=== PATIENT | male | born 1965 | race African-American/Black ===

== ENCOUNTER → 2017-11-18 09:14 | Outpatient (CLI) | payer BC, SELFPAY ==
--- NOTE | 2017-11-18 09:17 | MRI_ITS ---
STUDY: MRI LUMBAR SPINE WITHOUT CONTRAST REASON FOR EXAM: Male, 52 years old. spinal stenosis, BACK PAIN RADIATES INTO L HIP X 1.5 YRS. TECHNIQUE: Standardized fat and water weighted pulse sequences were obtained in the sagittal and axial planes. COMPARISON: None FINDINGS: There is a transitional morphology. Confirmation of Lumbar numbering before surgical intervention is recommended. T12-L1: Normal endplates. Normal disc height, hydration and morphology. Normal central canal and bilateral lateral recesses. Normal bilateral intervertebral neural foramina. There is straightening of the normal lumbar lordosis. There is no substantial scoliosis. Normal conus medullaris that terminates at the L1 L1-2: Normal endplates. Normal disc height, hydration and morphology. Normal central canal and bilateral lateral recesses. Normal bilateral intervertebral neural foramina. There is bilateral facet hypertrophy. L2-3: Normal endplates. Normal disc height, hydration and morphology. Normal bilateral intervertebral neural foramina. There is bilateral facet hypertrophy with no central canal stenosis.. L3-4: There is minimal disc space narrowing and relatively gasless. There is a minimal disc bulge and facet hypertrophy with moderate central canal stenosis. There is mild bilateral foraminal stenosis. L4-5: There is minimal disc space narrowing and relatively gasless. There is a minimal disc bulge and facet hypertrophy with mild central canal stenosis. There is mild bilateral foraminal stenosis. L5-S1: Normal endplates. Normal disc height, hydration and morphology. Normal central canal and bilateral lateral recesses. Normal bilateral intervertebral neural foramina. There is bilateral facet arthropathy. Normal visualized sacral ala. Normal visualized paraspinous soft tissue structures. MRI/Spine Lumbar (Routine) IMPRESSION: Transitional morphology. L3/L4: Moderate central canal stenosis. Electronically Signed: Ignacio Chahal MD at 9:08 EDT Tel , Service support ,
== END ==
PROVIDERS: Family Provider Family Medicine; PCP Family Medicine; Visit Provider Family Medicine
DX: M48.062 Spinal stenosis, lumbar region with neurogenic claudication (principal)
CPT/HCPCS: 72148

== ENCOUNTER → 2018-01-24 13:40 | Outpatient (CLI) | payer BC, SELFPAY ==
--- NOTE | 2018-01-24 13:42 | RAD_ITS ---
STUDY: X-RAY - PELVIS AND BILATERAL HIPS REASON FOR EXAM: Male, 52 years old. Bilateral hip pain. TECHNIQUE: Radiological exam, hip, bilateral, with pelvis when performed; minimum of 5 views COMPARISON: None. FINDINGS: There is a non-specific bowel gas pattern. Normal visualized soft tissue structures. Normal bilateral iliac wings, sacroiliac joints and visualized sacrum. Normal bilateral superior and inferior pubic rami. Normal pubic symphysis. Normal bilateral ischial tuberosities. There are osteoarthritic changes of the right femoral head with marginal osteophyte formation. There is osteoarthritic spur formation of the right acetabular rim. There is severe articular joint space narrowing of the right hip. There are osteoarthritic changes of the left femoral head with marginal osteophyte formation. Normal left acetabulum. There is severe articular joint space narrowing of the left hip. RAD/L/S Spine Min 4 Views IMPRESSION: Marked degenerative changes of the bilateral hips. Electronically Signed: Cristian Gann DO at 15:46 EDT Tel [phone], Service support ,
--- NOTE | 2018-01-24 14:57 | RAD_ITS ---
STUDY: X-RAY - PELVIS AND BILATERAL HIPS REASON FOR EXAM: Male, 52 years old. Bilateral hip pain. TECHNIQUE: Radiological exam, hip, bilateral, with pelvis when performed; minimum of 5 views COMPARISON: None. FINDINGS: There is a non-specific bowel gas pattern. Normal visualized soft tissue structures. Normal bilateral iliac wings, sacroiliac joints and visualized sacrum. Normal bilateral superior and inferior pubic rami. Normal pubic symphysis. Normal bilateral ischial tuberosities. There are osteoarthritic changes of the right femoral head with marginal osteophyte formation. There is osteoarthritic spur formation of the right acetabular rim. There is severe articular joint space narrowing of the right hip. There are osteoarthritic changes of the left femoral head with marginal osteophyte formation. Normal left acetabulum. There is severe articular joint space narrowing of the left hip. RAD/Hips B/L min 2 views w/ Pelvis IMPRESSION: Marked degenerative changes of the bilateral hips. Electronically Signed: Cristian Gann DO at 15:46 EDT Tel [phone], Service support ,
== END ==
PROVIDERS: Family Provider Family Medicine; PCP Family Medicine; Visit Provider Orthopaedic Surgery
DX: M54.5 Low back pain (principal); M25.551 Pain in right hip; M25.552 Pain in left hip
CPT/HCPCS: 72110; 73521

== ENCOUNTER → 2018-01-30 10:00 | Outpatient (CLI) | payer BC, SELFPAY ==
--- NOTE | 2018-01-30 10:05 | MRI_ITS ---
STUDY: MRI CERVICAL SPINE WITHOUT CONTRAST REASON FOR EXAM: Male, 52 years old. Cervical radiculopathy. TECHNIQUE: Standardized fat and water weighted pulse sequences were obtained in the sagittal and axial planes. COMPARISON: None FINDINGS: Normal foramen magnum and brainstem-cervical cord junction. Normal craniovertebral junction. Pronounced degenerative narrowing of the predental space. Normal lateral atlantoaxial articulations. Normal odontoid process. Mild cervical kyphosis at the C4-C5 disc level. Normal vertebral bodies and posterior osseous elements. C2-3: Normal endplates. Normal disc height, signal and morphology. Normal central canal and intervertebral neural foramina. C3-4: Normal endplates. Mild disc space height narrowing. Left posterior disc extrusion with displacement of the left C4 nerve root sleeve (series 2 and 3, image 6; series 7, images 124-131). C4-5: Prominent anterior and posterior marginal spurs and prominent posterior midline disc protrusion. Severe central canal stenosis with spinal cord compression. The AP canal diameter is 2 mm. There is intrinsic signal abnormality of the spinal cord due to myelomalacia from chronic cord compression. C5-6: Smaller anterior and posterior marginal spurs. Normal endplates. Normal disc height with moderate loss of disc hydration. Mild central canal stenosis. The AP canal diameter is 5 mm but the transverse canal diameter is 13.5 mm wide. Moderately pronounced stenosis of the bilateral intervertebral neural foramina. C6-7: Small anterior and posterior marginal spurs. Normal endplates. Mild disc space height narrowing. Normal central canal and bilateral intervertebral neural foramina. C7-T1: Normal endplates. Normal disc height. Small posterior bulging disc. Normal central canal and bilateral intervertebral neural foramina. T1-T2: Normal endplates. Minimal degenerative anterolisthesis of T1 on T2. Normal central canal and bilateral intervertebral neural foramina. T2-T3: (Sagittal only). Normal endplates. Moderate anterior disc space height narrowing. Normal central canal and bilateral intervertebral neural foramina. T3-T4: (Sagittal only). Normal endplates. Normal disc height and morphology. Normal central canal and bilateral intervertebral neural foramina. Abnormal cervical spinal cord due to severe central canal stenosis and the spinal cord compression at C4-C5 disc level. There is intramedullary high signal intensity of the compressed spinal cord due to myomalacia from chronic cord compression. Normal visualized soft tissue structures. MRI/Spine Cervical (Routine) IMPRESSION: 1. Severe central canal stenosis at C4-C5 disc level with posterior midline disc protrusion and posterior marginal spurs causing chronic cord compression with myelomalacia of the spinal cord. 2. Left-sided C3-C4 posterior disc extrusion with displacement of the left C4 nerve root sleeve. 3. Mild central canal stenosis at C5-C6 this level and moderately pronounced stenosis of the bilateral C5-C6 intervertebral neural foramina. Electronically Signed: Vishal Miguel MD at 14:27 EDT , Service support ,
== END ==
PROVIDERS: Family Provider Family Medicine; PCP Family Medicine; Visit Provider Orthopaedic Surgery
DX: M54.12 Radiculopathy, cervical region (principal)
CPT/HCPCS: 72141

== ENCOUNTER 2018-03-12 11:05 | Emergency (ER) | payer BC, SELFPAY ==
[2018-03-12 11:06] VITALS: BP 144/88; PULSE 106; RESP 16; TEMP 36.6; O2SAT 98; BMI 30.5
--- NOTE | 2018-03-12 11:28 | ED.VISSUMM ---
- ER Visit Summary Date of Service: 03/12/18 Chief Complaint: Back pain History of Present Illness: The patient is a 52 M with a history of back spasms. He has had upper lumbar spasms over the last 4 days or so. Patient did have neck surgery 6 days ago at [facility]. He is unsure if he is compensating differently because of his neck surgery or if it was positioning when he was on the operating table that triggered his spasms again. Patient was seen at [place] yesterday and was given morphine, ibuprofen, and Flexeril. Patient does have oxycodone at home his last dose was 5-1/2 hours ago. Physical Examination: Vital signs are unremarkable. Patient is sitting in a wheelchair at bedside. Head neck examination reveals soft c-collar in place. Heart is regular rate and rhythm. Lung sounds are clear. Abdomen is soft with no focal tenderness. Back examination reveals tenderness in the lumbar paraspinals, left greater than right. Lower external examination reveals good strength and sensation throughout with strong distal pulses. Test Results: [] Emergency Department Course and Treatment: Patient was given 1 mg of IM Dilaudid and 5 mg of p.o. Valium. Repeat evaluation 1 hour later reveals the patient with improvement in his symptoms. He still has very mild tension in his lower back but states overall he feels significantly improved. He will be given Valium to use at home for muscle spasm if needed. He currently has Flexeril and was told to take one or the other, but not to combine them. Treatment Plan: [] Disposition: Discharge Impression: Muscle spasm, improved This note was generated with [employer] dictation software. It may contain incorrect words, spelling, and punctuation that were not noted in review of the chart prior to signing ED Disposition - Plan for ED Patient: Chief Complaint: Back Referrals: Danyel Calabrese DO [Primary Care Provider] -
[2018-03-12] MEDS: diazePAM 5 MG Tablet PO (11:36)
[2018-03-12] MEDS: HYDROmorphone 1 MG/ML Syringe IM (11:36)
--- NOTE | 2018-03-12 12:45 | ED.DEP ---
ED Disposition - Plan for ED Patient: Disposition: Home or Assisted Living Chief Complaint: Back Instructions: ED Spasm Muscle Prescriptions: Diazepam [Valium] 5 mg PO Q8 PRN #10 tablet PRN Reason: Muscle Spasm Referrals: Danyel Calabrese DO [Primary Care Provider] - 1 Week
[2018-03-12 13:12] VITALS: BP 150/91; PULSE 95; RESP 18; O2SAT 95
== END 2018-03-12 13:13 | disposition home or self-care (01) ==
PROVIDERS: Emergency Provider Emergency Medicine; Family Provider Family Medicine; PCP Family Medicine
DX: M62.830 Muscle spasm of back (principal); M54.5 Low back pain; I10 Essential (primary) hypertension; E78.00 Pure hypercholesterolemia, unspecified; Z79.82 Long term (current) use of aspirin; Z79.899 Other long term (current) drug therapy
CPT/HCPCS: 96372; 99283

== ENCOUNTER 2018-04-19 07:20 | Inpatient (IN) | payer BC, SELFPAY ==
[2018-04-07 11:00] VITALS: BP 157/95; PULSE 98; RESP 16; TEMP 36.8; O2SAT 98; BMI 30.7
--- NOTE | 2018-04-07 11:09 | SDCEKG_ITS ---
Test Reason : Blood Pressure : / mmHG Vent. Rate : 093 BPM Atrial Rate : 093 BPM P-R Int : 172 ms QRS Dur : 100 ms QT Int : 344 ms P-R-T Axes : 039 -43 020 degrees QTc Int : 427 ms Normal sinus rhythm Left axis deviation Abnormal ECG Confirmed by NETTA BADILLO, BUSHRA ([id number]), video news editor RICHARD DRAPER ([id number]) on 04/12/2018 8:33:21 AM Referred By: Thad Jimenez Confirmed By:BUSHRA CHADWICK MD
[2018-04-07 11:40] LABS: Absolute Lymphocyte Count 1.41 X10^3/ul (0.83-4.51); Absolute Neutrophil Count 2.9 X10^3/uL (2.0-7.7); Basophil# 0.05 X10^3/uL; Eosinophil# 0.11 X10^3/uL; Eosinophils% 2.3 % (0-5); Hematocrit 38.6 % (40-54); Hemoglobin 12.5 g/dl (13.0-16.5); Lymphocyte # 1.41 X10^3/ul (4.0); Lymphocyte % 29.3 % (19-41); Mean Corp Hgb Conc 32.4 g/gl (32-36); Mean Corpuscular Hgb 22.8 pg (27.0-32.0); Mean Corpuscular Volume 70.4 fL (80-94); Mean Platelet Vol. 9.4 fl (6.2-12.0); Monocyte# 0.35 X10^3/uL; Monocyte% 7.3 % (0-10); Neutrophil # 2.88 X10^3/uL (2.7-7.7); Neutrophil % 59.9 % (47-70); Platelet Count 242 K/mm3 (150-450); RBC Distribution Width CV 16.5 % (11.6-14.6); RBC Distribution Width SD 41.9 fl (35.1-43.9); Red Blood Count 5.48 M/mm3 (4.6-6.2); White Blood Count 4.8 K/mm3 (4.4-11.0)
[2018-04-07 11:41] LABS: POSITIVE COUNT NO; POSITIVE DIFFERENTIAL NO; POSITIVE MORPHOLOGY NO
[2018-04-07 11:45] LABS: Prothrombin Time (Protime)PT. 13.1 SECONDS (11.7-14.9)
[2018-04-07 11:46] LABS: Partial Thromboplast Time 25.8 Seconds (24.1-36.2)
[2018-04-07 12:03] LABS: AST(SGOT) 19 U/L (15-37); Alanine Aminotransfer ALT/SGPT 26 U/L (16-61); Albumin, Serum 3.7 g/dL (3.2-5.0); Alkaline Phosphatase 106 U/L (45-117); Anion Gap 11 (5-15); BUN 12 mg/dL (7-18); Bilirubin, Direct 0.19 mg/dL (0.00-0.30); Calcium,Total 9.1 mg/dL (8.5-10.1); Chloride 101 mmol/L (98-107); EST Glomerular Filtration Rate 107 mL/min (>60); Est Glom Filt Rate - Afr Amer 130 mL/min (>60); Estimated Creatinine Clearance 92.89 ml/min; Globulin 4.2 g/dL (2.2-4.2); Glucose 113 mg/dL (74-106); Potassium 3.8 mmol/L (3.5-5.1); Protein, Total 7.9 g/dL (6.4-8.2); Sodium Level 139 mmol/L (136-145)
--- NOTE | 2018-04-09 08:38 | HP.PCM_ITS ---
History and Physical DATE OF SURGERY: 04/19/2018 SCHEDULED PROCEDURE: Direct anterior left total hip arthroplasty HISTORY OF PRESENT ILLNESS: This is a 52-year-old male who has been having ongoing bilateral hip pain for over one year. Pain can reach as high as a 7/10. Pain is sharp and stabbing. He has increased pain going up and down stairs. He has difficult time sleeping due to his pain. Pain is increased with walking. He does get bilateral groin pain. He has difficult time with housework due to his bilateral hip pain. He feels his activities of daily living have been significantly affected. Patient does have start up pain. Patient denies previous surgery on bilateral hips. He has required a cane for ambulatory assistance. Patient has tried conservative measures consisting of ice and previous cortisone injection in pain management with minimal relief. Patient has tried rest, heat, and elevation with no relief. He has tried physical therapy with no relief in symptoms. Patient has been to the chiropractor with no relief in symptoms. Patient recently on March 06 underwent a cervical spine surgery at the [facility] and is doing well postoperatively. Patient states bilateral hip pain continues to progress. After failing conservative measures and discussing all treatment options with Dr. Thad Jimenez, the patient would like to proceed with a direct anterior left total hip arthroplasty. Patient has medical history pertinent for hypertension. He currently denies any chest pain, shortness of breath, fevers chills, recent infections. REVIEW OF SYSTEMS: ROS: Const: Reports difficulty sleeping, but denies anorexia, change in appetite, fever and weight change. CV: Denies chest pain, heart murmur, irregular heartbeat and peripheral vascular disease. Resp: Denies asthma, cough, pneumonia, sleep apnea, shortness of breath, tuberculosis and wheezing. GI: Denies constipation, diarrhea, heartburn, nausea, rectal itching, bloody stools and vomiting. : Denies incontinence. Musculo: Reports pain, trouble walking and weakness, but denies leg swelling. Skin: Denies Raynaud's, history of shingles and tattoo. Neuro: Reports numbness/tingling but denies ambulatory dysfunction, dizziness and tremor. Psych: Reports insomnia and stress, but denies anxiety, depression and mental illness. Matt/Lymph: Denies anemia, bleeding/bruising tendency and past transfusion. Reviewed, no changes. PAST MEDICAL HISTORY: Advance Care Plan: No Advance Directives Effective Date: 04/07/2018 PMH: Medical Problems: High Blood Pressure Accidents: None Surgical Hx: Hernia Repair - 7 YEARS AGO C-3 C-4 C-5 C-6 Removal - (03/06/2018) Anesthesia Complications: None Assistive Devices: Glasses Reviewed and updated. SOCIAL HISTORY: SH: Marital: Single.Occupation: Currently Working.Work Status: Currently Working.Hand Dominance: Right-handed. Personal Habits: Cigarette Use: Never Smoked Cigarettes.Alcohol: Occasionally.Drug Use: Denies Use.Enjoy Exercising: Exercises 1-3 x/month. Reviewed, no changes. VITALS: Ht: 65 Wt: 184lb Wt k.462 BMI: 30.6 BP: 156/103 Pulse: 102 Resp: 16 T: 97.8 T: 36.6C ALLERGIES: No Known Drug Allergy MEDICATIONS: Edarbi 80 mg 1 daily, Amlodipine Besylate 5 mg 1 by mouth every day, Atorvastatin Calcium 10 mg PRE-OP EXAM: General appearance:NORMAL Other: Eyes: Conjunctivae and lids: NORMAL Pupils: ERR Ears, Nose, Mouth, and Throat: NORMAL Other: Inspection of lips, teeth and gums: NORMAL Other: Neck: Examination of neck: no masses noted. Respiratory: Assessment of respiratory effort: NORMAL Other: Auscultation of lungs: clear to auscultation no wheezes, rhonchi or rales. Cardiovascular: Auscultation of heart: regular rate and rhythm, no murmurs, gallops or rubs. Exam of carotid arteries: NORMAL Other: Gastrointestinal: Exam of abdomen: soft, nontender, nondistended bowel sounds present. PHYSICAL EXAMINATION: Patient walks with an antalgic gait. Left hip is cool to touch without erythema. Left hip flexion 85, internal rotation to neutral, external rotation to 25. Sensation intact to light touch. Neurovascularly intact. IMAGING STUDIES: X-rays were obtained at [facility] on April 07, 2018 including 2 views AP pelvis and AP left hip reveals severe osteoarthritis bilaterally with subchondral sclerosis, joint space narrowing, and osteophyte formation. There is [id number] contact in bilateral hips. No acute finding for fracture or dislocation. No lytic or blastic lesion. IMPRESSION: 1. Severe left hip osteoarthritis 2. Severe right hip osteoarthritis 3. Hypertension 4. Recent cervical spine surgery PLAN: Dr. Jimenez did discuss and review with the patient all treatment options including surgical versus nonsurgical options. Patient does wish to proceed with the above-stated procedure. Potential risks, benefits, and complications of the procedure were discussed in detail including but not limited to , infection, nerve and blood vessel damage, persistent pain, numbness, tingling, paresthesias, blood clot, pulmonary embolism, and requirement for possible further surgery. The patient expressed full understanding and has no further questions for the doctor. Patient does agree to proceed with the above-stated procedure and has signed the surgery consent form. We have obtain surgical clearance from patient's primary care physician Dr. Calabrese. ___ I have re-examined the patient. There are no clinical changes since date of exam. ___ See progress notes for changes. ___ Dictated on admission Date: Time: Signature:
--- NOTE | 2018-04-13 10:12 | CASEMGMT ---
Call placed to patient to discuss discharge needs following upcoming surgery. Patient had planned to return home, however, he mentioned going to inpatient rehab if insurance will cover and there's bed availability. Patient wants to have fastest route to getting back on feet. Patient does not have outpatient physical therapy set up yet, has limited assistance with transportation - will have to ask friends if they are able/willing to assist. Patient has a niece that may be able to assist at home if patient returns home after discharge. Patient does have a walker. No grab bars, toilet riser, shower seat. Patient had questions re: insurance coverage for shower seat and/or toilet riser - informed patient insurance generally does not cover these items but they can be purchased OTC. Patient lives in a split level home, bedroom and bathroom are on 2nd level, approx. 6 steps. Informed patient that RN-CM will follow up with him after surgery to discuss discharge planning further. Lorie Ames LPN Clinical Support
[2018-04-19] VITALS (9 sets, daily range): BP systolic 111–157; BP diastolic 62–100; PULSE 85–96; RESP 16–18; TEMP 36.4–37.2; O2SAT 93–98; BMI 30.7
[2018-04-19] MEDS: Acetaminophen 500 MG Tablet 1000 MG PO ×3 (07:57→22:39)
[2018-04-19] MEDS: Celecoxib 200 MG Capsule 400 MG PO (07:57)
[2018-04-19] MEDS: oxyCODONE HCl Cr 10 MG Tablet PO (07:57)
[2018-04-19] MEDS: Lactated Ringers 1,000 ML 999 ML IV (08:20)
[2018-04-19] MEDS: Scopolamine 1mg/72hr Patch 1 PATCH TD (08:46)
[2018-04-19] MEDS: Cefazolin 2 GM in 0.9% Normal Saline 100 ML IV (09:03)
--- NOTE | 2018-04-19 09:28 | RAD_ITS ---
STUDY: X-RAY - PELVIS AND LEFT HIP REASON FOR EXAM: Male, 52 years old. Postoperative study TECHNIQUE: Radiological exam, hip, unilateral, with pelvis when performed; 2 or 3 views. COMPARISON: None. FINDINGS: There is a non-specific bowel gas pattern. Normal visualized soft tissue structures. There is narrowing with cortical sclerosis and osteophyte formation of the sacroiliac joint consistent with degenerative osteoarthritic changes. Normal bilateral superior and inferior pubic rami. There are degenerative changes of the pubic symphysis with articular narrowing and sclerosis. Normal bilateral ischial tuberosities. Left hip arthroplasty in good alignment. RAD/Hip Min 2 Views (Portable) IMPRESSION: Left hip arthroplasty in good alignment. Electronically Signed: Leandra Polk MD at 13:49 EDT Tel , Service support ,
--- NOTE | 2018-04-19 09:48 | RAD_ITS ---
STUDY: X-RAY - PELVIS AND LEFT HIP REASON FOR EXAM: Male, 52 years old. LEFT ANTERIOR TOTAL HIP TECHNIQUE: Radiological exam, hip, unilateral, with pelvis when performed; 5 view intraoperative study. Fluoroscopy time is 14.6 seconds. COMPARISON: None. FINDINGS: A left hip arthroplasty is seen in good alignment. RAD/Hip 1 view with Pelvis IMPRESSION: A left hip arthroplasty is seen in good alignment. Electronically Signed: Leandra Polk MD at 15:02 EDT Tel , Service support ,
--- NOTE | 2018-04-19 11:00 | OP.PCM_ITS ---
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 Accolade 2 Alexa femoral stem size 4 127? 2. Alexa trident 2 acetabular shell size 54 mm 3. Alexa X3 polyethylene E 4. Alexa Biolox delta 36mm, 2.5mm femoral head Brief history operative indications: 52 yo m who failed conservative measures for their hip osteoarthritis. X-rays were consistent with osteoarthritis including joint space narrowing, osteophyte formation and subchondral cysts. Total hip replacement was discussed with the patient with risks and benefits including but not limited to blood loss, DVTs, PEs, neurovascular damage, dislocation, general risks of anesthesia including loss of life. Patient demonstrated an understanding medical clearance is obtained the patient was consented for surgery. Procedure: On the date of procedure the patient's L hip was marked in the preoperative area. Patient was then taken back to the operating room where anesthesia assumed control of the C-spine and airway and administered anesthetic. Patient was transferred to the operating table and placed in the supine position. The hips were placed at the break of the bed and a sacral bump was placed. The L lower extremity was then prepped out in a sterile fashion using chlorhexidine while the surgeon scrubbed. The PA was vital in the positioning of the patient. Upon reentering the room the L lower extremity was draped in the standard orthopedic fashion and the incision was marked. A timeout was called and everyone agreed upon the side, the site, the procedure be performed, antibody given, and patient's identity. At this time incision was made through skin, subcutaneous tissue, and fat down to fascia. The fascia was then incised and the TFL was retracted laterally. A retractor was placed on the lateral border of the femoral neck. Attention was directed to the inferior portion of the approach and all crossing vessels were identified and appropriately coagulated. A retractor was then placed on the medial portion of the femoral neck. The anterior capsule was then cleared of all soft tissue and then H shaped capsulotomy was made. The retractors were then placed inside the capsule. The femoral neck was identified and a cleanup cut was made. At this time a power corkscrew was used to remove the femoral head. Attention was then turned toward the acetabulum where the soft tissues were appropriately retracted and the acetabulum was sequentially reamed to 54 mm. A 54 mm cup was then selected and impacted into place. Acetabular liner was impacted into place and locking mechanism was verified. The position of the acetabular cup was then verified under live fluoroscopy. Attention was then turned to the femur. Soft tissue releases on the medial and lateral femoral neck were appropriately done, the leg was externally rotated and lateralized. A Meraz retractor was placed medially and proximally to the greater trochanter this allowed appropriate visualization and exposure of the femoral canal. Rongeour was then used to remove excess lateral bone. A canal finder and entry broach were used to open the proximal canal. Once we verified we were down the femoral canal we subsequently broached up to a size 4 femur. The appropriate neck was placed in the previously selected head was trialed with a 2.5 mm neck. Traction was pulled and the hip was reduced with internal rotation. Once it was appropriately reduced and stability was checked. There was minimal shuck, equal leg lengths and appropriate stability with hyperextension and external rotation as well as with 90? flexion and internal rotation. Fluoroscopy was then also used to verify the position of the components and leg lengths using the contralateral side for comparison. The trial components were then dislocated the proximal femur was again exposed and the components were removed from the wound. The final components were verified and opened. The wound was copiously irrigated out with normal saline. The acetabulum was checked for any residual debris. The final components were placed and impacted. Traction and internal rotation were again used to reduce the hip. After adequate reduction the hip remained stable with appropriate leg lengths. The final components were once again checked with live fluoroscopy and were found to be satisfactory. The wound was then copiously irrigated with normal saline once more, and hemostasis was obtained. Closure was then done using #1 Vicryl runner to close the fascia. A 2-0 vicryl interuppted sutures were used to close the subcutaneous skin. A 3-0 Monocryl and Steri-Strips were used for final skin closure. A Silverlon dressing was placed. Patient was awakened by anesthesia and transferred to the [facility]. Patient was then transferred to the PACU for recovery. Postoperative plan: Patient will get 24 hours postop antibiotics. Patient will get in-house physical therapy and will be weight-bear as tolerated. Patient will follow up in office in 2 weeks for a wound check and x-rays. Grafts/Implants Used: Alexa Accolade 2 - Complications None - Admit VTE Documentation VTE Present on Admission: No VTE Mechan Device Prophylaxis: SCD's, Thigh High FRANSISCO Hose VTE Pharm Prophylaxis ordered?: Yes
[2018-04-19] MEDS: Lactated Ringers 1,000 ML 125 ML IV (12:48)
[2018-04-19] MEDS: Famotidine 20 MG Tablet PO (12:48)
[2018-04-19] MEDS: Senna/Docusate Sodium 1 Tablet 2 TABLET PO ×2 (12:48→22:39)
--- NOTE | 2018-04-19 13:43 | CASEMGMT ---
Social Work Met with pt in room to discuss d/c plan. Prior to admission pt requesting to go to Inpt Rehab unit at d/c. SW spoke with pt about d/c plans. Pt states he would like to go home is possible but does live alone in a split level home. Pt groggy from surgery at this time and stating having a hard time thinking. SW informed pt that SW will return tomorrow to assess for d/c needs. Pt is agreeable to this. WILLIE Muniz
[2018-04-19] MEDS: Cefazolin 1 GM/50 ML BAG IV (16:47)
[2018-04-19] MEDS: Ferrous Sulfate 325 MG Tablet PO (16:48)
[2018-04-19] MEDS: Folic Acid 1 MG Tablet PO (16:48)
[2018-04-19] MEDS: Aspirin 81 MG TAB.CHEW PO (16:48)
[2018-04-19] MEDS: DiphenhydrAMINE 25 MG Capsule 50 MG PO (22:38)
[2018-04-20] MEDS: Cefazolin 1 GM/50 ML BAG IV (00:51)
[2018-04-20] MEDS: Acetaminophen 500 MG Tablet 1000 MG PO ×3 (05:40→21:11)
[2018-04-20] MEDS: oxyCODONE 5 MG Tablet PO ×2 (05:40→21:11)
[2018-04-20 05:45] VITALS: BP 127/76; PULSE 71; RESP 16; TEMP 36.4; O2SAT 96
[2018-04-20 05:50] LABS: Hematocrit 29.6 % (40-54); Mean Corp Hgb Conc 33.8 g/gl (32-36); Mean Corpuscular Hgb 23.8 pg (27.0-32.0); Mean Corpuscular Volume 70.3 fL (80-94); Mean Platelet Vol. 10.3 fl (6.2-12.0); Platelet Count 263 K/mm3 (150-450); RBC Distribution Width CV 16.2 % (11.6-14.6); RBC Distribution Width SD 40.9 fl (35.1-43.9); Red Blood Count 4.21 M/mm3 (4.6-6.2); White Blood Count 9.4 K/mm3 (4.4-11.0)
[2018-04-20 05:58] LABS: Scan Indicated on CBC? Y/N NO
[2018-04-20 06:10] LABS: Anion Gap 8 (5-15); BUN 12 mg/dL (7-18); BUN/Creat Ratio 15.9 RATIO (10-20); Calcium,Total 8.9 mg/dL (8.5-10.1); Chloride 103 mmol/L (98-107); Creatinine, Serum 0.76 mg/dL (0.70-1.30); EST Glomerular Filtration Rate 114 mL/min (>60); Est Glom Filt Rate - Afr Amer 138 mL/min (>60); Estimated Creatinine Clearance 97.78 ml/min; Glucose 123 mg/dL (74-106); Potassium 4.5 mmol/L (3.5-5.1); Sodium Level 138 mmol/L (136-145)
--- NOTE | 2018-04-20 08:28 | PCM.PN.ORT ---
Subjective: The patient was sitting in bedside chair upon examination. Patient denies any chest pain, shortness of breath, dizziness, lightheadedness, nausea or vomiting, or calf pain. Patient does report pain in the left hip but at this point medications are helping. No adverse overnight events. Patient in March 06, 2018 underwent a cervical spine surgery in which fusion was done. Patient at this time does wish to try to go home but does live at home alone and does require stairs. He is also considering possibly inpatient rehab due to the recent surgery on his neck and hip while living home alone. He has not been through physical therapy today yet. Case management is involved in helping with discharge planning. Objective: Vital signs stable and afebrile. Patient is able to plantarflex and dorsiflex actively. Sensation is intact to light touch to saphenous, sural, superficial and deep peroneal, and tibial distribution. Patient does report tingling into the left toes but states this is been going on prior to the surgery. Dressing is with minimal drainage over the middle one third. There is swelling to the left thigh, thigh is soft and supple. Negative Homans bilaterally, negative signs and symptoms of DVT. - Physical Exam General: Alert, Oriented x3, Cooperative, No apparent distress Vital Signs Temp Pulse Resp BP Pulse Ox 97.5 F L 71 16 127/76 H 96 04/20/18 05:45 04/20/18 05:45 04/20/18 05:45 04/20/18 05:45 04/20/18 05:45 Oxygen Flow Rate (L/min) 2 Oxygen Delivery Method Room Air Weight: 83.9 kg Body Mass Index (BMI) 30.7 Intake and Output for Last 24 Hours 04/18/18 04/19/18 04/20/18 23:59 23:59 23:59 Intake Total 3002 / 3002 1145 / 1145 Balance 3002 / 3002 1145 / 1145 Laboratory Tests Past 24 Hrs 04/20/18 04/20/18 05:18 05:18 WBC 9.4 RBC 4.21 L Hgb 10.0 L Hct 29.6 L MCV 70.3 L MCH 23.8 L MCHC 33.8 RDW 16.2 H RDW Differential 40.9 Plt Count 263 MPV 10.3 Sodium 138 Potassium 4.5 Chloride 103 Carbon Dioxide 27.0 Anion Gap 8 BUN 12 Creatinine 0.76 Estim Creat Clear Calc 97.78 Est GFR (MDRD) Af Amer 138 Est GFR (MDRD) Non-Af 114 BUN/Creatinine Ratio 15.9 Glucose 123 H Calcium 8.9 Medical Necessity - Tobacco Use Smoking Status: Former smoker Assessment/Plan 1. S/P left total hip arthroplasty POD #1 2. Continue Pain Medications: Tylenol and OxyIR 3. DVT Prophylaxis: Aspirin 81 mg twice daily for 4 weeks 4. PT/OT: Weightbearing as tolerated 5. H & H: 10.0/29.6, asymptomatic 6. Encouraged Incentive Spirometry 7. Disposition: Plan will be for possible discharge tomorrow. Case management is involved with discharge planning. Depending on how patient does with physical therapy the plan will be for home with home health therapy versus inpatient rehab. Patient also underwent a previous cervical fusion on March 06, 2018. Patient does live home alone and does require steps for his bedroom/bathroom.
[2018-04-20] MEDS: Ferrous Sulfate 325 MG Tablet PO ×2 (09:09→17:46)
[2018-04-20] MEDS: Aspirin 81 MG TAB.CHEW PO ×2 (09:09→17:46)
[2018-04-20] MEDS: Folic Acid 1 MG Tablet PO ×2 (09:10→17:46)
[2018-04-20] MEDS: amLODIPine 5 MG Tablet PO (09:11)
[2018-04-20] MEDS: Famotidine 20 MG Tablet PO (09:11)
[2018-04-20] MEDS: Meloxicam 7.5 MG Tablet PO ×2 (09:11→21:11)
[2018-04-20] MEDS: Senna/Docusate Sodium 1 Tablet 2 TABLET PO ×2 (09:11→21:10)
--- NOTE | 2018-04-20 09:31 | CASEMGMT ---
Addendum entered by Shanna Alatorre 04/20/18 13:24: ANASTASIA placed a call to Jo with [facility] and updated her that pt will be going home at discharge. Original Note: Social Work Note SW met with pt to confirm discharge plans. Per PT evaluation, pt walked 90ft contact guard assist of 1 with wheeled walker. Per OT evaluation, pt walked 85 ft contact guard assist of 1 with wheeled walker. Pt states that his plan is to return home at discharge. Pt denied needing HHC. Pt states that he will need grab bars. ANASTASIA updated RN DANIELA Orellana that pt wishes to discharge home. RN CM to follow up on HHC and DME needs at discharge. Plan: Pt wishes to discharge home Shanna Alatorre [employer]PER[employer]
[2018-04-20 11:45] VITALS: BP 121/69; PULSE 70; RESP 18; TEMP 36.7; O2SAT 97
--- NOTE | 2018-04-20 14:04 | CASEMGMT ---
Addendum entered by Juventino Eagle 04/20/18 15:00: Per Brooke @ [facility], they are able to accept pt for physical/occupational therapy. There may be a copay depending on his deductible per their review. Jennifer HUMPHREY Original Note: RN CM Assessment. PCP Dr. Calabrese Pharmacy: [facility] Home situation: pt lives alone in split level home. Basement has laundry, main floor has kitchen, living, upstairs- bedroom bath Intro role of CM to patient in room. He states he plans to return home, will need Home therapy on discharge. Pt is agreeable to [facility] on dc for therapy. Pt states he was independent prior to surgery. Lives alone, but has friends who will be able to assist at home as well as with transportation. Discussed going to Outpt therapy when able. Pt lives in [place], but has been to therapy in [place] for neck issues. Pt states he will be able to care for self @ home and will be compliant with exercises and instructions because he plans to return to work, and then will need his other hip replaced also. DME: pt has walker. -PT/OT notified of plan to return home. They will review teaching with pt tomorrow, and will do stair training prior to dc. -Call to [facility], referral made. Awaiting acceptance. -Order for home health placed. Jennifer HUMPHREY
[2018-04-20 17:45] VITALS: BP 129/80; PULSE 97; RESP 18; TEMP 36.8; O2SAT 98
[2018-04-20 20:46] VITALS: BP 148/81; PULSE 80; RESP 18; TEMP 36.7; O2SAT 99
[2018-04-20] MEDS: DiphenhydrAMINE 25 MG Capsule 50 MG PO (23:14)
[2018-04-21 03:13] VITALS: BP 141/85; PULSE 85; RESP 18; TEMP 37; O2SAT 93
[2018-04-21] MEDS: Acetaminophen 500 MG Tablet 1000 MG PO ×2 (05:38→13:37)
[2018-04-21] MEDS: oxyCODONE 5 MG Tablet PO ×2 (05:38→13:37)
[2018-04-21 06:20] LABS: Hematocrit 31.9 % (40-54); Hemoglobin 10.7 g/dl (13.0-16.5); Mean Corp Hgb Conc 33.5 g/gl (32-36); Mean Corpuscular Hgb 23.4 pg (27.0-32.0); Mean Corpuscular Volume 69.8 fL (80-94); Mean Platelet Vol. 10.4 fl (6.2-12.0); Platelet Count 259 K/mm3 (150-450); RBC Distribution Width CV 16.4 % (11.6-14.6); RBC Distribution Width SD 40.9 fl (35.1-43.9); Red Blood Count 4.57 M/mm3 (4.6-6.2); Scan Indicated on CBC? Y/N NO
--- NOTE | 2018-04-21 07:05 | PN.ORTHO_ITS ---
Subjective: The patient was sitting in bed upon examination. Patient denies any chest pain, shortness of breath, dizziness, lightheadedness, nausea or vomiting, or calf pain. Pain is controlled on medications. No adverse overnight events. Plan is for patient to be discharged home with home health therapy. Patient feels he is comfortable and can do things at home on his own. He also has friends who will be helping out. Patient states he has his own stool softener from his previous surgery at home. Objective: Vital signs stable and afebrile. Patient is able to plantarflex and dorsiflex actively. Sensation is intact to light touch to saphenous, sural, superficial and deep peroneal, and tibial distribution. Dressing is is with minimal drainage over the middle one third which is been stable from postoperative day #1 Negative Homans bilaterally, negative signs and symptoms of DVT. - Physical Exam General: Alert, Oriented x3, Cooperative, No apparent distress Vital Signs Temp Pulse Resp BP Pulse Ox 98.6 F 85 18 141/85 H 93 04/21/18 03:13 04/21/18 03:13 04/21/18 03:13 04/21/18 03:13 04/21/18 03:13 Oxygen Flow Rate (L/min) 2 Oxygen Delivery Method Room Air Weight: 83.9 kg Body Mass Index (BMI) 30.7 Intake and Output for Last 24 Hours 04/19/18 04/20/18 04/21/18 23:59 23:59 23:59 Intake Total 3002 / 3002 1385 / 1385 240 / 240 Balance 3002 / 3002 1385 / 1385 240 / 240 Laboratory Tests Past 24 Hrs 04/21/18 05:30 WBC 7.0 RBC 4.57 L Hgb 10.7 L Hct 31.9 L MCV 69.8 L MCH 23.4 L MCHC 33.5 RDW 16.4 H RDW Differential 40.9 Plt Count 259 MPV 10.4 Medical Necessity - Tobacco Use Smoking Status: Former smoker Assessment/Plan 1. S/P left total hip arthroplasty POD #2 2. Continue Pain Medications: Tylenol and OxyIR 3. DVT Prophylaxis: Aspirin 81 mg twice daily for 4 weeks 4. PT/OT: Weightbearing as tolerated 5. H & H: 10.7/31.9, asymptomatic 6. Encouraged Incentive Spirometry 7. Disposition: Patient is orthopedically stable and plan is for discharge home today. Patient will have home health therapy set up. Prescriptions will be E scribed to [facility]. Patient will follow-up per postop instructions. Patient has his own stool softener at home and will use this until his first bowel movement.
[2018-04-21 07:11] VITALS: BP 131/71; PULSE 88; RESP 18; TEMP 36.7; O2SAT 96
--- NOTE | 2018-04-21 07:11 | DCINST_ITS ---
Discharge Diet: No Restrictions Discharge Activity: May Not Drive - while taking narcotic pain medications. May shower in (days): 1 - Turned dressing away from water Ice area for (Minutes): 20 - Every 1-2 hours while awake Weight Bearing Status: Weight bearing as tolerated Elevate: Operative Extremity Additional Activity Instructions:: Wear elastic stockings for 2 weeks. DO NOT use alcohol with narcotic pain medication. DO NOT make important decisions while taking narcotic medication. If you have problems with taking your medication (rash, itching, nausea, etc.) call the office at once. Call your doctor if your incision/area has: Increased Pain/ Swelling, Increased Redness, Foul Smelling Discharge Call your doctor if you observe: Fever of 101 or Higher Remove Dressing in (days):: 3 - Okay to remove on April 24, 2018 Additional Instructions: Follow [facility] postop instructions While taking meloxicam you should not take any other nonsteroidal anti- inflammatory. Allergies/Adverse Reactions: Allergies No Known Allergies Allergy (Verified 04/07/18 10:36) Medications to take at Discharge Amlodipine Besylate [Norvasc] 5 mg PO QDAY 04/07/18 Atorvastatin Calcium 10 mg PO DAILY 04/07/18 Azilsartan Medoxomil [Edarbi] 80 mg PO QDAY 04/07/18 Fluticasone Propionate 2 spray INTRANASAL QDAY PRN 04/07/18 Acetaminophen [Tylenol] 1,000 mg PO Q8 #90 tablet 04/21/18 Aspirin [Aspirin, Baby] 81 mg PO BIDCM #60 tab.chew 04/21/18 Famotidine [Pepcid] 20 mg PO DAILY #30 tablet 04/21/18 Meloxicam [Mobic] 7.5 mg PO BID #30 tablet 04/21/18 Oxycodone [Oxyir] 5 - 10 mg PO Q4H PRN PRN 6 Days #80 tablet 04/21/18 The following prescriptions were given: Oxycodone [Oxyir] 5 - 10 mg PO Q4H PRN PRN 6 Days #80 tablet PRN Reason: Mod-Severe Pain (-04/26) Acetaminophen [Tylenol] 1,000 mg PO Q8 #90 tablet Famotidine [Pepcid] 20 mg PO DAILY #30 tablet Aspirin [Aspirin, Baby] 81 mg PO BIDCM #60 tab.chew Meloxicam [Mobic] 7.5 mg PO BID #30 tablet Primary Care Physician: Danyel Calabrese DO [Primary Care Provider] - Test Results: Test results from this visit will be discussed in further detail at your follow- up appointment, if applicable. Please Follow Up With: Home health physical therapy When: will be set up by Case Management Please Follow Up With: Bernardo Beth PA-C When: 05/03/18 @ 11:00 am
[2018-04-21] MEDS: Meloxicam 7.5 MG Tablet PO (08:14)
[2018-04-21] MEDS: amLODIPine 5 MG Tablet PO (08:14)
[2018-04-21] MEDS: Famotidine 20 MG Tablet PO (08:14)
[2018-04-21] MEDS: Senna/Docusate Sodium 1 Tablet 2 TABLET PO (08:14)
[2018-04-21] MEDS: Aspirin 81 MG TAB.CHEW PO (08:15)
[2018-04-21] MEDS: Ferrous Sulfate 325 MG Tablet PO (08:15)
[2018-04-21] MEDS: Folic Acid 1 MG Tablet PO (08:15)
--- NOTE | 2018-04-21 08:56 | CASEMGMT ---
Addendum entered by Eulalio Orellana 04/21/18 12:27: Start of care to be 04/22/18 Original Note: RN REGINALDO NOTE: IVAN Cox, @ [facility] notified pt being discharged today 04/21. Benito CHOI RN CM
--- NOTE | 2018-04-21 12:28 | CASEMGMT ---
Addendum entered by Eulalio Orellana 04/21/18 12:29: Pt voiced no preference on DME company. Original Note: BRUCE SUAREZ NOTE: Pt reports shower is in the lower floor and has bathtub on main floor. Requesting shower chair. Dr Jimenez notified and script obtained. Script faxed to [facility] along with demographic sheet and insurance information. Benito CHOI RN CM
--- NOTE | 2018-04-21 12:45 | CASEMGMT ---
BRUCE SUAREZ NOTE: Call received from Yuniel who stated could not get pt's deductible to come through on her end. Pt had informed this RNCM that his yearly deductible has been met. Per Yuniel, pt's financial responsibility for the shower chair will be $5.95 as long as his deductible has been met. She stated if for some reason it comes back showing his deductible has not been met, that pt may receive an additional bill for approx $25. Pt made aware of all of this and states he still wishes to get the shower chair. Pt instructed to call Yuniel once he is home so they can make arrangements for shower chair to be delivered to his home. Pt provided with Yuniel's phone number. Pt denies having any further questions or needs at this time. Benito CHOI RN, CM
[2018-04-21 13:00] VITALS: BP 129/79; PULSE 98; RESP 18; TEMP 36.6; O2SAT 99
--- NOTE | 2018-04-21 15:32 | CASEMGMT ---
BRUCE SUAREZ NOTE: RN informed RNCM that pt told her he just realized he is going to need another walker. BRUCE CM to room. Pt reports that he does have his friends walker that he can use, but since he lives in a split-level home, that he is going to need a 2nd walker so he can have one on 2 different floors, so that he won't need to try and take the walker from one floor to the next on the stairs. Pt reports that his niece is going to be staying with him for the next 2 days and that she can take the one walker he has from floor to floor until the 2nd walker can be delivered to his home. Script for FWW obtained from Dr Jimenez and faxed to [facility]. [facility] confirmed they received the fax. Pt was reminded before he was discharged to call [facility] once he returns home so delivery of FWW and shower chair can be arranged. Benito CHOI RN, CM
== END 2018-04-21 14:22 | disposition home health service (06) | DRG 470 ==
LOC: MS3 07:21
PROVIDERS: Anesthesiology; Admitting Provider Specialist; Family Provider Family Medicine; PCP Family Medicine; Visit Provider Specialist
PROC: 0SRB04A Replacement of Left Hip Joint with Ceramic on Polyethylene Synthetic Substitute, Uncemented, Open Approach (ICD-10-PCS; CPT 27284; principal; 2018-04-19 09:05)
DX: M16.0 Bilateral primary osteoarthritis of hip (principal); I10 Essential (primary) hypertension
CPT/HCPCS: 36415; 73501; 73502; 76000; 80048; 80076; 85025; 85027; 85610; 85730; 87077; 87081; 93005; 97110; 97162; 97165; 97530; 97802; C1776; J7120; J2405

== ENCOUNTER 2018-07-03 12:00 | Outpatient (RCR) | payer BC, SELFPAY ==
--- NOTE | 2018-05-08 09:04 | HP.PTEVAL ---
Patient's Visit Information DENNIS ANAYA is a 52 year old M referred to Physical Therapy by MARZENA Alegria with a diagnosis of L Hip OA s/p GRZEGORZ 04/19, anterior. Date of Evaluation: 05/08/18 Physical Therapist: Nader Roy DPT, OC - Visit Plan Frequency: 3x /Week Duration: 4-6 Weeks Plan: 3x/week for 4 weeks for. 1. scar massage. 2. strength and ROM L hip. 3. strength L hip. 4. gait progression away from AD and to tolerate work. 5. ice - Subjective Subjective: Apr 19 had anterior approach L GRZEGORZ. Hip was worn out. History includes cervical surgery from pinched nerves fusion. That took care of most of numbness in UE. That was 03/06/18. Then wanted L GRZEGORZ MAE and done on 04/19. Wants to have R one done in June. Not much pain in the last week. Had home PT for the last 3 weeks. Used cane for last three weeks. Had x rays last week and time for outpatient PT. Has never slept well, has worked nights for 24 years. Hip feels tight but otherwise not keeping him up. Wearing compression garmnets. Lives alone, doing everything on his own. Has 6 steps with rail whcih he can go up and down with R LE. Not driving, baron brought him. Has to be off pain meds and walk 150 feet without cane. 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 Hobbies: R hip surgery needs done and wants to be back. Ex AP , QS, gluts sets, HS. - Objective Ambulates with cane in R UE I with short R step and decreased stance time on L. Wide ADE but mod I. Without AD is slow and magnifies above deficitis but I 250 feet today. Steps are using R only and needs rail and cane, ascends either, L with diminished confidence on way down. Sits with weight through R hip. Transfers I with UE. Scarring is dry anteriorly with steristrips in place, Max scar tissue proximally around incision. Minimal tenderness. 0 degrees hip extension, 20 degrees L hip abd, 70 AROM flexion and 85 passive limited by patient hesitant. knee ext hesitant but full, flexion 115 L and 120 R. ankle AROM and strength full and 4+/5 B. Knee strength 4/5 L and 4+ R. Hip NT L and 4+ R. Sensation WNL to gross light touch in B LE. reflexes 2/3 B patell and achilles. Good balance in standing, lacks confidence. - Goals Goal 1:: Walk without AD community without gait deviations Goal Time Frame: 4-6 Weeks Goal 2:: Patient ready to return to work with L hip Goal Time Frame: 4-6 Weeks Goal 3:: Steps reciprocally without rail Goal Time Frame: 4-6 Weeks Goal 4:: Pt feel 90% back to normal Goal Time Frame: 4-6 Weeks - Rehabilitation Potential Physical Therapy Diagnosis: s/p L GRZEGORZ anterior approach Rehabilitation Potential: Good - Anticipated Interventions Patient/Client Instruction: Educate patient on: Condition, Plan of Care For the Purpose of:: To improve muscle performance and motor function, To increase tolerance to activity/condition/position Therapeutic Exercise to Include: Strength training, Balance training, Gait and locomotor training, Passive ROM, Active ROM For the Purpose of:: To decrease pain, To increase ROM, To increase oxygenation perfusion, To improve muscle performance and motor function, To increase tolerance to activity/condition/position Manual Therapy Techniques to Include: Scar massage For the Purpose of:: To increase ROM Cryotherapy (ice pack, ice massage): Yes For the Purpose of:: To decrease swelling/inflammation Thank you for the opportunity to evaluate your patient. For Medicare and Medicare HMO plans, please review the plan of care and approve it. It will need to be FAXED BACK to us at [phone] for Medicare purposes. Please let me know if there are questions or concerns regarding this plan of care. Physician Signature: Date:
[2018-06-06 13:26] VITALS: BMI 30.7
--- NOTE | 2018-06-09 09:57 | HP.PTREVAL ---
MARZENA Alegria, It has been my pleasure to treat DENNIS ANAYA over the last 12 visits for L Hip OA s/p GRZEGORZ 04/19, anterior. Please see the progress note below for an update on the physical therapy plan of care! Subjective: Released Tuesday by Dr. Hannah. Luli doctor worried about blood pressure. Lifestyle makes his blood pressure high(drinking adn watching football). On new blood pressure meds and will contact doctor tomorrow. Hip is not a problem. R hip pain lately is problem and surgery scheduled for 07/08. L hip is not painful, just stiff in morning, loosens up after a while. Rolling at home helps. Not using cane at home anymore.Bridging helps at home. Objective/Function: weakness with flexion leg raise and tight anteriorly with prone knee flexion. Steps are reciprocal and no rail, R antalgia with walking. Exits chair without UE. Stiff exitting chair and has to take a minute to stand up straight. should be OK to return to work from the hip point of view but not perfectly comfortable. Plan Plan: 2x/week x4 weeks... Please strengthen L hip, R hip without increasing pain. Work on flexibility of R hip extension gently. Goals Goal 1:: Walk without AD community without gait deviations Goal Time Frame: 4-6 Weeks Goal Progress: R antalgia Goal 2:: Patient ready to return to work with L hip Goal Time Frame: 4-6 Weeks Goal Progress: Goal Met Goal 3:: Steps reciprocally without rail Goal Time Frame: 4-6 Weeks Goal Progress: Goal Met Goal 4:: Pt feel 90% back to normal Goal Time Frame: 4-6 Weeks Goal Progress: Progressing Anticipated Interventions Patient/Client Instruction: Educate patient on: Condition, Plan of Care For the Purpose of:: To improve muscle performance and motor function, To increase tolerance to activity/condition/position Therapeutic Exercise to Include: Strength training, Balance training, Gait and locomotor training, Passive ROM, Active ROM For the Purpose of:: To decrease pain, To increase ROM, To increase oxygenation perfusion, To improve muscle performance and motor function, To increase tolerance to activity/condition/position Manual Therapy Techniques to Include: Scar massage For the Purpose of:: To increase ROM Cryotherapy (ice pack, ice massage): Yes For the Purpose of:: To decrease swelling/inflammation Please do not hesitate to contact me at [phone] by phone or if you have questions or concerns regarding this new plan of care! Sincerely, Nader Roy DPT, OC
--- NOTE | 2018-07-03 12:31 | HP.PTDCSUM ---
HP - PT D/C Summary It has been my pleasure to treat DENNIS ANAYA under orders from MARZENA Alegria, for the diagnosis of L Hip OA s/p GRZEGORZ for a total of 14 visit(s). Discharge Date: 07/03/18 Please see the following information for a summary of their discharge status. - Subjective Subjective: Will have R hip replaced in two days. L one gets stiff but no pain. Been back to work for 15 days. Picking up 50# bag without difficulty but walking with them hurts R side. Sleep is normal. On pain meds for R hip. - Pain LEFT- SURGICAL Pain Intensity (Out of 10): 0 RIGHT HIP- NON SURGICAL Pain Intensity (Out of 10): 8 - Overall Improvement % Improvement: 80 - Objective Objective/Function: ROM L hip 100 flexion and 25 abd. Extension to 8 degrees. Walks well with some R antalgia minimally steps are reciprocal without pain. strength L hip 4+ hip ext, 4 abd and 5 flexion. Doing well overall. Tightness in gluts B is most noticeable limiting B hip flexion. - Goals Goal 1:: Walk without AD community without gait deviations Goal Progress: Goal Met Goal 2:: Patient ready to return to work with L hip Goal Progress: Goal Met Goal 3:: Steps reciprocally without rail Goal Progress: Goal Met Goal 4:: Pt feel 90% back to normal Goal Progress: Progressing - Plan Plan: D/C L GRZEGORZ chart. Will open new right chart when ordered. - D/C Information Discharge Comments: Pt to have R GRZEGORZ on Tuesday in two days and will return when ordered for rehab. If there are questions or concerns regarding this patient's physical therapy, please feel free to call me at [phone]. Thank you for the referral of this patient. Sincerely, Nader Roy, DPT, OCS, CSCS
== END 2018-07-03 19:00 | disposition home or self-care (01) ==
LOC: PT 12:00
PROVIDERS: Family Provider Family Medicine; PCP Family Medicine; Referring Provider Physician Assistant Surgical; Visit Provider Physician Assistant Surgical
DX: Z96.642 Presence of left artificial hip joint (principal); Z74.1 Need for assistance with personal care
CPT/HCPCS: 97110; 97116; 97162; 97164; 97530

== ENCOUNTER 2018-07-05 05:21 | Inpatient (IN) | payer BC, SELFPAY ==
[2018-06-23 14:56] VITALS: BP 146/89; PULSE 94; RESP 16; TEMP 37.4; O2SAT 97; BMI 32.0
[2018-06-23 15:25] LABS: Absolute Lymphocyte Count 1.37 X10^3/ul (0.83-4.51); Absolute Neutrophil Count 4.2 X10^3/uL (2.0-7.7); Basophil# 0.05 X10^3/uL; Basophil% 0.8 % (0-1); Eosinophil# 0.07 X10^3/uL; Eosinophils% 1.2 % (0-5); Hematocrit 37.6 % (40-54); Hemoglobin 12.3 g/dl (13.0-16.5); Lymphocyte # 1.37 X10^3/ul (4.0); Lymphocyte % 22.6 % (19-41); Mean Corp Hgb Conc 32.7 g/gl (32-36); Mean Corpuscular Volume 70.4 fL (80-94); Mean Platelet Vol. 9.4 fl (6.2-12.0); Monocyte% 6.6 % (0-10); Neutrophil # 4.18 X10^3/uL (2.7-7.7); Neutrophil % 68.8 % (47-70); Platelet Count 315 K/mm3 (150-450); RBC Distribution Width CV 15.8 % (11.6-14.6); RBC Distribution Width SD 40.7 fl (35.1-43.9); Red Blood Count 5.34 M/mm3 (4.6-6.2); White Blood Count 6.1 K/mm3 (4.4-11.0)
[2018-06-23 15:35] LABS: Anion Gap 12 (5-15); BUN 21 mg/dL (7-18); BUN/Creat Ratio 28.8 RATIO (10-20); Calcium,Total 9.2 mg/dL (8.5-10.1); Chloride 101 mmol/L (98-107); Creatinine, Serum 0.73 mg/dL (0.70-1.30); EST Glomerular Filtration Rate 119 mL/min (>60); Est Glom Filt Rate - Afr Amer 144 mL/min (>60); Estimated Creatinine Clearance 96.86 ml/min; Glucose 91 mg/dL (74-106); Potassium 3.8 mmol/L (3.5-5.1); Sodium Level 136 mmol/L (136-145)
[2018-06-23 15:39] LABS: POSITIVE COUNT NO; POSITIVE DIFFERENTIAL NO; POSITIVE MORPHOLOGY NO
[2018-06-29 13:48] VITALS: BMI 32.0
[2018-07-05] VITALS (10 sets, daily range): BP systolic 116–155; BP diastolic 62–116; PULSE 74–95; RESP 15–18; TEMP 36.4–37.3; O2SAT 95–100; BMI 32.0
[2018-07-05] MEDS: Celecoxib 200 MG Capsule 400 MG PO (05:51)
[2018-07-05] MEDS: oxyCODONE HCl Cr 10 MG Tablet PO (05:51)
[2018-07-05] MEDS: Acetaminophen 500 MG Tablet 1000 MG PO ×3 (05:51→21:00)
[2018-07-05] MEDS: Lactated Ringers 1,000 ML 999 ML IV ×2 (06:35→09:00)
--- NOTE | 2018-07-05 07:03 | RAD_ITS ---
STUDY: X-RAY - RIGHT HIP REASON FOR EXAM: Male, 53 years old. Status post right total hip replacement. TECHNIQUE: 2 views of the hip. COMPARISON: Comparison is made with prior examination done earlier today. FINDINGS: The patient is status post right total hip replacement. There is normal alignment. Postoperative soft tissue changes. RAD/Hip Min 2 Views (Portable) IMPRESSION: Status post right total hip replacement. There is good alignment. Electronically Signed: Guevara Ramírez MD at 10:19 EST Tel [phone], Service support ,
[2018-07-05] MEDS: Cefazolin 2 GM in 0.9% Normal Saline 100 ML IV (07:12)
--- NOTE | 2018-07-05 07:15 | RAD_ITS ---
STUDY: X-RAY - RIGHT HIP REASON FOR EXAM: Male, 53 years old. Right anterior total hip replacement. TECHNIQUE: 2 views of the hip. COMPARISON: None. FINDINGS: Intraoperative imaging provided for right anterior total hip replacement. There is good alignment. RAD/Hip 1 view with Pelvis IMPRESSION: Intraoperative imaging provided for right anterior total hip replacement. Electronically Signed: Guevara Ramírez MD at 10:17 EST Tel [phone], Service support ,
--- NOTE | 2018-07-05 08:27 | PCM.OPRPT ---
Report of Operation Date of Procedure: 07/05/18 Pre-Operative Diagnosis: Right hip primary osteoarthritis Post-Operative Diagnosis: Right hip primary osteoarthritis Surgery/Procedure Performed:: Left Direct Anterior GRZEGORZ Description of Surgical Findings:: Stable hip with equal leg lengths anthropology faculty member: Ute Arguello Type of Anesthesia:: General Anesthesiologist: Braden Foster Special Medications: 2 g Ancef, 1 g TXA at incision, 1 g TXA closure, 10 mg Decadron, joint cocktail (5 mg Duramorph, 30 mL of 0.5% Ropivicaine, 1000 units of epinephrine, 30 mg of Toradol) Specimen's removed: Bony cuts Estimated Blood Loss (mL): 150 Fluids Replaced: 1200 ml Description of Procedure: Components used: 1. Accolade 2 Alexa femoral stem size 4 127? 2. [place] trident acetabular shell size 54 mm 3. Alexa X3 polyethylene neutral 4. Alexa Biolox delta 36mm, 0mm femoral head Brief history operative indications: 53 yo M who failed conservative measures for their hip osteoarthritis. X-rays were consistent with osteoarthritis including joint space narrowing, osteophyte formation and subchondral cysts. Total hip replacement was discussed with the patient with risks and benefits including but not limited to blood loss, DVTs, PEs, neurovascular damage, dislocation, general risks of anesthesia including loss of life. Patient demonstrated an understanding medical clearance is obtained the patient was consented for surgery. Procedure: On the date of procedure the patient's R hip was marked in the preoperative area. Patient was then taken back to the operating room where anesthesia assumed control of the C-spine and airway and administered anesthetic. Patient was transferred to the operating table and placed in the supine position. The hips were placed at the break of the bed and a sacral bump was placed. The R lower extremity was then prepped out in a sterile fashion using chlorhexidine while the surgeon scrubbed. The PA was vital in the positioning of the patient. Upon reentering the room the R lower extremity was draped in the standard orthopedic fashion and the incision was marked. A timeout was called and everyone agreed upon the side, the site, the procedure be performed, antibody given, and patient's identity. At this time incision was made through skin, subcutaneous tissue, and fat down to fascia. The fascia was then incised and the TFL was retracted laterally. A retractor was placed on the lateral border of the femoral neck. Attention was directed to the inferior portion of the approach and all crossing vessels were identified and appropriately coagulated. A retractor was then placed on the medial portion of the femoral neck. The anterior capsule was then cleared of all soft tissue and then H shaped capsulotomy was made. The retractors were then placed inside the capsule. The femoral neck was identified and a cleanup cut was made. At this time a power corkscrew was used to remove the femoral head. Attention was then turned toward the acetabulum where the soft tissues were appropriately retracted and the acetabulum was sequentially reamed to 54 mm. A 54 mm cup was then selected and impacted into place. Acetabular liner was impacted into place and locking mechanism was verified. The position of the acetabular cup was then verified under live fluoroscopy. Attention was then turned to the femur. Soft tissue releases on the medial and lateral femoral neck were appropriately done, the leg was externally rotated and lateralized. A Meraz retractor was placed medially and proximally to the greater trochanter this allowed appropriate visualization and exposure of the femoral canal. Rongeour was then used to remove excess lateral bone. A canal finder and entry broach were used to open the proximal canal. Once we verified we were down the femoral canal we subsequently broached up to a size 4 femur. The appropriate neck was placed in the previously selected head was trialed with a 0 mm neck. Traction was pulled and the hip was reduced with internal rotation. Once it was appropriately reduced and stability was checked. There was minimal shuck, equal leg lengths and appropriate stability with hyperextension and external rotation as well as with 90? flexion and internal rotation. Fluoroscopy was then also used to verify the position of the components and leg lengths using the contralateral side for comparison. The trial components were then dislocated the proximal femur was again exposed and the components were removed from the wound. The final components were verified and opened. The wound was copiously irrigated out with normal saline. The acetabulum was checked for any residual debris. The final components were placed and impacted. Traction and internal rotation were again used to reduce the hip. After adequate reduction the hip remained stable with appropriate leg lengths. The final components were once again checked with live fluoroscopy and were found to be satisfactory. The wound was then copiously irrigated with normal saline once more, and hemostasis was obtained. Closure was then done using #1 Vicryl runner to close the fascia. A 2-0 vicryl interuppted sutures were used to close the subcutaneous skin. A 3-0 Monocryl and Steri-Strips were used for final skin closure. A Silverlon dressing was placed. Patient was awakened by anesthesia and transferred to the [facility]. Patient was then transferred to the PACU for recovery. Postoperative plan: Patient will get 24 hours postop antibiotics. Patient will get in-house physical therapy and will be weight-bear as tolerated. Patient will follow up in office in 2 weeks for a wound check and x-rays. Grafts/Implants Used: Accolade 2, Trident 2 alexa - Complications none - Admit VTE Documentation VTE Present on Admission: No VTE Mechan Device Prophylaxis: SCD's, Thigh High FRANSISCO Hose VTE Pharm Prophylaxis ordered?: Yes
[2018-07-05] MEDS: Ketorolac 15 MG/ML Vial IV (09:35)
--- NOTE | 2018-07-05 10:30 | CASEMGMT ---
RN DANIELA Face to Face with patient for initial transition planning/care coordination assessment. RN CM introduced self and role at [facility]. Patient lying in bed, alert and oriented, friends at bedside. Patient willing to participate in assessment and is able to answer all questions appropriately. Care providers, pharmacy, and demographics verified. Patient wishes to discharge home with outpatient therapy vs HHC. Patient states he has no further needs or concerns at this time. CM to follow for discharge planning needs that may arise. PCP: Danyel Calabrese Specialists: None Preferred Pharmacy: [facility] Insurance: [employer] Prescription Benefit: [employer] Living Will/HPOA: None LNOK: Niece Living Arrangements: Patient lives alone in split level home. Transportation: Friends willing to transport to therapy DME/HHC: Patient was walker and shower chair that was setup previously. Disposition Plan: Patient to discharge with HHC vs Outpatient therapy, support of friends, and follow-up plans in place. Shanna CHOI, RN, CM
[2018-07-05] MEDS: Famotidine 20 MG Tablet PO (10:44)
[2018-07-05] MEDS: Senna/Docusate Sodium 1 Tablet 2 TABLET PO ×2 (10:44→21:00)
[2018-07-05] MEDS: Scopolamine 1mg/72hr Patch 1 PATCH TD (10:45)
[2018-07-05] MEDS: Pantoprazole Sodium 40 MG Tablet PO (10:45)
[2018-07-05] MEDS: Lactated Ringers 1,000 ML 125 ML IV (10:50)
[2018-07-05] MEDS: Cefazolin 1 GM/50 ML BAG IV ×2 (14:56→22:52)
[2018-07-05] MEDS: Aspirin 81 MG TAB.CHEW PO (16:13)
[2018-07-05] MEDS: Atorvastatin Calcium 10 MG Tablet PO (21:00)
[2018-07-06 05:02] VITALS: BP 137/77; PULSE 87; RESP 14; TEMP 37.1; O2SAT 97
[2018-07-06] MEDS: Acetaminophen 500 MG Tablet 1000 MG PO ×3 (05:04→22:13)
[2018-07-06] MEDS: oxyCODONE 5 MG Tablet PO ×3 (05:05→22:14)
[2018-07-06 06:04] LABS: Hematocrit 31.1 % (40-54); Hemoglobin 10.3 g/dl (13.0-16.5); Mean Corp Hgb Conc 33.1 g/gl (32-36); Mean Corpuscular Hgb 23.3 pg (27.0-32.0); Mean Corpuscular Volume 70.2 fL (80-94); Mean Platelet Vol. 10.2 fl (6.2-12.0); Platelet Count 275 K/mm3 (150-450); RBC Distribution Width CV 15.3 % (11.6-14.6); RBC Distribution Width SD 38.9 fl (35.1-43.9); Red Blood Count 4.43 M/mm3 (4.6-6.2); White Blood Count 10.5 K/mm3 (4.4-11.0)
[2018-07-06 06:22] LABS: Scan Indicated on CBC? Y/N NO
[2018-07-06 06:30] LABS: Anion Gap 8 (5-15); BUN 11 mg/dL (7-18); BUN/Creat Ratio 11.8 RATIO (10-20); Calcium,Total 8.6 mg/dL (8.5-10.1); Chloride 103 mmol/L (98-107); Creatinine, Serum 0.93 mg/dL (0.70-1.30); EST Glomerular Filtration Rate 90 mL/min (>60); Est Glom Filt Rate - Afr Amer 109 mL/min (>60); Estimated Creatinine Clearance 76.03 ml/min; Glucose 125 mg/dL (74-106); Potassium 3.7 mmol/L (3.5-5.1); Sodium Level 140 mmol/L (136-145)
[2018-07-06] MEDS: Aspirin 81 MG TAB.CHEW PO ×2 (07:31→16:46)
[2018-07-06] MEDS: Meloxicam 7.5 MG Tablet PO ×2 (07:33→22:14)
[2018-07-06] MEDS: Famotidine 20 MG Tablet PO (07:33)
[2018-07-06] MEDS: amLODIPine 10 MG Tablet PO (07:33)
--- NOTE | 2018-07-06 08:15 | PCM.PN.ORT ---
Subjective: The patient was sitting in bedside chair upon examination. Patient denies any chest pain, shortness of breath, dizziness, lightheadedness, nausea or vomiting, or calf pain. Pain is controlled on medications. No adverse overnight events. Patient is complaining of continued pain in his right hip. Patient lives home alone and states he will not be able to get a ride to outpatient physical therapy. Patient still does wish to go home when medically ready but would like home health care set up due to no transportation. Objective: Vital signs stable and afebrile. Patient is able to plantarflex and dorsiflex actively. Sensation is intact to light touch to saphenous, sural, superficial and deep peroneal, and tibial distribution. Dressing is clean dry and intact. Negative Homans bilaterally, negative signs and symptoms of DVT. - Physical Exam General: Alert, Oriented x3, Cooperative, No apparent distress Vital Signs Temp Pulse Resp BP Pulse Ox 98.8 F 87 14 137/77 H 97 07/06/18 05:02 07/06/18 05:02 07/06/18 05:02 07/06/18 05:02 07/06/18 05:02 Oxygen Flow Rate (L/min) 2 Oxygen Delivery Method Room Air Weight: 84.6 kg Body Mass Index (BMI) 32.0 Intake and Output for Last 24 Hours 07/04/18 07/05/18 07/06/18 23:59 23:59 23:59 Intake Total 5831 / 5831 500 / 500 Output Total 875 / 875 Balance 4956 / 4956 500 / 500 Laboratory Tests Past 24 Hrs 07/06/18 07/06/18 05:36 05:36 WBC 10.5 RBC 4.43 L Hgb 10.3 L Hct 31.1 L MCV 70.2 L MCH 23.3 L MCHC 33.1 RDW 15.3 H RDW Differential 38.9 Plt Count 275 MPV 10.2 Sodium 140 Potassium 3.7 Chloride 103 Carbon Dioxide 29.0 Anion Gap 8 BUN 11 Creatinine 0.93 Estim Creat Clear Calc 76.03 Est GFR (MDRD) Af Amer 109 Est GFR (MDRD) Non-Af 90 BUN/Creatinine Ratio 11.8 Glucose 125 H Calcium 8.6 Medical Necessity - Tobacco Use Smoking Status: Former smoker Assessment/Plan 1. S/P right direct anterior total hip arthroplasty POD #1 2. Continue Pain Medications: Tylenol and OxyIR 3. DVT Prophylaxis: 81 mg aspirin twice daily with food for 4 weeks 4. PT/OT: Weightbearing as tolerated 5. H & H: 10.3/31.3, asymptomatic 6. Encouraged Incentive Spirometry 7. Disposition: Plan is for discharge home tomorrow. Will need to get patient set up for home health physical therapy and cancel his outpatient physical therapy appointment.
[2018-07-06 14:10] VITALS: BP 115/78; PULSE 86; RESP 18; TEMP 37.2; O2SAT 96
[2018-07-06 21:53] VITALS: BP 156/85; PULSE 92; RESP 16; TEMP 37.6; O2SAT 98
[2018-07-06] MEDS: traZODone 50 MG Tablet PO (22:14)
[2018-07-06] MEDS: Atorvastatin Calcium 10 MG Tablet PO (22:14)
[2018-07-07 04:36] VITALS: BP 162/75; PULSE 82; RESP 16; TEMP 37.3; O2SAT 96
[2018-07-07 06:02] LABS: Hematocrit 30.1 % (40-54); Hemoglobin 9.9 g/dl (13.0-16.5); Mean Corp Hgb Conc 32.9 g/gl (32-36); Mean Corpuscular Hgb 23.1 pg (27.0-32.0); Mean Corpuscular Volume 70.2 fL (80-94); Mean Platelet Vol. 10.7 fl (6.2-12.0); Platelet Count 259 K/mm3 (150-450); RBC Distribution Width CV 15.2 % (11.6-14.6); RBC Distribution Width SD 37.9 fl (35.1-43.9); Red Blood Count 4.29 M/mm3 (4.6-6.2); White Blood Count 7.1 K/mm3 (4.4-11.0)
[2018-07-07 06:09] LABS: Scan Indicated on CBC? Y/N NO
--- NOTE | 2018-07-07 06:18 | PCM.PN.ORT ---
Subjective: The patient was sitting in bedside chair upon examination. Patient denies any chest pain, shortness of breath, dizziness, lightheadedness, nausea or vomiting, or calf pain. Pain is controlled on medications. No adverse overnight events. Plan is for discharge home today. Patient states he does not have transportation to physical therapy and would like home health set up. This was discussed with case management yesterday. Objective: Vital signs stable and afebrile. Patient is able to plantarflex and dorsiflex actively. Sensation is intact to light touch to saphenous, sural, superficial and deep peroneal, and tibial distribution. Dressing is clean dry and intact. Negative Homans bilaterally, negative signs and symptoms of DVT. - Physical Exam General: Alert, Oriented x3, Cooperative, No apparent distress Vital Signs Temp Pulse Resp BP Pulse Ox 99.1 F 82 16 162/75 H 96 07/07/18 04:36 07/07/18 04:36 07/07/18 04:36 07/07/18 04:36 07/07/18 04:36 Oxygen Flow Rate (L/min) 2 Oxygen Delivery Method Room Air Weight: 84.6 kg Body Mass Index (BMI) 32.0 Intake and Output for Last 24 Hours 07/05/18 07/06/18 07/07/18 23:59 23:59 23:59 Intake Total 5831 / 5831 1860 / 1860 300 / 300 Output Total 875 / 875 Balance 4956 / 4956 1860 / 1860 300 / 300 Laboratory Tests Past 24 Hrs 07/06/18 07/06/18 07/07/18 05:36 05:36 05:22 WBC 10.5 7.1 RBC 4.43 L 4.29 L Hgb 10.3 L 9.9 L Hct 31.1 L 30.1 L MCV 70.2 L 70.2 L MCH 23.3 L 23.1 L MCHC 33.1 32.9 RDW 15.3 H 15.2 H RDW Differential 38.9 37.9 Plt Count 275 259 MPV 10.2 10.7 Sodium 140 Potassium 3.7 Chloride 103 Carbon Dioxide 29.0 Anion Gap 8 BUN 11 Creatinine 0.93 Estim Creat Clear Calc 76.03 Est GFR (MDRD) Af Amer 109 Est GFR (MDRD) Non-Af 90 BUN/Creatinine Ratio 11.8 Glucose 125 H Calcium 8.6 Medical Necessity - Tobacco Use Smoking Status: Former smoker Assessment/Plan 1. S/P right direct anterior total hip arthroplasty POD #2 2. Continue Pain Medications: Tylenol and OxyIR 3. DVT Prophylaxis: 81 mg aspirin twice daily with food for 4 weeks 4. PT/OT: Weightbearing as tolerated 5. H & H: 9.9/30.1, asymptomatic 6. Encouraged Incentive Spirometry 7. Disposition: Orthopedically stable, plan will be for discharge home today. Prescriptions will be E scribed to [facility]. Patient will follow-up per postop instructions. I would like case management to discuss home health physical therapy versus outpatient physical therapy. Patient is stating that he has no ride to physical therapy around the holidays and lives by himself.
--- NOTE | 2018-07-07 06:24 | PCM.DC.THR ---
Discharge Diet: No Restrictions Discharge Activity: May Not Drive - while taking narcotic pain medications. May shower in (days): 1 - Turned dressing away from water Ice area for (Minutes): 20 - Every 1-2 hours while awake Weight Bearing Status: Weight bearing as tolerated Elevate: Operative Extremity Additional Activity Instructions:: Wear elastic stockings for 2 weeks. DO NOT use alcohol with narcotic pain medication. DO NOT make important decisions while taking narcotic medication. If you have problems with taking your medication (rash, itching, nausea, etc.) call the office at once. Call your doctor if your incision/area has: Increased Pain/ Swelling, Increased Redness, Foul Smelling Discharge Call your doctor if you observe: Fever of 101 or Higher Remove Dressing in (days):: 3 - Okay to remove on July 10, 2018 Additional Instructions: Follow [place] [facility] postop instructions Allergies/Adverse Reactions: Allergies No Known Allergies Allergy (Verified 06/23/18 14:35) Medications to take at Discharge Atorvastatin Calcium 10 mg PO DAILY 04/07/18 Azilsartan Medoxomil [Edarbi] 80 mg PO QDAY 04/07/18 Fluticasone Propionate 2 spray INTRANASAL QDAY PRN 04/07/18 amlodipine 10 mg tablet 10 mg PO QDAY #30 tab 06/06/18 trazodone 50 mg tablet 50 mg PO DAILY PRN #30 tab 06/06/18 Acetaminophen [Tylenol] 1,000 mg PO Q8 #90 tablet 07/07/18 Aspirin [Aspirin, Baby] 81 mg PO BIDCM #60 tab.chew 07/07/18 Famotidine [Pepcid] 20 mg PO DAILY #30 tablet 07/07/18 Meloxicam [Mobic] 7.5 mg PO BID #60 tablet 07/07/18 Oxycodone [Oxyir] 5 - 10 mg PO Q4H PRN PRN 5 Days #60 tablet 07/07/18 Senna/Docusate Sodium [Senokot-S] 2 tablet PO BID tablet 07/07/18 The following prescriptions were given: Oxycodone [Oxyir] 5 - 10 mg PO Q4H PRN PRN 5 Days #60 tablet PRN Reason: Mod-Severe Pain (4-04/26) Acetaminophen [Tylenol] 1,000 mg PO Q8 #90 tablet Famotidine [Pepcid] 20 mg PO DAILY #30 tablet Aspirin [Aspirin, Baby] 81 mg PO BIDCM #60 tab.chew Meloxicam [Mobic] 7.5 mg PO BID #60 tablet Primary Care Physician: Danyel Calabrese DO [Primary Care Provider] - Test Results: Test results from this visit will be discussed in further detail at your follow-up appointment, if applicable. Please Follow Up With: Will need home health physical therapy set up Please Follow Up With: Bernardo Beth PA-C When: 07/19/18 @ 8:45 am
[2018-07-07] MEDS: Acetaminophen 500 MG Tablet 1000 MG PO (06:48)
[2018-07-07] MEDS: amLODIPine 10 MG Tablet PO (09:07)
[2018-07-07] MEDS: Meloxicam 7.5 MG Tablet PO (09:07)
[2018-07-07] MEDS: Aspirin 81 MG TAB.CHEW PO (09:07)
[2018-07-07] MEDS: Famotidine 20 MG Tablet PO (09:08)
[2018-07-07 09:10] VITALS: BP 137/72; PULSE 102; RESP 18; TEMP 36.6; O2SAT 99
[2018-07-07] MEDS: oxyCODONE 5 MG Tablet PO (09:13)
--- OUTSIDE RECORDS SUMMARY | 2018-10-06 07:21 | XMS RPT_ITS ---
:1965 Author Organization OHIP Support Name Relationship Address Phone JMSM Unavailable [address] + [place] [address] ELIESER, MISTY Unavailable Unavailable + JMSM Unavailable [address] + [place] [address] ELIESER, MISTY Unavailable . + ., . . JMSM Unavailable [address] + [place] [address] ELIESER, MISTY Unavailable . + ., . . JMSM Unavailable [address] + [place] [address] ELIESER, MISTY Unavailable . + ., [place] . JMSM Unavailable [address] + [place] [address] MON, MISTY Unavailable Unavailable + JMSM Unavailable [address] + [place] [address] ELIESER, MISTY Unavailable Unavailable + JMSM Unavailable [address] + [place] [address] JOHN ROLON Unavailable [address] + [place] [address] JMSM Unavailable [address] + [place] [address] JOHN ROLON Unavailable [address] + [place] [address] NONE PER PT Unavailable Unavailable + NONE PER PT Unavailable Unavailable + JMSM Unavailable [address] + [place] [address] JOHN ROLON Unavailable [address] + [place] [address] JMSM Unavailable [address] + [place] [address] STEVEN ROLONA Unavailable [address] + [place] [address] JMSM Unavailable [address] + [place] [address] STEVEN ROLONA Unavailable [address] + [place] [address] JMSM Unavailable [address] + [place] [address] STEVEN ORLONA Unavailable [address] + [place] [address] JMSM Unavailable [address] + [place] [address] JOHN ROLON Unavailable Unavailable + [place] [address] JMSM Unavailable [address] + [place] [address] Care Team Providers Name Role Phone KJ DRAPER DO Attending Unavailable BROWN, CHINO Primary Care Unavailable Brown, Chino Attending Unavailable Brown, Chino Referring Unavailable Brown, Chino Attending Unavailable Brown, Chino Attending Unavailable Brown, Chino Referring Unavailable Brown, Chino Primary Care Unavailable WilsonCaritoIzzy Attending Unavailable Brown, Chino Referring Unavailable Brown, Chino Primary Care Unavailable Wilson, Izzy Attending Unavailable Wilson, Izzy Referring Unavailable Brown, Chino Primary Care Unavailable Wilson, Izzy Attending Unavailable Wilson, Izzy Referring Unavailable Brown, Chino Primary Care Unavailable Tiffany Joseph Attending Unavailable Brown, Chino Primary Care Unavailable Marielos Sandoval Attending Unavailable Brown, Chino Attending Unavailable Brown, Chino Referring Unavailable Brown, Chino Primary Care Unavailable Thad Jimenez Admitting Unavailable Thad Jimenez Attending Unavailable Thad Jimenez Referring Unavailable Brown, Chino Primary Care Unavailable Bernardo Beth PA-C Attending Unavailable Bernardo Beth PA-C Referring Unavailable Brown, Chino Primary Care Unavailable Gino Iqbal Attending Unavailable Thad Jimenez Referring Unavailable Javed Goddard MUSIC HISTORIAN-C Attending Unavailable Chino Calabrese Referring Unavailable Thad Jimenez Admitting Unavailable Ruben Jimenezen Attending Unavailable Ruben Jimenezen Referring Unavailable Chino Calabrese Primary Care Unavailable PROBLEMS PROBLEMS DATE TYPE CONDITION / CODE ATTENDING STATUS SOURCE 07/07/2018 Unknown Z96.641 - Presence of Thad Jimenez Active [place] right artificial hip [facility] joint / Hospital Z96.641(ICD-10) Repository 07/12/2018 Unknown Z96.642 - Presence of Eshenaur, Active [place] left artificial hip Bernardo KING [facility] joint / Hospital Z96.642(ICD-10) Repository 07/12/2018 Unknown Z74.1 - Need for Eshenaur, Active [place] assistance with Bernardo KING [facility] personal care / Hospital Z74.1(ICD-10) Repository 05/08/2018 Unknown R94.31 - Abnormal Rasheed, Gino Active [facility] electrocardiogram Community [ECG] [EKG] / Hospital R94.31(ICD-10) Repository 05/08/2018 Unknown I10 - Essential Rasheed, [place] Active [facility] (primary) hypertension Community / I10(ICD-10) Hospital Repository 01/30/2018 Unknown M54.12 - Izzy Wilson Active [place] Radiculopathy, [facility] cervical region / Hospital M54.12(ICD-10) Repository 01/24/2018 Unknown M54.5 - Low back pain Izzy Wilson Active [place] / M54.5(ICD-10) [facility] Hospital Repository 11/18/2017 Unknown M48.062 - Spinal Chino Calabrese Active [place] stenosis, lumbar [facility] region with neurogenic Hospital claudication / Repository M48.062(ICD-10) PROCEDURES PROCEDURES No Procedure Records FoundRESULTS RESULTS DISCHARGE INSTRUCTION Observed: 07/07/2018 Status: F Source: [place] 6:26 AM [facility] REPOSITORY [facility] Medical Records Department [address] [place] [address] Instructions for Home/Discharge Instructions 07/07/18623 MR#: [id number] Acct: [id number] Name: DENNIS LUIS Rep #: [id number] : 1965 53 From: Bernardo Beth PA-C PCP: Chino Calabrese DO Status: ADM IN Discharge Diet: No Restrictions Discharge Activity: May Not Drive - while taking narcotic pain medications. May shower in (days): 1 - Turned dressing away from water Ice area for (Minutes): 20 - Every 1-2 hours while awake Weight Bearing Status: Weight bearing as tolerated Elevate: Operative Extremity Additional Activity Instructions:: Wear elastic stockings for 2 weeks. DO NOT use alcohol with narcotic pain medication. DO NOT make important decisions while taking narcotic medication. If you have problems with taking your medication (rash, itching, nausea, etc.) call the office at once. Call your doctor if your incision/area has: Increased Pain/ Swelling, Increased Redness, Foul Smelling Discharge Call your doctor if you observe: Fever of 101 or Higher Remove Dressing in (days):: 3 - Okay to remove on July 10, 2018 Additional Instructions: Follow [facility] orthopedics postop instructions Allergies/Adverse Reactions: Allergies No Known Allergies Allergy (Verified 06/23/18 14:35) Medications to take at Discharge Atorvastatin Calcium 10 mg PO DAILY 04/07/18 Azilsartan Medoxomil [Edarbi] 80 mg PO QDAY 04/07/18 Fluticasone Propionate 2 spray INTRANASAL QDAY PRN 04/07/18 amlodipine 10 mg tablet 10 mg PO QDAY #30 tab 06/06/18 trazodone 50 mg tablet 50 mg PO DAILY PRN #30 tab 06/06/18 Acetaminophen [Tylenol] 1,000 mg PO Q8 #90 tablet 07/07/18 Aspirin [Aspirin, Baby] 81 mg PO BIDCM #60 tab.chew 07/07/18 Famotidine [Pepcid] 20 mg PO DAILY #30 tablet 07/07/18 Meloxicam [Mobic] 7.5 mg PO BID #60 tablet 07/07/18 Oxycodone [Oxyir] 5 - 10 mg PO Q4H PRN PRN 5 Days #60 tablet 07/07/18 Senna/Docusate Sodium [Senokot-S] 2 tablet PO BID tablet 07/07/18 The following prescriptions were given: Oxycodone [Oxyir] 5 - 10 mg PO Q4H PRN PRN 5 Days #60 tablet PRN Reason: Mod-Severe Pain (-04/26) Acetaminophen [Tylenol] 1,000 mg PO Q8 #90 tablet Famotidine [Pepcid] 20 mg PO DAILY #30 tablet Aspirin [Aspirin, Baby] 81 mg PO BIDCM #60 tab.chew Meloxicam [Mobic] 7.5 mg PO BID #60 tablet Primary Care Physician: Chino Calabrese DO [Primary Care Provider] - Test Results: Test results from this visit will be discussed in further detail at your follow-up appointment, if applicable. Please Follow Up With: Will need home health physical therapy set up Please Follow Up With: Bernardo Beth PA-C When: 07/19/18 @ 8:45 am 07/07/18 0626 <Electronically signed by Bernardo Beth PA-C> Date Bernardo Beth PA-C CC: Chino Calabrese DO CBC-COMPLETE BLOOD CNT Collected: 07/07/2018 Status: F Source: [place] NO DIFF 5:22 AM [facility] REPOSITORY TYPE CODE TESTS RESULT OUT OF RANGE REFERENCE UNITS LAB L100.1000 4.4-11.0 K/mm3 Normal WBC 7.1 LAB L100.1200 4.6-6.2 M/mm3 Low RBC 4.29 LAB L100.1300 13.0-16.5 g/dl Low HGB 9.9 LAB L100.1400 40-54 % Low HCT 30.1 LAB L100.1500 80-94 fL Low MCV 70.2 LAB L100.1600 27.0-32.0 pg Low MCH 23.1 LAB L100.1700 32-36 g/gl Normal MCHC 32.9 LAB L100.1810 11.6-14.6 % High RDW CV 15.2 LAB L100.1820 35.1-43.9 fl Normal RDW SD 37.9 LAB L100.1900 150-450 K/mm3 Normal PLT 259 LAB L100.2000 6.2-12.0 fl Normal MPV 10.7 Performed By: #### L100.0500 #### [facility] [address] [place], [place], [id number] CBC-COMPLETE BLOOD CNT Collected: 07/06/2018 Status: F Source: [place] NO DIFF 5:36 AM [facility] REPOSITORY TYPE CODE TESTS RESULT OUT OF RANGE REFERENCE UNITS LAB L100.1000 4.4-11.0 K/mm3 Normal WBC 10.5 LAB L100.1200 4.6-6.2 M/mm3 Low RBC 4.43 LAB L100.1300 13.0-16.5 g/dl Low HGB 10.3 LAB L100.1400 40-54 % Low HCT 31.1 LAB L100.1500 80-94 fL Low MCV 70.2 LAB L100.1600 27.0-32.0 pg Low MCH 23.3 LAB L100.1700 32-36 g/gl Normal MCHC 33.1 LAB L100.1810 11.6-14.6 % High RDW CV 15.3 LAB L100.1820 35.1-43.9 fl Normal RDW SD 38.9 LAB L100.1900 150-450 K/mm3 Normal PLT 275 LAB L100.2000 6.2-12.0 fl Normal MPV 10.2 Performed By: #### L100.0500 #### [facility] [address] [place], [address] BASIC METABOLIC Collected: 07/06/2018 Status: F Source: [place] PROFILE (BMP) 5:36 AM [facility] REPOSITORY TYPE CODE TESTS RESULT OUT OF RANGE REFERENCE UNITS LAB L501.0100 74-106 mg/dL High GLU 125 Result Comment: Fasting Glucose result from 100 to 125 mg/dL suggests IMPAIRED HOMEOSTASIS per A.D.A. criteria. Please note revised GLUCOSE reference range effective 2017. LAB L501.1000 7-18 mg/dL Normal BUN 11 LAB L501.1100 0.70-1.30 mg/dL Normal CREAT,SERUM 0.93 Result Comment: The validity of the calculated GFR AND GFRAA in patients over 70 years has not been determined. Clinical correlation is essential. LAB L501.1110 >60 mL/min Normal EST GFR 90 Result Comment: Non- GFR Calc LAB L501.1115 >60 mL/min Normal EST GFR - AA 109 Result Comment: GFR Calc LAB L501.1255 ml/min Normal Estimated CRCL 76.03 LAB L501.1300 10-20 RATIO Normal BUN/CRE 11.8 LAB L501.2200 8.5-10 mg/dL Normal .1 CA 8.6 LAB L501.5300 136-14 mmol/L Normal 5 NA 140 LAB L501.5600 3.5-5. mmol/L Normal 1 K 3.7 LAB L501.5900 98-107 mmol/L Normal CL 103 LAB L501.6100 21.0-3 mmol/L Normal 2.0 CO2 29.0 LAB L501.6200 5-15 Normal GAP 8 Performed By: #### L500.2500 #### [facility] [address] [facility] [facility] [place], [address] OPERATIVE REPORT Observed: 07/05/2018 Status: F Source: [place] 10:20 AM [facility] REPOSITORY [facility] Medical Records Department [address] [place] [address] Operative Report 07/05/18 0827 MR#: [id number] Acct: [id number] Name: DENNIS LUIS Rep #: [id number] : 1965 53 From: Thad Jimenez MD PCP: Chino Calabrese DO Status: ADM IN Y Location: [facility] [place] KS170-0 Report of Operation Date of Procedure: 07/05/18 Pre-Operative Diagnosis: Right hip primary osteoarthritis Post-Operative Diagnosis: Right hip primary osteoarthritis Surgery/Procedure Performed:: Left Direct Anterior GRZEGORZ Description of Surgical Findings:: Stable hip with equal leg lengths semiconductor equipment technician: Ute Arguello Type of Anesthesia:: General Anesthesiologist: Braden Foster Special Medications: 2 g Ancef, 1 g TXA at incision, 1 g TXA closure, 10 mg Decadron, joint cocktail (5 mg Duramorph, 30 mL of 0.5% Ropivicaine, 1000 units of epinephrine, 30 mg of Toradol) Specimen's removed: Bony cuts Estimated Blood Loss (mL): 150 Fluids Replaced: 1200 ml Description of Procedure: Components used: 1. Accolade 2 Cinebar femoral stem size 4 127 2. Alexa trident acetabular shell size 54 mm 3. Alexa X3 polyethylene neutral 4. Alexa Biolox delta 36mm, 0mm femoral head Brief history operative indications: 53 yo M who failed conservative measures for their hip osteoarthritis. X-rays were consistent with osteoarthritis including joint space narrowing, osteophyte formation and subchondral cysts. Total hip replacement was discussed with the patient with risks and benefits including but not limited to blood loss, DVTs, PEs, neurovascular damage, dislocation, general risks of anesthesia including loss of life. Patient demonstrated an understanding medical clearance is obtained the patient was consented for surgery. Procedure: On the date of procedure the patient's R hip was marked in the preoperative area. Patient was then taken back to the operating room where anesthesia assumed control of the C-spine and airway and administered anesthetic. Patient was transferred to the operating table and placed in the supine position. The hips were placed at the break of the bed and a sacral bump was placed. The R lower extremity was then prepped out in a sterile fashion using chlorhexidine while the surgeon scrubbed. The PA was vital in the positioning of the patient. Upon reentering the room the R lower extremity was draped in the standard orthopedic fashion and the incision was marked. A timeout was called and everyone agreed upon the side, the site, the procedure be performed, antibody given, and patient's identity. At this time incision was made through skin, subcutaneous tissue, and fat down to fascia. The fascia was then incised and the TFL was retracted laterally. A retractor was placed on the lateral border of the femoral neck. Attention was directed to the inferior portion of the approach and all crossing vessels were identified and appropriately coagulated. A retractor was then placed on the medial portion of the femoral neck. The anterior capsule was then cleared of all soft tissue and then H shaped capsulotomy was made. The retractors were then placed inside the capsule. The femoral neck was identified and a cleanup cut was made. At this time a power corkscrew was used to remove the femoral head. Attention was then turned toward the acetabulum where the soft tissues were appropriately retracted and the acetabulum was sequentially reamed to 54 mm. A 54 mm cup was then selected and impacted into place. Acetabular liner was impacted into place and locking mechanism was verified. The position of the acetabular cup was then verified under live fluoroscopy. Attention was then turned to the femur. Soft tissue releases on the medial and lateral femoral neck were appropriately done, the leg was externally rotated and lateralized. A Meraz retractor was placed medially and proximally to the greater trochanter this allowed appropriate visualization and exposure of the femoral canal. Rongeour was then used to remove excess lateral bone. A canal finder and entry broach were used to open the proximal canal. Once we verified we were down the femoral canal we subsequently broached up to a size 4 femur. The appropriate neck was placed in the previously selected head was trialed with a 0 mm neck. Traction was pulled and the hip was reduced with internal rotation. Once it was appropriately reduced and stability was checked. There was minimal shuck, equal leg lengths and appropriate stability with hyperextension and external rotation as well as with 90 flexion and internal rotation. Fluoroscopy was then also used to verify the position of the components and leg lengths using the contralateral side for comparison. The trial components were then dislocated the proximal femur was again exposed and the components were removed from the wound. The final components were verified and opened. The wound was copiously irrigated out with normal saline. The acetabulum was checked for any residual debris. The final components were placed and impacted. Traction and internal rotation were again used to reduce the hip. After adequate reduction the hip remained stable with appropriate leg lengths. The final components were once again checked with live fluoroscopy and were found to be satisfactory. The wound was then copiously irrigated with normal saline once more, and hemostasis was obtained. Closure was then done using #1 Vicryl runner to close the fascia. A 2-0 vicryl interuppted sutures were used to close the subcutaneous skin. A 3-0 Monocryl and Steri-Strips were used for final skin closure. A Silverlon dressing was placed. Patient was awakened by anesthesia and transferred to the [facility]. Patient was then transferred to the PACU for recovery. Postoperative plan: Patient will get 24 hours postop antibiotics. Patient will get in-house physical therapy and will be weight-bear as tolerated. Patient will follow up in office in 2 weeks for a wound check and x-rays. Grafts/Implants Used: Accolade 2, Trident 2 alexa - Complications none - Admit VTE Documentation VTE Present on Admission: No VTE Mechan Device Prophylaxis: SCD's, Thigh High FRANSISCO Hose VTE Pharm Prophylaxis ordered?: Yes 07/05/18 1020 <Electronically signed by Thad Jimenez MD> Date Thad Jimenez MD CC: Chino Calabrese DO; Thad Jimenez MD Signed HIP MIN 2 VIEWS Observed: 07/05/2018 Status: F Source: [place] (PORTABLE) 7:07 AM [facility] REPOSITORY [facility] Imaging Services [address] [place] [address] Hip Min 2 Views (Portable) MR#: [id number] Acct: [id number] Name: DENNIS LUIS Rep #: [id number] : 1965 M 53 From: Guevara Ramírez MD PCP: Chino Calabrese DO Status: ADM IN Study: Hip Min 2 Views (Portable) Date of Exam: 07/05/18 Exam# [id number] Ordering Dr: Thad Jimenez MD STUDY: X-RAY - RIGHT HIP REASON FOR EXAM: Male, 53 years old. Status post right total hip replacement. TECHNIQUE: 2 views of the hip. COMPARISON: Comparison is made with prior examination done earlier today. FINDINGS: The patient is status post right total hip replacement. There is normal alignment. Postoperative soft tissue changes. RAD/Hip Min 2 Views (Portable) IMPRESSION: Status post right total hip replacement. There is good alignment. Electronically Signed: Guevara Ramírez MD at 10:19 EST Tel [phone], Service support , CC: Chino Calabrese DO; Thad Jimenez MD Workplace Trainer And Assessor: Signed PT D/C SUMMARY (1) Observed: 07/05/2018 Status: F Source: [place] 7:00 AM [facility] REPOSITORY [facility] [place] [address] Fax REHABILITATION SERVICES DISCHARGE SUMMARY MR#: [id number] Acct: [id number] Name: DENNIS LUIS Rep #: [id number] : 1965 53 From: Nader HALLT, OCS, CSCS Referring Dr.: Bernardo IVAN Status: REG RCR Insurance: [employer] INSURANCE HP - PT D/C Summary It has been my pleasure to treat DENNIS LUIS under orders from MARZENA Alegria, for the diagnosis of L Hip OA s/p GRZEGORZ for a total of 14 visit(s). Discharge Date: 07/03/18 Please see the following information for a summary of their discharge status. - Subjective Subjective: Will have R hip replaced in two days. L one gets stiff but no pain. Been back to work for 15 days. Picking up 50# bag without difficulty but walking with them hurts R side. Sleep is normal. On pain meds for R hip. - Pain LEFT- SURGICAL Pain Intensity (Out of 10): 0 RIGHT HIP- NON SURGICAL Pain Intensity (Out of 10): 8 - Overall Improvement % Improvement: 80 - Objective Objective/Function: ROM L hip 100 flexion and 25 abd. Extension to 8 degrees. Walks well with some R antalgia minimally steps are reciprocal without pain. strength L hip 4+ hip ext, 4 abd and 5 flexion. Doing well overall. Tightness in gluts B is most noticeable limiting B hip flexion. - Goals Goal 1:: Walk without AD community without gait deviations Goal Progress: Goal Met Goal 2:: Patient ready to return to work with L hip Goal Progress: Goal Met Goal 3:: Steps reciprocally without rail Goal Progress: Goal Met Goal 4:: Pt feel 90% back to normal Goal Progress: Progressing - Plan Plan: D/C L GRZEGORZ chart. Will open new right chart when ordered. - D/C Information Discharge Comments: Pt to have R GRZEGORZ on Tuesday in two days and will return when ordered for rehab. If there are questions or concerns regarding this patient's physical therapy, please feel free to call me at [phone]. Thank you for the referral of this patient. Sincerely, Nader Roy DPT, OCS, CSCS <Electronically signed by Nader Roy DPT, OCS, CSCS> 07/05/18 0700 CC: Chino Calabrese DO; Bernardo IVAN EBG Signed HIP 1 VIEW WITH Observed: 07/05/2018 Status: F Source: [place] PELVIS 2:59 AM [facility] REPOSITORY [facility] Imaging Services [address] [place] [address] Hip 1 view with Pelvis MR#: [id number] Acct: [id number] Name: DENNIS LUIS [place] Rep #: [id number] : 1965 M 53 From: Guevara Ramírez MD PCP: Chino Calabrese DO Status: ADM IN Study: Hip 1 view with Pelvis Date of Exam: 07/05/18 Exam# [id number] Ordering Dr: Thad Jimenez MD STUDY: X-RAY - RIGHT HIP REASON FOR EXAM: Male, 53 years old. Right anterior total hip replacement. TECHNIQUE: 2 views of the hip. COMPARISON: None. FINDINGS: Intraoperative imaging provided for right anterior total hip replacement. There is good alignment. RAD/Hip 1 view with Pelvis IMPRESSION: Intraoperative imaging provided for right anterior total hip replacement. Electronically Signed: Guevara Ramírez MD at 10:17 EST Tel [phone], Service support , CC: Chino Calabrese DO; Thad Jimenez MD Workplace Trainer And Assessor: Signed INTERNAL MEDICINE Observed: 06/29/2018 Status: F Source: [place] OFFICE VISIT 2:24 PM [facility] REPOSITORY [facility] [address] [place] [address] [place] [address] OFFICE VISIT Date of Service: 06/29/18 MR#: [id number] Acct: [id number] Name: DENNIS LUIS Rep #: [id number] : 1965 Provider: Chino Calabrese DO Age/Sex: 53/M Location: [facility] Status: Signed Intake Vital Signs06/29/18 Body Mass Index (BMI) 32.0 Intake Visit Reasons: FU BP Chief Complaint: f/u BP Is patient in pain?: Yes (right hip) Allergies No Known Allergies Allergy (Verified 06/23/18 14:35) Medications Atorvastatin Calcium 10 mg PO DAILY 04/07/18 [History Confirmed 06/23/18] Azilsartan Medoxomil [Edarbi] 80 mg PO QDAY 04/07/18 [History Confirmed 06/23/18] Fluticasone Propionate 2 spray INTRANASAL QDAY PRN 04/07/18 [History Confirmed 06/23/18] amlodipine 10 mg tablet 10 mg PO QDAY #30 tab 06/06/18 [Rx Confirmed 06/23/18] trazodone 50 mg tablet 50 mg PO DAILY PRN #30 tab 06/06/18 [Rx Confirmed 06/23/18] Aspirin [Aspirin, Baby] 81 mg PO DAILY 06/23/18 [History Confirmed 06/23/18] [facility] Medical History High cholesterol (Chronic) High blood pressure (Chronic) Surgical History History of cervical spinal surgery (Acute) History of hernia repair (Acute) History of total left hip replacement (Acute) Family History Mother Cancer Sister Diabetes Brother Diabetes Social History Smoking Status: Former smoker alcohol intake: current alcohol intake frequency: holidays/special occasions only Alcohol type: beer substance use type: does not use what type of physical activity do you participate in: none HPI HPI Chief Complaint: f/u BP Details: DENNIS LUIS, is a 53 M who presents to the office today for follow-up on his blood pressure. He is having a right hip arthroplasty in about 10 days and wanted to be certain his blood pressure was well controlled. ROS Const Constitutional: No weight change, body ache, chills, fatigue, sleep problems, fever(s), change in appetite, snoring, weakness, frequent falls, headache(s) or excessive sweating Eyes Eyes: No change in vision, eye pain, light sensitivity or blurry vision ENT ENT: No headache(s), abnormal hearing, ear pain, tinnitus, nasal congestion, sore throat or neck pain Resp Respiratory: Positive for shortness of breath sob: SOB with activity; no snoring, cough or wheezing Cardio Cardiology: No excessive sweating, chest pain at rest, chest pain with exertion, shortness of breath, dyspnea on exertion, palpitations, orthopnea or lightheadedness Gastro GI: No abdominal pain, change in bowel habits, constipation, diarrhea, vomiting, nausea/dyspepsia or cramping Genitourinary Male: No painful urination, urinary incontinence, urinary frequency, urinary urgency, blood in urine, testicle pain or other Musc Musculoskeletal: No neck pain, abnormal walking, joint pain, back pain, limited range of motion, numbness or tingling Skin Skin: No redness, dry skin, itching, lesions, wounds or rash Neuro Neurology: No weakness, frequent falls, headache(s), abnormal hearing, abnormal walking, numbness, tingling, abnormal speech, dizziness or memory loss Psych Psychiatric: No change in appetite, No memory loss, No anxiety, No depression, No Thoughts of harming yourself/Others Endo Endocrine: No fatigue, excessive sweating, cold intolerance, increased thirst/drinking, heat intolerance, flushing or increased hunger Aller/Imm Allergy/Immunologic: No wheezing, itchy eyes, hives or seasonal allergy symptoms Matt/Lymp Hematologic/Lymphatic: No easy bleeding, easy bruising or enlarged lymph nodes Exam Const General: cooperative, comfortable, no acute distress Nutritional Appearance: average body habitus, well nourished Orientation: alert, oriented x3 Limitations: mental status not altered [facility] Head: normal to inspection Ears: hearing grossly normal bilaterally Nose: external nose normal Eyes General: appearance normal, both eyes and all related structures Resp Effort AND Inspection: normal respiratory effort, able to speak in complete sentences, normal respiratory pattern, symmetric chest movement, no audible wheezes, no cough Auscultation: Bilateral: Clear to Auscultation Cardio Palpation: normal PMI Rate: regular rate Heart Sounds: S1 normal, S2 normal, normal S1 and S2, no click, no gallops, no murmurs, no rubs GI Inspection: normal to inspection Auscultation: normal bowel sounds, no hyperactive bowel sounds, no hypoactive bowel sounds Palpation: soft, no hepatosplenomegaly Musc Musculoskeletal: Yes decreased ROM (right hip) Skin General: no rashes or lesions noted, elasticity normal, turgor normal Lesions: no lesions Rashes: no rashes Neuro General: alert, awake, oriented x3, CN's II-XI intact bilaterally Speech: speech normal Gait: wide-based Motor: muscle tone normal throughout Extrem General: normal to inspection, normal gait, no edema, no pedal edema Psych Appearance: grossly normal Mental Status: mental status grossly normal Affect: normal affect Attitude: cooperative Thought Process: normal Assessment AND Plan Problems 1. High cholesterol E78.00 2. Essential hypertension I10 3. Primary osteoarthritis of right hip M16.11 Plan This patient was here for blood pressure follow-up. He had been placed on amlodipine for his hypertension and when checked at this visit his readings were 134/78 and 136/80 both times they were checked one in the right arm and one on the left arm they were well under control. He is undergoing another arthroplasty this time on the right hip in a couple of weeks and I told him that his blood pressure was well controlled for surgery he should follow-up with us on an as-needed basis. Coding Level of Care Code Off vis,est,level 3 Diagnoses High cholesterol E78.00 Essential hypertension I10 Hypertension type: essential hypertension Primary osteoarthritis of right hip M16.11 Osteoarthritis type: primary 06/29/18 1424 <Electronically signed by Chino Calabrese DO> Date Chino Calabrese DO Cosigner Signature: Date (if applicable) CC: BASIC METABOLIC Collected: 06/23/2018 Status: F Source: [place] PROFILE (BMP) 3:00 PM [facility] REPOSITORY TYPE CODE TESTS RESULT OUT OF RANGE REFERENCE UNITS LAB L501.0100 74-106 mg/dL Normal GLU 91 Result Comment: Please note revised GLUCOSE reference range effective 2017. LAB L501.1000 7-18 mg/dL High BUN 21 LAB L501.1100 0.70-1.30 mg/dL Normal CREAT,SERUM 0.73 Result Comment: The validity of the calculated GFR AND GFRAA in patients over 70 years has not been determined. Clinical correlation is essential. LAB L501.1110 >60 mL/min Normal EST GFR 119 Result Comment: Non- GFR Calc LAB L501.1115 >60 mL/min Normal EST GFR - AA 144 Result Comment: GFR Calc LAB L501.1255 ml/min Normal Estimated CRCL 96.86 LAB L501.1300 10-20 RATIO High BUN/CRE 28.8 LAB L501.2200 8.5-10 mg/dL Normal .1 CA 9.2 LAB L501.5300 136-14 mmol/L Normal 5 NA 136 LAB L501.5600 3.5-5. mmol/L Normal 1 K 3.8 LAB L501.5900 98-107 mmol/L Normal CL 101 LAB L501.6100 21.0-3 mmol/L Normal 2.0 CO2 23.0 LAB L501.6200 5-15 Normal GAP 12 Performed By: #### L500.2500 #### [facility] [address] [place], [place], [id number] CBC W/DIFF, AUTOMATED Collected: 06/23/2018 Status: F Source: [place] 3:00 PM [facility] REPOSITORY TYPE CODE TESTS RESULT OUT OF RANGE REFERENCE UNITS LAB L100.1000 4.4-11.0 K/mm3 Normal WBC 6.1 LAB L100.1200 4.6-6.2 M/mm3 Normal RBC 5.34 LAB L100.1300 13.0-16.5 g/dl Low HGB 12.3 LAB L100.1400 40-54 % Low HCT 37.6 LAB L100.1500 80-94 fL Low MCV 70.4 LAB L100.1600 27.0-32.0 pg Low MCH 23.0 LAB L100.1700 32-36 g/gl Normal MCHC 32.7 LAB L100.1810 11.6-14.6 % High RDW CV 15.8 LAB L100.1820 35.1-43.9 fl Normal RDW SD 40.7 LAB L100.1900 150-450 K/mm3 Normal PLT 315 LAB L100.2000 6.2-12.0 fl Normal MPV 9.4 LAB L100.2100 47-70 % Normal NEUT% 68.8 LAB L100.2200 19-41 % Normal LY% 22.6 LAB L100.2300 0-10 % Normal MONO% 6.6 LAB L100.2400 0-5 % Normal EO% 1.2 LAB L100.2500 0-1 % Normal BASO% 0.8 LAB L100.2550 0.0-0.9 % Normal IM GRAN % 0.000 Result Comment: IG% - Immature Granulocytes (promyelocytes, myelocytes and metamyelocytes) > 1% indicates that a LEFT SHIFT is Present. LAB L100.2620 2.0-7.7 X10 3/uL Normal Absolute Neut 4.2 LAB L100.2720 0.83-4.51 X10 3/ul Normal Absolute Lymph 1.37 Performed By: #### L100.0100 #### [facility] [address] [facility] [address] Observed: 06/23/2018 Status: F Source: [place] MRSA/SAID SCREEN 3:00 PM [facility] REPOSITORY MRSA/SAID SCRN S. AUREUS S. aureus Negative MRSA MRSA Negative Performed By: #### M100.651 #### [facility] [address] INTERNAL MEDICINE Observed: 06/13/2018 Status: F Source: [place] OFFICE VISIT 10:21 AM [facility] REPOSITORY [facility] [address] [place] [address] [place] [address] OFFICE VISIT Date of Service: 06/06/18 MR#: [id number] Acct: [id number] Name: DENNIS LUIS Ina Rep #: [id number] : 1965 Provider: Javed Goddard NP Age/Sex: 53/M Location: [facility] Status: Signed Intake Vital Signs06/06/18 Height 5 ft 5 in 06/06/18 Weight: 185 lb 06/06/18 Body Mass Index (BMI) 30.7 06/06/18 Blood Pressure 170/94 H 06/06/18 Blood Pressure Location Lt brachial Intake Visit Reasons: Needs released back to work Chief Complaint: release back to work Is patient in pain?: No Allergies No Known Allergies Allergy (Verified 04/07/18 10:36) Medications Atorvastatin Calcium 10 mg PO DAILY 04/07/18 [History Confirmed 04/19/18] Azilsartan Medoxomil [Edarbi] 80 mg PO QDAY 04/07/18 [History Confirmed 04/19/18] Fluticasone Propionate 2 spray INTRANASAL QDAY PRN 04/07/18 [History Confirmed 04/19/18] Acetaminophen [Tylenol] 1,000 mg PO Q8 #90 tab 04/21/18 [Rx] Aspirin [Aspirin, Baby] 81 mg PO BIDCM #60 tab.chew 04/21/18 [Rx] Famotidine [Pepcid] 20 mg PO DAILY #30 tab 04/21/18 [Rx] Meloxicam [Mobic] 7.5 mg PO BID #30 tab 04/21/18 [Rx] amlodipine 10 mg tablet 10 mg PO QDAY #30 tab 06/06/18 [Rx Confirmed 06/06/18] blood pressure monitor kit See Dose Instructions .ROUTE .MEDSUPPLY #1 ea 06/06/18 [Rx Confirmed 06/06/18] trazodone 50 mg tablet 50 mg PO DAILY PRN #30 tab 06/06/18 [Rx Confirmed 06/06/18] PFS Medical History High cholesterol (Chronic) High blood pressure (Chronic) Surgical History History of cervical spinal surgery (Acute) History of hernia repair (Acute) History of total left hip replacement (Acute) Family History Mother Cancer Sister Diabetes Brother Diabetes Social History Smoking Status: Former smoker alcohol intake: current alcohol intake frequency: holidays/special occasions only Alcohol type: beer substance use type: does not use what type of physical activity do you participate in: none HPI HPI Chief Complaint: release back to work Details: DENNIS LUIS, is a 53 M who presents to the office today for release back to work. Patient has past medical history as listed above. On April 19 of this year patient had total left hip he was cleared to return to work by his surgeon Dr. Jimenez (per pt) and while visiting the employee health nurse he was noted to be hypertensive. His workplace told him he could not return to work until his blood pressure is better controlled. Patient is unable to check his blood pressure at home because he does not have a blood pressure cuff. But he denies any signs or symptoms of hypertension. He does mention that he has trouble falling asleep and staying asleep and is wondering if there is a medication he can try for insomnia. He denies any excessive caffeine intake. He also states he drinks 3-4 beers a day. His blood pressure is elevated today in the office at 170/94, he does state that he has been consistent and adhering to his medication regimen for his antihypertensives. The patient otherwise denies any fever, chills, nausea, vomiting, shortness of breath, chest pain or pressure, palpitations, orthopnea, lower extremity edema, syncope or presyncopal episodes. ROS Const Constitutional: No weight change, body ache, chills, fatigue, sleep problems, fever(s), change in appetite, snoring, weakness, frequent falls, headache(s) or excessive sweating Eyes Eyes: No change in vision, eye pain, light sensitivity or blurry vision ENT ENT: No headache(s), abnormal hearing, ear pain, tinnitus, nasal congestion, sore throat or neck pain Resp Respiratory: No snoring, cough, shortness of breath or wheezing Cardio Cardiology: No excessive sweating, chest pain at rest, chest pain with exertion, shortness of breath, dyspnea on exertion, palpitations, orthopnea or lightheadedness Gastro GI: No abdominal pain, change in bowel habits, constipation, diarrhea, vomiting, nausea/dyspepsia or cramping Genitourinary Male: No painful urination, urinary incontinence, urinary frequency, urinary urgency, blood in urine, testicle pain or other Musc Musculoskeletal: No neck pain, abnormal walking, joint pain, back pain, limited range of motion, numbness, tingling or muscle weakness Skin Skin: No redness, dry skin, itching, lesions, wounds or rash Neuro Neurology: No weakness, frequent falls, headache(s), abnormal hearing, abnormal walking, numbness, tingling, abnormal speech, dizziness or memory loss Psych Psychiatric: No change in appetite, No memory loss, No anxiety, No depression, No Thoughts of harming yourself/Others Endo Endocrine: No fatigue, excessive sweating, cold intolerance, increased thirst/drinking, heat intolerance, flushing or increased hunger Aller/Imm Allergy/Immunologic: No wheezing, itchy eyes, hives or seasonal allergy symptoms Matt/Lymp Hematologic/Lymphatic: No easy bleeding, easy bruising or enlarged lymph nodes Exam Const General: cooperative, comfortable, no acute distress Nutritional Appearance: average body habitus, well nourished Orientation: alert, oriented x3 Limitations: mental status not altered [facility] Head: normal to inspection Ears: hearing grossly normal bilaterally Nose: external nose normal Eyes General: appearance normal, both eyes and all related structures Resp Effort AND Inspection: normal respiratory effort, able to speak in complete sentences, normal respiratory pattern, symmetric chest movement, no audible wheezes, no cough Auscultation: Bilateral: Clear to Auscultation Cardio Palpation: normal PMI Rate: regular rate Heart Sounds: S1 normal, S2 normal, normal S1 and S2, no click, no gallops, no murmurs, no rubs GI Inspection: normal to inspection Auscultation: normal bowel sounds, no hyperactive bowel sounds, no hypoactive bowel sounds Palpation: soft, no hepatosplenomegaly Musc Musculoskeletal: No joint tenderness, decreased ROM or muscle weakness Skin General: no rashes or lesions noted, elasticity normal, turgor normal Lesions: no lesions Rashes: no rashes Neuro General: alert, awake, oriented x3, CN's II-XI intact bilaterally Speech: speech normal Gait: normal gait Motor: muscle tone normal throughout Extrem General: normal to inspection, normal gait, no edema, no pedal edema Psych Appearance: grossly normal Mental Status: mental status grossly normal Affect: normal affect Attitude: cooperative Thought Process: normal Assessment AND Plan 1. HTN (hypertension) I10 Plan Hypertension: Blood pressure is suboptimal at this time. Will make changes to current medication regimen which include increasing amlodipine to 10 mg daily. Prescription given patient to obtain at home blood pressure cuff. Patient encouraged to monitor blood pressure at home and call Tuesday with readings. If still suboptimal, will consider the addition of hydrochlorothiazide. Discussed risk factor reduction and lifestyle modifications. Discussed dietary changes that should be considered which include reducing the amount of sodium intake. WIll clear for work when BP is under better control 2. Insomnia G47.00 Plan Patient given trazodone to take as needed for insomnia. Patient encouraged not to drink while taking medication. Patient educated on medication side effects. Patient to follow-up in 4-6 weeks or sooner if needed. 3. Alcohol abuse F10.10 Plan Patient encouraged to limit alcohol intake. He does not note that he has a drinking problem at this time however. Plan Detail Other Medications New: blood pressure monitor kit (Blood Pressure KiCheck blood pressure daily for hypertension I t) 10 1 ea 0RF Changed: Coding Level of Care Code Off vis,est,level 3 Diagnoses HTN (hypertension) I10 Insomnia G47.00 Alcohol abuse F10.10 06/13/18 1021 <Electronically signed by Javed RATLIFF> Date Javed RATLIFF Cosigner Signature: Date (if applicable) CC: RE-EVALUATION - PT (1) Observed: 06/12/2018 Status: F Source: [place] 6:51 AM [facility] REPOSITORY [facility] [address] [place] [address]. [address] [place], [place] [address] Fax REEVALUATION / MEDICARE RECERTIFICATION PHYSICAL THERAPY MR#: [id number] Acct: [id number] Name: DENNIS LUIS Rep #: [id number] : 1965 53 From: Nader Roy DPT, OCS, CSCS Referring Dr.: Bernardo IVAN Status: REG RCR Insurance: [employer] INSURANCE MARZENA Alegria, It has been my pleasure to treat DENNIS LUIS over the last 12 visits for L Hip OA s/p GRZEGORZ 04/19, anterior. Please see the progress note below for an update on the physical therapy plan of care! Subjective: Released Tuesday by Dr. DraperAlesha Rockwell doctor worried about blood pressure. Lifestyle makes his blood pressure high(drinking adn watching football). On new blood pressure meds and will contact doctor tomorrow. Hip is not a problem. R hip pain lately is problem and surgery scheduled for 07/08. L hip is not painful, just stiff in morning, loosens up after a while. Rolling at home helps. Not using cane at home anymore.Bridging helps at home. Objective/Function: weakness with flexion leg raise and tight anteriorly with prone knee flexion. Steps are reciprocal and no rail, R antalgia with walking. Exits chair without UE. Stiff exitting chair and has to take a minute to stand up straight. should be OK to return to work from the hip point of view but not perfectly comfortable. Plan Plan: 2x/week x4 weeks... Please strengthen L hip, R hip without increasing pain. Work on flexibility of R hip extension gently. Goals Goal 1:: Walk without AD community without gait deviations Goal Time Frame: 4-6 Weeks Goal Progress: R antalgia Goal 2:: Patient ready to return to work with L hip Goal Time Frame: 4-6 Weeks Goal Progress: Goal Met Goal 3:: Steps reciprocally without rail Goal Time Frame: 4-6 Weeks Goal Progress: Goal Met Goal 4:: Pt feel 90% back to normal Goal Time Frame: 4-6 Weeks Goal Progress: Progressing Anticipated Interventions Patient/Client Instruction: Educate patient on: Condition, Plan of Care For the Purpose of:: To improve muscle performance and motor function, To increase tolerance to activity/condition/position Therapeutic Exercise to Include: Strength training, Balance training, Gait and locomotor training, Passive ROM, Active ROM For the Purpose of:: To decrease pain, To increase ROM, To increase oxygenation perfusion, To improve muscle performance and motor function, To increase tolerance to activity/condition/position Manual Therapy Techniques to Include: Scar massage For the Purpose of:: To increase ROM Cryotherapy (ice pack, ice massage): Yes For the Purpose of:: To decrease swelling/inflammation Please do not hesitate to contact me at [phone] by phone or if you have questions or concerns regarding this new plan of care! Sincerely, Nader Roy, RAFAELT, OC <Electronically signed by Nader HALLT, OCS, CSCS> 06/12/18 0651 CC: Chino Calabrese DO; Bernardo IVAN EBG Signed For Medicare only, by signing this I certify the plan of care. Physicians Signature Date INITAL EVALUATION (1) Observed: 05/09/2018 Status: F Source: [facility] - PT 9:03 AM [facility] REPOSITORY [facility] [address] [place] [address] Fax REHABILITATION SERVICES INITIAL EVALUATION MR#: [id number] Acct: [id number] Name: DENNIS LUIS Rep #: [id number] : 1965 52 From: Nader Roy DPT, OCS, CSCS Referring Dr.: Bernardo IVAN Status: REG RCR Insurance: [employer] PAY INSURANCE Patient's Visit Information DENNIS LUIS is a 52 year old M referred to Physical Therapy by MARZENA Alegria with a diagnosis of L Hip OA s/p GRZEGORZ 04/19, anterior. Date of Evaluation: 05/08/18 Physical Therapist: Nader Roy DPT, OC - Visit Plan Frequency: 3x /Week Duration: 4-6 Weeks Plan: 3x/week for 4 weeks for. 1. scar massage. 2. strength and ROM L hip. 3. strength L hip. 4. gait progression away from AD and to tolerate work. 5. ice - Subjective Subjective: Apr 19 had anterior approach L GRZEGORZ. Hip was worn out. History includes cervical surgery from pinched nerves fusion. That took care of most of numbness in UE. That was 03/06/18. Then wanted L GRZEGORZ MAE and done on 04/19. Wants to have R one done in June. Not much pain in the last week. Had home PT for the last 3 weeks. Used cane for last three weeks. Had x rays last week and time for outpatient PT. Has never slept well, has worked nights for 24 years. Hip feels tight but otherwise not keeping him up. Wearing compression garmnets. Lives alone, doing everything on his own. Has 6 steps with rail whcih he can go up and down with R LE. Not driving, baron brought him. Has to be off pain meds and walk 150 feet without cane. 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 Hobbies: R hip surgery needs done and wants to be back. Ex AP , QS, gluts sets, HS. - Objective Ambulates with cane in R UE I with short R step and decreased stance time on L. Wide ADE but mod I. Without AD is slow and magnifies above deficitis but I 250 feet today. Steps are using R only and needs rail and cane, ascends either, L with diminished confidence on way down. Sits with weight through R hip. Transfers I with UE. Scarring is dry anteriorly with steristrips in place, Max scar tissue proximally around incision. Minimal tenderness. 0 degrees hip extension, 20 degrees L hip abd, 70 AROM flexion and 85 passive limited by patient hesitant. knee ext hesitant but full, flexion 115 L and 120 R. ankle AROM and strength full and 4+/5 B. Knee strength 4/5 L and 4+ R. Hip NT L and 4+ R. Sensation WNL to gross light touch in B LE. reflexes 2/3 B patell and achilles. Good balance in standing, lacks confidence. - Goals Goal 1:: Walk without AD community without gait deviations Goal Time Frame: 4-6 Weeks Goal 2:: Patient ready to return to work with L hip Goal Time Frame: 4-6 Weeks Goal 3:: Steps reciprocally without rail Goal Time Frame: 4-6 Weeks Goal 4:: Pt feel 90% back to normal Goal Time Frame: 4-6 Weeks - Rehabilitation Potential Physical Therapy Diagnosis: s/p L GRZEGORZ anterior approach Rehabilitation Potential: Good - Anticipated Interventions Patient/Client Instruction: Educate patient on: Condition, Plan of Care For the Purpose of:: To improve muscle performance and motor function, To increase tolerance to activity/condition/position Therapeutic Exercise to Include: Strength training, Balance training, Gait and locomotor training, Passive ROM, Active ROM For the Purpose of:: To decrease pain, To increase ROM, To increase oxygenation perfusion, To improve muscle performance and motor function, To increase tolerance to activity/condition/position Manual Therapy Techniques to Include: Scar massage For the Purpose of:: To increase ROM Cryotherapy (ice pack, ice massage): Yes For the Purpose of:: To decrease swelling/inflammation Thank you for the opportunity to evaluate your patient. For Medicare and Medicare HMO plans, please review the plan of care and approve it. It will need to be FAXED BACK to us at [phone] for Medicare purposes. Please let me know if there are questions or concerns regarding this plan of care. Physician Signature: Date: <Electronically signed by Nader Roy DPT, OCS, CSCS> 05/09/18 0903 CC: Chino Calabrese DO; Bernardo IVAN EBG Signed For Medicare only, by signing this I certify the plan of care. Physicians Signature Date DISCHARGE INSTRUCTION Observed: 04/21/2018 Status: F Source: [place] 7:11 AM [facility] REPOSITORY [facility] Medical Records Department [address] [place] [address] Instructions for Home/Discharge Instructions 04/21/18 0709 MR#: [id number] Acct: [id number] Name: DENNIS LUIS Rep #: [id number] : 1965 52 From: Bernardo Beth PA-C PCP: Chino Calabrese DO Status: ADM IN Discharge Diet: No Restrictions Discharge Activity: May Not Drive - while taking narcotic pain medications. May shower in (days): 1 - Turned dressing away from water Ice area for (Minutes): 20 - Every 1-2 hours while awake Weight Bearing Status: Weight bearing as tolerated Elevate: Operative Extremity Additional Activity Instructions:: Wear elastic stockings for 2 weeks. DO NOT use alcohol with narcotic pain medication. DO NOT make important decisions while taking narcotic medication. If you have problems with taking your medication (rash, itching, nausea, etc.) call the office at once. Call your doctor if your incision/area has: Increased Pain/ Swelling, Increased Redness, Foul Smelling Discharge Call your doctor if you observe: Fever of 101 or Higher Remove Dressing in (days):: 3 - Okay to remove on April 24, 2018 Additional Instructions: Follow [facility] postop instructions While taking meloxicam you should not take any other nonsteroidal anti-inflammatory. Allergies/Adverse Reactions: Allergies No Known Allergies Allergy (Verified 04/07/18 10:36) Medications to take at Discharge Amlodipine Besylate [Norvasc] 5 mg PO QDAY 04/07/18 Atorvastatin Calcium 10 mg PO DAILY 04/07/18 Azilsartan Medoxomil [Edarbi] 80 mg PO QDAY 04/07/18 Fluticasone Propionate 2 spray INTRANASAL QDAY PRN 04/07/18 Acetaminophen [Tylenol] 1,000 mg PO Q8 #90 tablet 04/21/18 Aspirin [Aspirin, Baby] 81 mg PO BIDCM #60 tab.chew 04/21/18 Famotidine [Pepcid] 20 mg PO DAILY #30 tablet 04/21/18 Meloxicam [Mobic] 7.5 mg PO BID #30 tablet 04/21/18 Oxycodone [Oxyir] 5 - 10 mg PO Q4H PRN PRN 6 Days #80 tablet 04/21/18 The following prescriptions were given: Oxycodone [Oxyir] 5 - 10 mg PO Q4H PRN PRN 6 Days #80 tablet PRN Reason: Mod-Severe Pain (4-04/26) Acetaminophen [Tylenol] 1,000 mg PO Q8 #90 tablet Famotidine [Pepcid] 20 mg PO DAILY #30 tablet Aspirin [Aspirin, Baby] 81 mg PO BIDCM #60 tab.chew Meloxicam [Mobic] 7.5 mg PO BID #30 tablet Primary Care Physician: Chino Calabrese DO [Primary Care Provider] - Test Results: Test results from this visit will be discussed in further detail at your follow-up appointment, if applicable. Please Follow Up With: Home health physical therapy When: will be set up by Case Management Please Follow Up With: Bernardo Beth PA-C When: 05/03/18 @ 11:00 am 04/21/18 0711 <Electronically signed by Bernardo Beth PA-C> Date Bernardo Beth PA-C CC: Chino Calabrese DO CBC-COMPLETE BLOOD CNT Collected: 04/21/2018 Status: F Source: [place] NO DIFF 5:30 AM [facility] REPOSITORY TYPE CODE TESTS RESULT OUT OF RANGE REFERENCE UNITS LAB L100.1000 4.4-11.0 K/mm3 Normal WBC 7.0 LAB L100.1200 4.6-6.2 M/mm3 Low RBC 4.57 LAB L100.1300 13.0-16.5 g/dl Low HGB 10.7 LAB L100.1400 40-54 % Low HCT 31.9 LAB L100.1500 80-94 fL Low MCV 69.8 LAB L100.1600 27.0-32.0 pg Low MCH 23.4 LAB L100.1700 32-36 g/gl Normal MCHC 33.5 LAB L100.1810 11.6-14.6 % High RDW CV 16.4 LAB L100.1820 35.1-43.9 fl Normal RDW SD 40.9 LAB L100.1900 150-450 K/mm3 Normal PLT 259 LAB L100.2000 6.2-12.0 fl Normal MPV 10.4 Performed By: #### L100.0500 #### [facility] [place], [address] CBC-COMPLETE BLOOD CNT Collected: 04/20/2018 Status: F Source: [place] NO DIFF 5:18 AM [facility] REPOSITORY TYPE CODE TESTS RESULT OUT OF RANGE REFERENCE UNITS LAB L100.1000 4.4-11.0 K/mm3 Normal WBC 9.4 LAB L100.1200 4.6-6.2 M/mm3 Low RBC 4.21 LAB L100.1300 13.0-16.5 g/dl Low HGB 10.0 LAB L100.1400 40-54 % Low HCT 29.6 LAB L100.1500 80-94 fL Low MCV 70.3 LAB L100.1600 27.0-32.0 pg Low MCH 23.8 LAB L100.1700 32-36 g/gl Normal MCHC 33.8 LAB L100.1810 11.6-14.6 % High RDW CV 16.2 LAB L100.1820 35.1-43.9 fl Normal RDW SD 40.9 LAB L100.1900 150-450 K/mm3 Normal PLT 263 LAB L100.2000 6.2-12.0 fl Normal MPV 10.3 Performed By: #### L100.0500 #### [facility] [address] [place], [place], [address] BASIC METABOLIC Collected: 04/20/2018 Status: F Source: [place] PROFILE (BMP) 5:18 AM [facility] REPOSITORY TYPE CODE TESTS RESULT OUT OF RANGE REFERENCE UNITS LAB L501.0100 74-106 mg/dL High GLU 123 Result Comment: Fasting Glucose result from 100 to 125 mg/dL suggests IMPAIRED HOMEOSTASIS per A.D.A. criteria. Please note revised GLUCOSE reference range effective 2017. LAB L501.1000 7-18 mg/dL Normal BUN 12 LAB L501.1100 0.70-1.30 mg/dL Normal CREAT,SERUM 0.76 Result Comment: The validity of the calculated GFR AND GFRAA in patients over 70 years has not been determined. Clinical correlation is essential. LAB L501.1110 >60 mL/min Normal EST GFR 114 Result Comment: Non- GFR Calc LAB L501.1115 >60 mL/min Normal EST GFR - AA 138 Result Comment: GFR Calc LAB L501.1255 ml/min Normal Estimated CRCL 97.78 LAB L501.1300 10-20 RATIO Normal BUN/CRE 15.9 LAB L501.2200 8.5-10 mg/dL Normal .1 CA 8.9 LAB L501.5300 136-14 mmol/L Normal 5 NA 138 LAB L501.5600 3.5-5. mmol/L Normal 1 K 4.5 LAB L501.5900 98-107 mmol/L Normal CL 103 LAB L501.6100 21.0-3 mmol/L Normal 2.0 CO2 27.0 LAB L501.6200 5-15 Normal GAP 8 Performed By: #### L500.2500 #### [facility] [address] [place], [address] OPERATIVE REPORT Observed: 04/19/2018 Status: F Source: [place] 11:00 AM [facility] REPOSITORY [facility] Medical Records Department [address] [place] [address] Operative Report 04/19/18 1057 MR#: [id number] Acct: [id number] Name: DENNIS LUIS Rep #: [id number] : 1965 52 From: Thad Jimenez MD PCP: Chino Calabrese, Status: ADM IN Y Location: [address] Report of Operation Date of Procedure: 04/19/18 Pre-Operative Diagnosis: Left hip primary osteoarthritis Post-Operative Diagnosis: Left hip primary osteoarthritis Surgery/Procedure Performed:: Left direct anterior total hip replacement Description of Surgical Findings:: Stable hip leg lengths are equal and radiograph semiconductor equipment technician: Ute Arguello Type of Anesthesia:: General Anesthesiologist: Nader Garcia Special Medications: 2 g Ancef, 1 g TXA at incision, 1 g TXA closure, 10 mg Decadron, joint cocktail (5 mg Duramorph, 30 mL of 0.5% Ropivicaine, 1000 units of epinephrine, 30 mg of Toradol) Specimen's removed: Bony cuts Estimated Blood Loss (mL): 250 Fluids Replaced: 1500 mL crystalloid Description of Procedure: Components used: 1. Accolade 2 Alexa femoral stem size 4 127 2. Alexa trident 2 acetabular shell size 54 mm 3. Cinebar X3 polyethylene E 4. Alexa Biolox delta 36mm, 2.5mm femoral head Brief history operative indications: 52 yo m who failed conservative measures for their hip osteoarthritis. X-rays were consistent with osteoarthritis including joint space narrowing, osteophyte formation and subchondral cysts. Total hip replacement was discussed with the patient with risks and benefits including but not limited to blood loss, DVTs, PEs, neurovascular damage, dislocation, general risks of anesthesia including loss of life. Patient demonstrated an understanding medical clearance is obtained the patient was consented for surgery. Procedure: On the date of procedure the patient's L hip was marked in the preoperative area. Patient was then taken back to the operating room where anesthesia assumed control of the C-spine and airway and administered anesthetic. Patient was transferred to the operating table and placed in the supine position. The hips were placed at the break of the bed and a sacral bump was placed. The L lower extremity was then prepped out in a sterile fashion using chlorhexidine while the surgeon scrubbed. The PA was vital in the positioning of the patient. Upon reentering the room the L lower extremity was draped in the standard orthopedic fashion and the incision was marked. A timeout was called and everyone agreed upon the side, the site, the procedure be performed, antibody given, and patient's identity. At this time incision was made through skin, subcutaneous tissue, and fat down to fascia. The fascia was then incised and the TFL was retracted laterally. A retractor was placed on the lateral border of the femoral neck. Attention was directed to the inferior portion of the approach and all crossing vessels were identified and appropriately coagulated. A retractor was then placed on the medial portion of the femoral neck. The anterior capsule was then cleared of all soft tissue and then H shaped capsulotomy was made. The retractors were then placed inside the capsule. The femoral neck was identified and a cleanup cut was made. At this time a power corkscrew was used to remove the femoral head. Attention was then turned toward the acetabulum where the soft tissues were appropriately retracted and the acetabulum was sequentially reamed to 54 mm. A 54 mm cup was then selected and impacted into place. Acetabular liner was impacted into place and locking mechanism was verified. The position of the acetabular cup was then verified under live fluoroscopy. Attention was then turned to the femur. Soft tissue releases on the medial and lateral femoral neck were appropriately done, the leg was externally rotated and lateralized. A Meraz retractor was placed medially and proximally to the greater trochanter this allowed appropriate visualization and exposure of the femoral canal. Rongeour was then used to remove excess lateral bone. A canal finder and entry broach were used to open the proximal canal. Once we verified we were down the femoral canal we subsequently broached up to a size 4 femur. The appropriate neck was placed in the previously selected head was trialed with a 2.5 mm neck. Traction was pulled and the hip was reduced with internal rotation. Once it was appropriately reduced and stability was checked. There was minimal shuck, equal leg lengths and appropriate stability with hyperextension and external rotation as well as with 90 flexion and internal rotation. Fluoroscopy was then also used to verify the position of the components and leg lengths using the contralateral side for comparison. The trial components were then dislocated the proximal femur was again exposed and the components were removed from the wound. The final components were verified and opened. The wound was copiously irrigated out with normal saline. The acetabulum was checked for any residual debris. The final components were placed and impacted. Traction and internal rotation were again used to reduce the hip. After adequate reduction the hip remained stable with appropriate leg lengths. The final components were once again checked with live fluoroscopy and were found to be satisfactory. The wound was then copiously irrigated with normal saline once more, and hemostasis was obtained. Closure was then done using #1 Vicryl runner to close the fascia. A 2-0 vicryl interuppted sutures were used to close the subcutaneous skin. A 3-0 Monocryl and Steri-Strips were used for final skin closure. A Silverlon dressing was placed. Patient was awakened by anesthesia and transferred to the [facility]. Patient was then transferred to the PACU for recovery. Postoperative plan: Patient will get 24 hours postop antibiotics. Patient will get in-house physical therapy and will be weight-bear as tolerated. Patient will follow up in office in 2 weeks for a wound check and x-rays. Grafts/Implants Used: Alexa Accolade 2 - Complications None - Admit VTE Documentation VTE Present on Admission: No VTE Mechan Device Prophylaxis: SCD's, Thigh High FRANSISCO Hose VTE Pharm Prophylaxis ordered?: Yes 04/19/18 1100 <Electronically signed by Thad Jimenez MD> Date Thad Jimenez MD CC: Chino Calabrese DO; Thad Jimenez MD Signed HIP MIN 2 VIEWS Observed: 04/19/2018 Status: F Source: [place] (PORTABLE) 9:32 AM [facility] REPOSITORY [facility] Imaging Services [address] [place] [address] [place] [address] Hip Min 2 Views (Portable) MR#: [id number] Acct: [id number] Name: DENNIS LUIS Rep #: [id number] : 1965 M 52 From: Leandra Polk MD PCP: Chino Calabrese DO Status: ADM IN Study: Hip Min 2 Views (Portable) Date of Exam: 04/19/18 Exam# [id number] Ordering Dr: Thad Jimenez MD STUDY: X-RAY - PELVIS AND LEFT HIP REASON FOR EXAM: Male, 52 years old. Postoperative study TECHNIQUE: Radiological exam, hip, unilateral, with pelvis when performed; 2 or 3 views. COMPARISON: None. FINDINGS: There is a non-specific bowel gas pattern. Normal visualized soft tissue structures. There is narrowing with cortical sclerosis and osteophyte formation of the sacroiliac joint consistent with degenerative osteoarthritic changes. Normal bilateral superior and inferior pubic rami. There are degenerative changes of the pubic symphysis with articular narrowing and sclerosis. Normal bilateral ischial tuberosities. Left hip arthroplasty in good alignment. RAD/Hip Min 2 Views (Portable) IMPRESSION: Left hip arthroplasty in good alignment. Electronically Signed: Leandra Polk MD at 13:49 EDT Tel , Service support , CC: Chino Calabrese DO; Thad Jimenez MD Workplace Trainer And Assessor: Signed HIP 1 VIEW WITH Observed: 04/19/2018 Status: F Source: [place] PELVIS 5:17 AM [facility] REPOSITORY [facility] Imaging Services [address] [place] [address] Hip 1 view with Pelvis MR#: [id number] Acct: [id number] Name: DENNIS LUIS Rep #: [id number] : 1965 M 52 From: Leandra Polk MD PCP: Chino Calabrese DO Status: ADM IN Study: Hip 1 view with Pelvis Date of Exam: 04/19/18 Exam# [id number] Ordering Dr: Thad Jimenez MD STUDY: X-RAY - PELVIS AND LEFT HIP REASON FOR EXAM: Male, 52 years old. LEFT ANTERIOR TOTAL HIP TECHNIQUE: Radiological exam, hip, unilateral, with pelvis when performed; 5 view intraoperative study. Fluoroscopy time is 14.6 seconds. COMPARISON: None. FINDINGS: A left hip arthroplasty is seen in good alignment. RAD/Hip 1 view with Pelvis IMPRESSION: A left hip arthroplasty is seen in good alignment. Electronically Signed: Leandra Polk MD at 15:02 EDT Tel , Service support , CC: Chino Calabrese DO; Thad Jimenez MD Workplace Trainer And Assessor: Signed 12 LEAD ELECTROCARDIOGRAM Observed: 04/12/2018 Status: F Source: [place] 8:33 AM [facility] REPOSITORY [facility] Cardiovascular Services [address] [place] [address] EKG - [facility] 04/07/18 1008 MR#: [id number] Acct: [id number] Name: DENNIS LUIS Rep #: [id number] : 1965 52 From: Gino Iqbal MD Attending Dr: Thad Jimenez MD Status: PRE IN Ordering Dr: Thad Jimenez MD Date: 04/07/18 Location: [facility] Sex: M AA Admitted: Test Reason : Blood Pressure : / mmHG Vent. Rate : 093 BPM Atrial Rate : 093 BPM P-R Int : 172 ms QRS Dur : 100 ms QT Int : 344 ms P-R-T Axes : 039 -43 020 degrees QTc Int : 427 ms Normal sinus rhythm Left axis deviation Abnormal ECG Confirmed by GINO IQBAL MD ([id number]), publishing editor RICHARD DRAPER ([id number]) on 04/12/2018 8:33:21 AM Referred By: Thad Jimenez Confirmed By:GINO IQBAL MD 04/12/18 0833 Date Gino Iqbal MD CC: Chino Calabrese DO; Thad Jimenez MD Date Dictated: 04/07/18 1008 Date Transcribed: 04/07/181007 Workplace Trainer And Assessor: Signed HISTORY AND PHYSICAL Observed: 04/09/2018 Status: F Source: [place] EXAM 8:38 AM [facility] REPOSITORY [facility] Medical Records Department [address] [place] [address] History and Physical 04/09/1837 MR#: [id number] Acct: [id number] Name: DENNIS LUIS Rep #: [id number] : 1965 52 From: Bernardo Beth PA-C PCP: Chino Calabrese DO Status: PRE IN Y Location: [facility] History and Physical DATE OF SURGERY: 04/19/2018 SCHEDULED PROCEDURE: Direct anterior left total hip arthroplasty HISTORY OF PRESENT ILLNESS: This is a 52-year-old male who has been having ongoing bilateral hip pain for over one year. Pain can reach as high as a 7/10. Pain is sharp and stabbing. He has increased pain going up and down stairs. He has difficult time sleeping due to his pain. Pain is increased with walking. He does get bilateral groin pain. He has difficult time with housework due to his bilateral hip pain. He feels his activities of daily living have been significantly affected. Patient does have start up pain. Patient denies previous surgery on bilateral hips. He has required a cane for ambulatory assistance. Patient has tried conservative measures consisting of ice and previous cortisone injection in pain management with minimal relief. Patient has tried rest, heat, and elevation with no relief. He has tried physical therapy with no relief in symptoms. Patient has been to the chiropractor with no relief in symptoms. Patient recently on March 06 underwent a cervical spine surgery at [facility] and is doing well postoperatively. Patient states bilateral hip pain continues to progress. After failing conservative measures and discussing all treatment options with Dr. Thad Barbara, the patient would like to proceed with a direct anterior left total hip arthroplasty. Patient has medical history pertinent for hypertension. He currently denies any chest pain, shortness of breath, fevers chills, recent infections. REVIEW OF SYSTEMS: ROS: Const: Reports difficulty sleeping, but denies anorexia, change in appetite, fever and weight change. CV: Denies chest pain, heart murmur, irregular heartbeat and peripheral vascular disease. Resp: Denies asthma, cough, pneumonia, sleep apnea, shortness of breath, tuberculosis and wheezing. GI: Denies constipation, diarrhea, heartburn, nausea, rectal itching, bloody stools and vomiting. : Denies incontinence. Musculo: Reports pain, trouble walking and weakness, but denies leg swelling. Skin: Denies Raynaud's, history of shingles and tattoo. Neuro: Reports numbness/tingling but denies ambulatory dysfunction, dizziness and tremor. Psych: Reports insomnia and stress, but denies anxiety, depression and mental illness. Matt/Lymph: Denies anemia, bleeding/bruising tendency and past transfusion. Reviewed, no changes. PAST MEDICAL HISTORY: Advance Care Plan: No Advance Directives Effective Date: 04/07/2018 PMH: Medical Problems: High Blood Pressure Accidents: None Surgical Hx: Hernia Repair - 7 YEARS AGO C-3 C-4 C-5 C-6 Removal - (03/06/2018) Anesthesia Complications: None Assistive Devices: Glasses Reviewed and updated. SOCIAL HISTORY: SH: Marital: Single.Occupation: Currently Working.Work Status: Currently Working.Hand Dominance: Right-handed. Personal Habits: Cigarette Use: Never Smoked Cigarettes.Alcohol: Occasionally.Drug Use: Denies Use.Enjoy Exercising: Exercises 1-3 x/month. Reviewed, no changes. VITALS: Ht: 65 Wt: 184lb Wt k.462 BMI: 30.6 BP: 156/103 Pulse: 102 Resp: 16 T: 97.8 T: 36.6C ALLERGIES: No Known Drug Allergy MEDICATIONS: Edarbi 80 mg 1 daily, Amlodipine Besylate 5 mg 1 by mouth every day, Atorvastatin Calcium 10 mg PRE-OP EXAM: General appearance:NORMAL Other: Eyes: Conjunctivae and lids: NORMAL Pupils: ERR Ears, Nose, Mouth, and Throat: NORMAL Other: Inspection of lips, teeth and gums: NORMAL Other: Neck: Examination of neck: no masses noted. Respiratory: Assessment of respiratory effort: NORMAL Other: Auscultation of lungs: clear to auscultation no wheezes, rhonchi or rales. Cardiovascular: Auscultation of heart: regular rate and rhythm, no murmurs, gallops or rubs. Exam of carotid arteries: NORMAL Other: Gastrointestinal: Exam of abdomen: soft, nontender, nondistended bowel sounds present. PHYSICAL EXAMINATION: Patient walks with an antalgic gait. Left hip is cool to touch without erythema. Left hip flexion 85, internal rotation to neutral, external rotation to 25. Sensation intact to light touch. Neurovascularly intact. IMAGING STUDIES: X-rays were obtained at [facility] on April 07, 2018 including 2 views AP pelvis and AP left hip reveals severe osteoarthritis bilaterally with subchondral sclerosis, joint space narrowing, and osteophyte formation. There is raei-co-ypor contact in bilateral hips. No acute finding for fracture or dislocation. No lytic or blastic lesion. IMPRESSION: 1. Severe left hip osteoarthritis 2. Severe right hip osteoarthritis 3. Hypertension 4. Recent cervical spine surgery PLAN: Dr. Jimenez did discuss and review with the patient all treatment options including surgical versus nonsurgical options. Patient does wish to proceed with the above-stated procedure. Potential risks, benefits, and complications of the procedure were discussed in detail including but not limited to , infection, nerve and blood vessel damage, persistent pain, numbness, tingling, paresthesias, blood clot, pulmonary embolism, and requirement for possible further surgery. The patient expressed full understanding and has no further questions for the doctor. Patient does agree to proceed with the above-stated procedure and has signed the surgery consent form. We have obtain surgical clearance from patient's primary care physician Dr. Calabrese. ___ I have re-examined the patient. There are no clinical changes since date of exam. ___ See progress notes for changes. ___ Dictated on admission Date: Time: Signature: 04/09/18 0838 <Electronically signed by Bernardo Beth PA-C> Date Bernardo Beth PA-C Cosigner Signature: Date (if applicable) CC: Chino Calabrese DO; Bernardo IVAN Signed CBC W/DIFF, AUTOMATED Collected: 04/07/2018 Status: F Source: [place] 11:15 AM [facility] REPOSITORY TYPE CODE TESTS RESULT OUT OF RANGE REFERENCE UNITS LAB L100.1000 4.4-11.0 K/mm3 Normal WBC 4.8 LAB L100.1200 4.6-6.2 M/mm3 Normal RBC 5.48 LAB L100.1300 13.0-16.5 g/dl Low HGB 12.5 LAB L100.1400 40-54 % Low HCT 38.6 LAB L100.1500 80-94 fL Low MCV 70.4 LAB L100.1600 27.0-32.0 pg Low MCH 22.8 LAB L100.1700 32-36 g/gl Normal MCHC 32.4 LAB L100.1810 11.6-14.6 % High RDW CV 16.5 LAB L100.1820 35.1-43.9 fl Normal RDW SD 41.9 LAB L100.1900 150-450 K/mm3 Normal PLT 242 LAB L100.2000 6.2-12.0 fl Normal MPV 9.4 LAB L100.2100 47-70 % Normal NEUT% 59.9 LAB L100.2200 19-41 % Normal LY% 29.3 LAB L100.2300 0-10 % Normal MONO% 7.3 LAB L100.2400 0-5 % Normal EO% 2.3 LAB L100.2500 0-1 % Normal BASO% 1.0 LAB L100.2550 0.0-0.9 % Normal IM GRAN % 0.200 Result Comment: IG% - Immature Granulocytes (promyelocytes, myelocytes and metamyelocytes) > 1% indicates that a LEFT SHIFT is Present. LAB L100.2620 2.0-7.7 X10 3/uL Normal Absolute Neut 2.9 LAB L100.2720 0.83-4.51 X10 3/ul Normal Absolute Lymph 1.41 Performed By: #### L100.0100 #### [facility] [address] [place], [address] PROTHROMBIN TIME W/INR Collected: 04/07/2018 Status: F Source: [place] 11:15 AM [facility] REPOSITORY TYPE CODE TESTS RESULT OUT OF RANGE REFERENCE UNITS LAB L300.4150 11.7-14.9 SECONDS Normal PROTIME 13.1 LAB L300.4200 Normal INR 1.0 Performed By: #### L300.3900, L300.4310 #### [facility] [address] [facility] [facility] [address] PARTIAL THROMBOPLAST Collected: 04/07/2018 Status: F Source: [place] TIME 11:15 AM [facility] REPOSITORY TYPE CODE TESTS RESULT OUT OF RANGE REFERENCE UNITS LAB L300.4310 24.1-36.2 Seconds Normal PTT 25.8 Performed By: #### L300.3900, L300.4310 #### [facility] [address] [facility] [facility] [address] BASIC METABOLIC Collected: 04/07/2018 Status: F Source: [place] PROFILE (BMP) 11:15 AM [facility] REPOSITORY TYPE CODE TESTS RESULT OUT OF RANGE REFERENCE UNITS LAB L501.0100 74-106 mg/dL High GLU 113 Result Comment: Fasting Glucose result from 100 to 125 mg/dL suggests IMPAIRED HOMEOSTASIS per A.D.A. criteria. Please note revised GLUCOSE reference range effective 2017. LAB L501.1000 7-18 mg/dL Normal BUN 12 LAB L501.1100 0.70-1.30 mg/dL Normal CREAT,SERUM 0.80 Result Comment: The validity of the calculated GFR AND GFRAA in patients over 70 years has not been determined. Clinical correlation is essential. LAB L501.1110 >60 mL/min Normal EST GFR 107 Result Comment: Non- GFR Calc LAB L501.1115 >60 mL/min Normal EST GFR - AA 130 Result Comment: GFR Calc LAB L501.1255 ml/min Normal Estimated CRCL 92.89 LAB L501.1300 10-20 RATIO Normal BUN/CRE 15.0 LAB L501.2200 8.5-10 mg/dL Normal .1 CA 9.1 LAB L501.5300 136-14 mmol/L Normal 5 NA 139 LAB L501.5600 3.5-5. mmol/L Normal 1 K 3.8 LAB L501.5900 98-107 mmol/L Normal CL 101 LAB L501.6100 21.0-3 mmol/L Normal 2.0 CO2 27.0 LAB L501.6200 5-15 Normal GAP 11 Performed By: #### L500.2500, L500.3400 #### [facility] [address] [place], [place], [id number] LIVER PROFILE Collected: 04/07/2018 Status: F Source: [place] 11:15 AM [facility] REPOSITORY TYPE CODE TESTS RESULT OUT OF RANGE REFERENCE UNITS LAB L501.1500 6.4-8.2 g/dL Normal T PROT 7.9 LAB L501.1800 3.2-5.0 g/dL Normal ALB 3.7 LAB L501.1950 2.2-4.2 g/dL Normal GLOB 4.2 LAB L501.4100 15-37 U/L Normal AST 19 LAB L501.4305 45-117 U/L Normal ALK P 106 LAB L501.4405 16-61 U/L Normal ALT 26 LAB L501.4600 0.20-1.00 mg/dL Normal T BILI 0.70 LAB L501.4700 0.00-0.30 mg/dL Normal D BILI 0.19 Performed By: #### L500.2500, L500.3400 #### [facility] [address] [place], [place], [id number] Observed: 04/07/2018 Status: F Source: [place] MRSA/SAID SCREEN 11:15 AM [facility] REPOSITORY MRSA/SAID SCRN S. AUREUS S. aureus Positive MRSA MRSA Negative Performed By: #### M100.651 #### [facility] [address] [place], [address] INTERNAL MEDICINE Observed: 03/29/2018 Status: F Source: [place] OFFICE VISIT 2:31 PM [facility] REPOSITORY [facility] [address] [place] [address] OFFICE VISIT Date of Service: 03/29/18 MR#: [id number] Acct: [id number] Name: DENNIS LUIS Rep #: [id number] : 1965 Provider: Chino Calabrese DO Age/Sex: 52/M Location: [facility] Status: Signed Intake Vital Signs03/29/18 Height 5 ft 4 in 03/29/18 Weight: 182 lb 03/29/18 Body Mass Index (BMI) 31.2 03/29/18 Blood Pressure 162/83 Intake Visit Reasons: SURGERY CLEARANCE REQUEST Chief Complaint: Surgery Clearance Is patient in pain?: Yes (Bilat hips - when walking) Pain scale (1-10): 7 Allergies No Known Allergies Allergy (Verified 03/29/18 13:52) Medications aspirin 81 mg tablet,delayed release 81 mg PO QDAY 11/10/17 [History Confirmed 03/29/18] ibuprofen 600 mg tablet 600 mg PO TID PRN #90 tab 11/24/17 [Rx Confirmed 03/29/18] fluticasone 50 mcg/actuation nasal spray,suspension 2 spray INTRANASAL QDAY #47.4 g 02/22/18 [Rx Confirmed 03/29/18] amlodipine 5 mg tablet 5 mg PO QDAY #90 tab 03/03/18 [Rx Confirmed 03/29/18] atorvastatin 10 mg tablet 10 mg PO QDAY #90 tab 03/03/18 [Rx Confirmed 03/29/18] azilsartan medoxomil 80 mg tablet 80 mg PO QDAY #90 tab 03/03/18 [Rx Confirmed 03/29/18] famciclovir 250 mg tablet 250 mg PO BID #180 tab 03/03/18 [Rx Confirmed 03/29/18] PFSH Medical History High cholesterol (Chronic) High blood pressure (Chronic) Surgical History History of cervical spinal surgery (Acute) History of hernia repair (Acute) Family History Mother Cancer Sister Diabetes Brother Diabetes Social History Smoking Status: Never smoker alcohol intake: current alcohol intake frequency: holidays/special occasions only Alcohol type: beer substance use type: does not use what type of physical activity do you participate in: none HPI HPI Chief Complaint: Surgery Clearance Details: DENNIS LUIS, is a 52 M who presents to the office today for a surgical clearance exam ROS Const Constitutional: No chills, fatigue, fever(s), frequent falls, malaise, weakness, sleep problems or change in appetite Eyes Eyes: No blurry vision, change in vision, double vision, discharge or visual disturbances ENT ENT: No abnormal hearing, ear pain, ear pressure, tinnitus or dizziness/vertigo Resp Respiratory: No cough, shortness of breath or wheezing Cardio Cardiology: No chest pain at rest, chest pain with exertion, shortness of breath, dyspnea on exertion, generalized swelling, irregular heart rhythm, lightheadedness, orthopnea, fast heart rate or palpitations Gastro GI: No abdominal pain, change in bowel habits, constipation, diarrhea, nausea/dyspepsia or vomiting Genitourinary Male: No difficulty urinating, burning urination, painful urination, urinary incontinence, urinary frequency, urinary urgency, urinary hesitancy, urinary retention, blood in urine, Frequent nighttime urination/ nocturia, sexual problems, testicle lump or testicle pain Musc Musculoskeletal: Positive for joint pain (Bilat Hips); no back pain, joint swelling, limited range of motion, muscle weakness, numbness or tingling Skin Skin: No change in skin color, itching, rash or wounds Breast Breast: No breast lump or breast pain Neuro Neurology: No frequent falls, weakness, abnormal hearing, numbness, tingling, unsteady gait/balance, dizziness, loss of vision, memory loss or visual disturbances Psych Psychiatric: No memory loss, No anxiety, No change in appetite, No depression, No Thoughts of harming yourself/Others Endo Endocrine: No fatigue, heat intolerance, increased thirst/drinking, increased hunger or increased urination Aller/Imm Allergy/Immunologic: No wheezing, itchy eyes or seasonal allergy symptoms Matt/Lymp Hematologic/Lymphatic: No easy bleeding, easy bruising or enlarged lymph nodes Exam Const General: cooperative Nutritional Appearance: average body habitus Orientation: oriented x3 Resp Effort AND Inspection: normal respiratory effort Auscultation: Bilateral: Clear to Auscultation Cardio Rate: regular rate Rhythm: regular rhythm Musc Musculoskeletal: Yes joint tenderness; no muscle weakness Other: Decreased range of motion of both hips. Upper extremities normal. Skin General: no rashes or lesions noted Extrem General: no clubbing, cyanosis or edema Psych Thought Process: normal Judgment: judgment good Assessment AND Plan Problems 1. Hypertension I10 2. High cholesterol E78.00 3. Primary osteoarthritis of both hips M16.0 Plan Cleared for surgery. Coding Level of Care Code Off vis,est,level 3 Diagnoses Hypertension I10 High cholesterol E78.00 Primary osteoarthritis of both hips M16.0 Osteoarthritis type: primary 03/29/18 1431 <Electronically signed by Chino Calabrese DO> Date Chino Calabrese DO Cosigner Signature: Date (if applicable) CC: EMERGENCY DEPARTMENT Observed: 03/12/2018 Status: F Source: [place] SUMMARY 5:41 PM [facility] Medical Records Department [address] [place] [address] Emergency Department Summary 03/12/18 1128 MR#: [id number] Acct: [id number] Name: DENNIS LUIS Rep #: [id number] : 1965 52 From: Marielos Sandoval MD PCP: Chino Calabrese DO Status: DEP ER - ER Visit Summary Date of Service: 03/12/18 Chief Complaint: Back pain History of Present Illness: The patient is a 52 M with a history of back spasms. He has had upper lumbar spasms over the last 4 days or so. Patient did have neck surgery 6 days ago at [facility]. He is unsure if he is compensating differently because of his neck surgery or if it was positioning when he was on the operating table that triggered his spasms again. Patient was seen at [facility] yesterday and was given morphine, ibuprofen, and Flexeril. Patient does have oxycodone at home his last dose was 5-1/2 hours ago. Physical Examination: Vital signs are unremarkable. Patient is sitting in a wheelchair at bedside. Head neck examination reveals soft c-collar in place. Heart is regular rate and rhythm. Lung sounds are clear. Abdomen is soft with no focal tenderness. Back examination reveals tenderness in the lumbar paraspinals, left greater than right. Lower external examination reveals good strength and sensation throughout with strong distal pulses. Test Results: [] Emergency Department Course and Treatment: Patient was given 1 mg of IM Dilaudid and 5 mg of p.o. Valium. Repeat evaluation 1 hour later reveals the patient with improvement in his symptoms. He still has very mild tension in his lower back but states overall he feels significantly improved. He will be given Valium to use at home for muscle spasm if needed. He currently has Flexeril and was told to take one or the other, but not to combine them. Treatment Plan: [] Disposition: Discharge Impression: Muscle spasm, improved This note was generated with [employer] dictation software. It may contain incorrect words, spelling, and punctuation that were not noted in review of the chart prior to signing ED Disposition - Plan for ED Patient: Chief Complaint: Back Referrals: Chino Calabrese, DO [Primary Care Provider] - What to do if you have Problems For any increased pain, shortness of breath, bleeding, nausea or vomiting, chest pain, or any unexpected problems, contact your Primary Care Provider. Call [facility] ([phone]) or report to the closest Emergency Room. Call 911 if necessary. 03/12/18 1788 <Electronically signed by Marielos Sandoval MD> Date Marielos Sandoval MD Cosigner Signature (If Indicated): Date CC: Chino Calabrese DO DISCHARGE INSTRUCTION Observed: 03/12/2018 Status: F Source: [place] 12:46 PM [facility] Medical Records Department [address] [place] [address] Discharge Instruction 03/12/18 1245 MR#: [id number] Acct: [id number] Name: DENNIS LUIS Rep #: [id number] : 1965 52 From: Marielos Sandoval MD PCP: Chino Calabrese DO Status: REG ER ED Disposition - Plan for ED Patient: Disposition: Home or Assisted Living Chief Complaint: Back Instructions: ED Spasm Muscle Prescriptions: Diazepam [Valium] 5 mg PO Q8 PRN #10 tablet PRN Reason: Muscle Spasm Referrals: Chino Calabrese DO [Primary Care Provider] - 1 Week What to do if you have Problems For any increased pain, shortness of breath, bleeding, nausea or vomiting, chest pain, or any unexpected problems, contact your Primary Care Provider. Call [facility] ([phone]) or report to the closest Emergency Room. Call 911 if necessary. 03/12/18 1246 <Electronically signed by Marielos Sandoval MD> Date Marielos Sandoval MD Cosigner Signature (If Indicated): Date CC: Chino Calabrese DO SPINE CERVICAL Observed: 01/30/2018 Status: F Source: [place] (ROUTINE) 10:05 AM [facility] Imaging Services [address] [place] [address] Spine Cervical (Routine) MR#: [id number] Acct: [id number] Name: DENNIS LUIS Rep #: [id number] : 1965 M 52 From: Vishal Miguel MD PCP: Chino Calabrese, Status: REG CLI Study: Spine Cervical (Routine) Date of Exam: 01/30/18 Exam# [id number] Ordering Dr: Izzy Wilson MD STUDY: MRI CERVICAL SPINE WITHOUT CONTRAST REASON FOR EXAM: Male, 52 years old. Cervical radiculopathy. TECHNIQUE: Standardized fat and water weighted pulse sequences were obtained in the sagittal and axial planes. COMPARISON: None FINDINGS: Normal foramen magnum and brainstem-cervical cord junction. Normal craniovertebral junction. Pronounced degenerative narrowing of the predental space. Normal lateral atlantoaxial articulations. Normal odontoid process. Mild cervical kyphosis at the C4-C5 disc level. Normal vertebral bodies and posterior osseous elements. C2-3: Normal endplates. Normal disc height, signal and morphology. Normal central canal and intervertebral neural foramina. C3-4: Normal endplates. Mild disc space height narrowing. Left posterior disc extrusion with displacement of the left C4 nerve root sleeve (series 2 and 3, image 6; series 7, images 124-131). C4-5: Prominent anterior and posterior marginal spurs and prominent posterior midline disc protrusion. Severe central canal stenosis with spinal cord compression. The AP canal diameter is 2 mm. There is intrinsic signal abnormality of the spinal cord due to myelomalacia from chronic cord compression. C5-6: Smaller anterior and posterior marginal spurs. Normal endplates. Normal disc height with moderate loss of disc hydration. Mild central canal stenosis. The AP canal diameter is 5 mm but the transverse canal diameter is 13.5 mm wide. Moderately pronounced stenosis of the bilateral intervertebral neural foramina. C6-7: Small anterior and posterior marginal spurs. Normal endplates. Mild disc space height narrowing. Normal central canal and bilateral intervertebral neural foramina. C7-T1: Normal endplates. Normal disc height. Small posterior bulging disc. Normal central canal and bilateral intervertebral neural foramina. T1-T2: Normal endplates. Minimal degenerative anterolisthesis of T1 on T2. Normal central canal and bilateral intervertebral neural foramina. T2-T3: (Sagittal only). Normal endplates. Moderate anterior disc space height narrowing. Normal central canal and bilateral intervertebral neural foramina. T3-T4: (Sagittal only). Normal endplates. Normal disc height and morphology. Normal central canal and bilateral intervertebral neural foramina. Abnormal cervical spinal cord due to severe central canal stenosis and the spinal cord compression at C4-C5 disc level. There is intramedullary high signal intensity of the compressed spinal cord due to myomalacia from chronic cord compression. Normal visualized soft tissue structures. MRI/Spine Cervical (Routine) IMPRESSION: 1. Severe central canal stenosis at C4-C5 disc level with posterior midline disc protrusion and posterior marginal spurs causing chronic cord compression with myelomalacia of the spinal cord. 2. Left-sided C3-C4 posterior disc extrusion with displacement of the left C4 nerve root sleeve. 3. Mild central canal stenosis at C5-C6 this level and moderately pronounced stenosis of the bilateral C5-C6 intervertebral neural foramina. Electronically Signed: Vishal Miguel MD at 14:27 EDT , Service support , CC: Chino Calabrese DO; Izzy Wilson MD Workplace Trainer And Assessor: Signed ORTHOPEDIC VISIT Observed: 01/28/2018 Status: F Source: [place] REPORT 9:31 PM [facility] Orthopa[facility]ics AND Sports Medicine [address] [place] [address] OFFICE VISIT Date of Service: 01/24/18 MR#: [id number] Acct: [id number] Name: DENNIS LUIS Rep #: [id number] : 1965 Provider: Izzy Wilson MD Age/Sex: 52/M Location: [facility] [place] [place] Status: Signed Intake Intake Visit Reasons: LUMBAR SPINE Is patient in pain?: Yes Pain scale (1-10): 7 Allergies No Known Allergies Allergy (Verified 01/24/18 13:41) Medications aspirin 81 mg tablet,delayed release 81 mg PO QDAY 11/10/17 [History Confirmed 11/10/17] tramadol 50 mg tablet 50 mg PO Q6H #30 tab 11/14/17 [Rx] ibuprofen 600 mg tablet 600 mg PO TID PRN #90 tab 11/24/17 [Rx] PFSH Medical History High cholesterol (Chronic) High blood pressure (Chronic) Surgical History History of hernia repair (Acute) Family History Mother Cancer Sister Diabetes Brother Diabetes Social History Smoking Status: Never smoker alcohol intake: current alcohol intake frequency: holidays/special occasions only Alcohol type: beer substance use type: does not use what type of physical activity do you participate in: none HPI LUMBAR SPINE: Details: DENNIS LUIS is a 52 year old RHD M here today referred by Dr Calabrese for low back pain. Patient states that he has had back pain for about 2 years with it progressively worsening. Patient denies any known injury. He complains of pain of his entire low back and a burning pain over his lumbar spine. He has 30% back pain/tightness and 70% bilateral buttock pain. He states it is worse with walking greater than 1 block due to bilateral leg fatigue and standing. He also has left groin and thigh pain. He states physical therapy helped the IT band symptoms and piriformis symptoms. His pain is improved with stretching his back and legs. He has urinary urgency. He denies gait aids. He denies difficulty with hand dexterity. He does have baseline bilateral hand paresthesias. He has no pain management physician. He takes NSAIDs without relief. He has had no spine surgery, injections or constitutional symptoms. He denies nicotine use. He works at [employer]. He drinks 2 beers and 6 ounces of vodka daily. He denies IVD use. He has hypertension. ROS Const Reports system reviewed and no additional complaints, except as docu Eyes Reports system reviewed and no additional complaints, except as docu ENT Reports system reviewed and no additional complaints, except as docu Card Reports system reviewed and no additional complaints, except as docu Resp Reports system reviewed and no additional complaints, except as docu GI Reports system reviewed and no additional complaints, except as docu Reports system reviewed and no additional complaints, except as docu Musc Reports back pain, Reports muscle weakness Skin/Breast Reports system reviewed and no additional complaints, except as docu Neuro Yes system reviewed and no additional complaints, except as docu Psych Reports system reviewed and no additional complaints, except as docu Endo Reports system reviewed and no additional complaints, except as docu Ortho Exam Spine Neuro: Yes Perez's (postiive on the right), Spurling's (negative bilaterally), Clonus (5 beats on the right) and Straight Leg Raise (negative bilaterally) General: alert, oriented x3 Skin: Yes dysraphism (negative) Capillary Refill <2sec: Yes Palpable Pulses: 2+ dp and pt pulses Gait: antalgic, other (able to heel and toe walk. some difficulty with tandem. negative rombergs) Motor: strength 5/5 throughout Sensory Exam: no sensory deficits noted DTR's: Rt Triceps: 2+, Lt Triceps: 2+, Rt Biceps: 2+, Lt Biceps: 2+, Rt Brachioradialis: 2+, Lt Brachioradialis: 2+, Rt Patellar: 2+, Lt Patellar: 2+, Rt Ankle: 2+, Lt Ankle: 2+ Plantar Reflexes: Downgoing: bilateral Coordination: Romberg test normal Details: limited bilateral hip range of motion to include IR and flexion positive stinchfield bilaterally that reproduces the patient's pain SPINE TESTING CERVICAL THORACIC LUMBAR SLR: Negative Musculoskeletal General: Yes normal posture Cervical Spine: cervical ROM normal Thoracic/Lumbar Spine: pain with thoraco-lumbar ROM (worse with lumbar extension than flexion), thoraco-lumbar ROM limited, paraspinal tenderness Strength 0=absent - 5=normal Deltoid R (C5): 5, Deltoid L (C5): 5, R Bicep (C5-6): 5, L Bicep (C5-6): 5, R Wrist Extensor (C6): 5, L Wrist Extensor (C6): 5, R Tricep (C7): 5, L Tricep (C7): 5, R Finger Flexors (C8): 5, L Finger Flexors (C8): 5, R First Dorsal Interossei (C8): 5, L First Dorsal Interossei (C8): 5, R Hip Flexor (L1-3): 5, L Hip Flexor (L1-3): 5, R Quadriceps (L2-4): 5 (able to squat and rise), L Quadriceps (L2-4): 5 (able to squat and rise), R Anterior Tibialis (L4-5): 5, L Anterior Tibialis (L4-5): 5, R Hamstrings (L5-S1): 5, L Hamstrings (L5-S1): 5, GS (S1): 5, L GS (S1): 5, R Peroneals (S1): 5, L Peroneals (S1): 5 Assessment AND Plan Problems 1. Spinal stenosis, lumbar region with neurogenic claudication M48.062 2. Coxarthrolisthesis of left hip M21.852 3. Coxarthrolisthesis of right hip M21.851 Plan Imaging: XR lumbar spine 01/24/2018 - diffuse spondylosis XR pelvis and hip 01/24/2018 - severe bilateral coxarthrosis MRI lumbar spine 11/18/2017 - diffuse spondylosis with congenital lumbar stenosis. severe spinal stenosis at L3-L4 I/R/P: 1. back pain 2. bilateral leg pain 3. bilateral hip pain 4. alcohol use Mr. Luis presents with back and bilateral leg pain. He has symptoms of bilateral hip arthritis as well as possible neurogenic claudication. The natural history and course of the symptomatology of spinal stenosis was discussed in detail with the patient. I answered all questions regarding the mode of onset, pathophysiology, symptoms, imaging findings, treatment options (both non-operative and operative) regarding his diagnosis. Recommend MRI cervical spine given he has upper motor neuron findings with positive perez's and clonus. Recommend referral to orthopedic joint surgeon for evaluation of hip pathology. Referral to Dr. Joe, pain management, per the patient's request. Follow up after MRI and ortho evaluation or sooner if issues arise. Plan of care discussed. All questions answered. The patient verbalized understanding of the disease process and agreed to the treatment plan formulated for this visit. Orders Orders: Coding Level of Care Code Off vis,new,level 4 Diagnoses Spinal stenosis, lumbar region with neurogenic claudication M48.062 Coxarthrolisthesis of left hip M21.852 Coxarthrolisthesis of right hip M21.851 01/28/18 2131 <Electronically signed by Izzy Wilson MD> Date Izzy Wilson MD [facility] Signature: Date (if applicable) CC: Chino Calabrese DO HIPS B/L MIN 2 Observed: 01/24/2018 Status: F Source: [place] VIEWS W/ PELVIS 2:51 PM [facility] Imaging Services [address] [place] [address] Hips B/L min 2 views w/ Pelvis MR#: [id number] Acct: [id number] Name: DENNIS LUIS Rep #: [id number] : 1965 M 52 From: Cristian Gann DO PCP: Chino Calabrese DO Status: REG CLI Study: Hips B/L min 2 views w/ Pelvis Date of Exam: 01/24/18 Exam# [id number] Ordering Dr: Izzy Wilson MD STUDY: X-RAY - PELVIS AND BILATERAL HIPS REASON FOR EXAM: Male, 52 years old. Bilateral hip pain. TECHNIQUE: Radiological exam, hip, bilateral, with pelvis when performed; minimum of 5 views COMPARISON: None. FINDINGS: There is a non-specific bowel gas pattern. Normal visualized soft tissue structures. Normal bilateral iliac wings, sacroiliac joints and visualized sacrum. Normal bilateral superior and inferior pubic rami. Normal pubic symphysis. Normal bilateral ischial tuberosities. There are osteoarthritic changes of the right femoral head with marginal osteophyte formation. There is osteoarthritic spur formation of the right acetabular rim. There is severe articular joint space narrowing of the right hip. There are osteoarthritic changes of the left femoral head with marginal osteophyte formation. Normal left acetabulum. There is severe articular joint space narrowing of the left hip. RAD/Hips B/L min 2 views w/ Pelvis IMPRESSION: Marked degenerative changes of the bilateral hips. Electronically Signed: Cristian Gann DO at 15:46 EDT Tel [phone], Service support , CC: Chino Calabrese DO; Izzy Wilson MD Workplace Trainer And Assessor: Signed L/S SPINE MIN 4 Observed: 01/24/2018 Status: F Source: [place] VIEWS 1:42 PM [facility] Imaging Services [address] [place] [address] L/S Spine Min 4 Views MR#: [id number] Acct: [id number] Name: DENNIS LUIS Rep #: [id number] : 1965 M 52 From: Cristian Gann DO PCP: Chino Calabrese DO Status: REG CLI Study: L/S Spine Min 4 Views Date of Exam: 01/24/18 Exam# [id number] Ordering Dr: Izzy Wilson MD STUDY: X-RAY - PELVIS AND BILATERAL HIPS REASON FOR EXAM: Male, 52 years old. Bilateral hip pain. TECHNIQUE: Radiological exam, hip, bilateral, with pelvis when performed; minimum of 5 views COMPARISON: None. FINDINGS: There is a non-specific bowel gas pattern. Normal visualized soft tissue structures. Normal bilateral iliac wings, sacroiliac joints and visualized sacrum. Normal bilateral superior and inferior pubic rami. Normal pubic symphysis. Normal bilateral ischial tuberosities. There are osteoarthritic changes of the right femoral head with marginal osteophyte formation. There is osteoarthritic spur formation of the right acetabular rim. There is severe articular joint space narrowing of the right hip. There are osteoarthritic changes of the left femoral head with marginal osteophyte formation. Normal left acetabulum. There is severe articular joint space narrowing of the left hip. RAD/L/S Spine Min 4 Views IMPRESSION: Marked degenerative changes of the bilateral hips. Electronically Signed: Cristian GannDO at 15:46 EDT Tel [phone], Service support , CC: Chino Calabrese DO; Izzy Wilson MD Workplace Trainer And Assessor: Signed SPINE LUMBAR Observed: 11/18/2017 Status: F Source: [place] (ROUTINE) 9:17 AM [facility] Imaging Services [address] [place] [address] Spine Lumbar (Routine) MR#: [id number] Acct: [id number] Name: DENNIS LUIS Rep #: [id number] : 1965 M 52 From: Ignacio Chahal PCP: Chino Calabrese DO Status: REG CLI Study: Spine Lumbar (Routine) Date of Exam: 11/18/17 Exam# [id number] Ordering Dr: Chino Calabrese DO STUDY: MRI LUMBAR SPINE WITHOUT CONTRAST REASON FOR EXAM: Male, 52 years old. spinal stenosis, BACK PAIN RADIATES INTO L HIP X 1.5 YRS. TECHNIQUE: Standardized fat and water weighted pulse sequences were obtained in the sagittal and axial planes. COMPARISON: None FINDINGS: There is a transitional morphology. Confirmation of Lumbar numbering before surgical intervention is recommended. T12-L1: Normal endplates. Normal disc height, hydration and morphology. Normal central canal and bilateral lateral recesses. Normal bilateral intervertebral neural foramina. There is straightening of the normal lumbar lordosis. There is no substantial scoliosis. Normal conus medullaris that terminates at the L1 L1-2: Normal endplates. Normal disc height, hydration and morphology. Normal central canal and bilateral lateral recesses. Normal bilateral intervertebral neural foramina. There is bilateral facet hypertrophy. L2-3: Normal endplates. Normal disc height, hydration and morphology. Normal bilateral intervertebral neural foramina. There is bilateral facet hypertrophy with no central canal stenosis.. L3-4: There is minimal disc space narrowing and relatively gasless. There is a minimal disc bulge and facet hypertrophy with moderate central canal stenosis. There is mild bilateral foraminal stenosis. L4-5: There is minimal disc space narrowing and relatively gasless. There is a minimal disc bulge and facet hypertrophy with mild central canal stenosis. There is mild bilateral foraminal stenosis. L5-S1: Normal endplates. Normal disc height, hydration and morphology. Normal central canal and bilateral lateral recesses. Normal bilateral intervertebral neural foramina. There is bilateral facet arthropathy. Normal visualized sacral ala. Normal visualized paraspinous soft tissue structures. MRI/Spine Lumbar (Routine) IMPRESSION: Transitional morphology. L3/L4: Moderate central canal stenosis. Electronically Signed: Ignacio Chahal MD at 9:08 EDT Tel , Service support , CC: Chino Calabrese DO Workplace Trainer And Assessor: Signed INTERNAL MEDICINE Observed: 11/17/2017 Status: F Source: [place] OFFICE VISIT 2:51 PM [facility] Internal Medicine [address] [place] [address] [place] [address] OFFICE VISIT Date of Service: 11/10/17 MR#: [id number] Acct: [id number] Name: DENNIS LUIS Rep #: [id number] : 1965 Provider: Chino Calabrese DO Age/Sex: 52/M Location: [facility] Status: Signed Intake Vital Signs11/10/17 Height 5 ft 4.5 in 11/10/17 Weight: 183 lb 11/10/17 Body Mass Index (BMI) 30.9 11/10/17 Blood Pressure 170/108 Intake Visit Reasons: BACK PAIN Chief Complaint: back pain Is patient in pain?: Yes (Back) Pain scale (1-10): 10 Allergies No Known Allergies Allergy (Unverified 11/10/17 13:38) Medications aspirin 81 mg tablet,delayed release 81 mg PO QDAY 11/10/17 [History Confirmed 11/10/17] tramadol 50 mg tablet 50 mg PO Q6H #30 tab 11/14/17 [Rx] Nurse's Note: Pt states that he is on BP meds but doesn't know the name of them PFSH Medical History High cholesterol (Chronic) High blood pressure (Chronic) Surgical History History of hernia repair (Acute) Family History Mother Cancer Sister Diabetes Brother Diabetes Social History Smoking Status: Never smoker alcohol intake: current alcohol intake frequency: holidays/special occasions only Alcohol type: beer substance use type: does not use what type of physical activity do you participate in: none HPI HPI Chief Complaint: back pain Details: DENNIS LUIS, is a 52 M who presents to the office today for back pain, when he goes to walk looses control over his legs. ROS Const Constitutional: No chills, fatigue, fever(s), frequent falls, malaise, weakness, sleep problems or change in appetite Eyes Eyes: No blurry vision, change in vision, double vision, discharge or visual disturbances ENT ENT: No abnormal hearing, ear pain, ear pressure, tinnitus or dizziness/vertigo Resp Respiratory: Positive for cough (occassional); no shortness of breath or wheezing Cardio Cardiology: No chest pain at rest, chest pain with exertion, shortness of breath, dyspnea on exertion, generalized swelling, irregular heart rhythm, lightheadedness, orthopnea, fast heart rate or palpitations Gastro GI: No abdominal pain, change in bowel habits, constipation, diarrhea, nausea/dyspepsia or vomiting Genitourinary Male: No difficulty urinating, burning urination, painful urination, urinary incontinence, urinary frequency, urinary urgency, urinary hesitancy, urinary retention, blood in urine, Frequent nighttime urination/ nocturia, sexual problems, testicle lump or testicle pain Musc Musculoskeletal: Positive for joint pain (Bilat hips) and back pain; no joint swelling, limited range of motion, muscle weakness, numbness or tingling Skin Skin: No change in skin color, itching, rash or wounds Breast Breast: No breast lump or breast pain Neuro Neurology: No frequent falls, weakness, abnormal hearing, numbness, tingling, unsteady gait/balance, dizziness, loss of vision, memory loss or visual disturbances Psych Psychiatric: No memory loss, No anxiety, No change in appetite, No depression, No Thoughts of harming yourself/Others Endo Endocrine: No fatigue, heat intolerance, increased thirst/drinking, increased hunger or increased urination Aller/Imm Allergy/Immunologic: No wheezing, itchy eyes or seasonal allergy symptoms Matt/Lymp Hematologic/Lymphatic: No easy bleeding, easy bruising or enlarged lymph nodes Exam Const General: cooperative, in distress Resp Effort AND Inspection: normal respiratory effort Auscultation: Bilateral: Clear to Auscultation Cardio Rate: regular rate Rhythm: regular rhythm Musc Musculoskeletal: No muscle weakness Thoracic/Lumbar Spine: thoraco-lumbar ROM limited (Pt. appears in severe distress, unable to walk upright.), pain with thoraco-lumbar ROM, paraspinal tenderness Neuro General: deep tendon reflexes 2+ bilaterally, unable to assess gait Assessment AND Plan Problems 1. Spinal stenosis of lumbar region with neurogenic claudication M48.062 Plan This is a patient who I saw was in considerable distress he really is unable to stand very easily and cannot walk very far without feeling like his legs are going to collapse when he flexes forward it relieves some of his symptomatology and he really does not have a whole lot of trouble sitting so it seems like this situation is typical spinal stenosis. I am going to get an MRI of the spine to see if he needs referral to a spinal surgeon or to physical therapy or to both. Orders Orders: Coding Level of Care Code Off vis,est,level 3 Diagnoses Spinal stenosis of lumbar region with neurogenic claudication M48.062 Neurogenic claudication status: with neurogenic claudication Spinal region: lumbar 11/17/17 1451 <Electronically signed by Chino Calabrese DO> Date Chino Calabrese DO Cosigner Signature: Date (if applicable) CC: ALLERGIES ALLERGIES DATE TYPE / CODE NAME / CODE REACTION SEVERITY SOURCE 06/23/2018 Drug No Known Unknown [facility] Allergy/4160 Allergies/F00 [facility] 06246(SNOMED 9138529(RXNOR Repository CT) M) ENCOUNTERS ENCOUNTERS ADMIT/DISCHARGE ACCOUNT NUMBER ADMITTING ENCOUNTER LOCATION SOURCE CLASS 07/05/2018/07/07/20 [id number] Barbara, Inpatient [place] [facility] Thad Encounter [facility] ding:[id number] Repository : [id number]: 1 07/03/2018/07/03/20 [id number] Ambulatory [address] ding:PT Repository 06/29/2018/06/29/20 [id number] Ambulatory BMSBuilding: [place] [facility] BMS.[facility] Repository 06/06/2018/06/06/20 [id number] Ambulatory BMSBuilding: [place] [facility] BMS.[facility] Repository 04/19/2018/04/21/20 [id number] Barbara, Inpatient [facility] Thad Encounter [facility] ding:[id number] Repository : BP224Mpe: 1 04/07/2018 [id number] Ambulatory BMSBuilding: [facility] Repository 03/29/2018/03/29/20 [id number] Ambulatory BMSBuilding: [place] [facility] BMS.[facility] Repository 03/12/2018/03/12/20 [id number] Emergency [address] ding:ED Repository 03/11/2018/03/11/20 [id number] Emergency BBuilding:GALA [facility] [address] [place] [address] Repository 02/21/2018 [id number] Ambulatory BMSBuilding: [facility] BMS.[facility] Repository 01/30/2018 [id number] Ambulatory [facility] ding:MRI Repository 01/24/2018 [id number] Ambulatory [facility] ding:HPRAD Repository 01/24/2018/01/25/20 [id number] Ambulatory BMSBuilding: [place] [facility] BMS.[facility] Repository 11/18/2017 [id number] Ambulatory [facility] ding:MRI Repository 11/10/2017/11/11/19 [id number] Ambulatory BMSBuilding: [place] [facility] BMS.[facility] Repository PAYERS PAYERS ENCOUNTER GUARANTOR PAYER SUBSCRIBER SOURCE 07/05/2018 DENNIS Buckley Primary DENNIS Jacob [id number] N Insurance:ANTHEMPolicy WILSONDOB: [facility] Number: [id number] [id number] Repository [address]Dwt: (330) Date:6129-13-86QX [phone] () [id number], [place] [address]EF: 07/05/2018 Secondary NOT GIVENUNK [place] Insurance:SELF PAY [facility] Number: Effective Repository Date:2018-06-01 07/03/2018 DENNIS R Primary DENNIS R [place] [id number] N Insurance:ANTHEMPolicy WILSONDOB: [facility] Number: [id number] [place], [place] [id number] Repository [address]Jpc: (330) Date:8158-47-08JI [phone] () 520671XMNOFAD, [place] [address]OA: 07/03/2018 Secondary NOT GIVENUNK [place] Insurance:SELF PAY [facility] Number: Effective Repository Date:2018-05-04 06/29/2018 DENNIS R Primary DENNIS R [place] [id number] N Insurance:ANTHEMPolicy WILSONDOB: [facility] Number: [id number], [place] [id number] Repository [address]May: (330) Date:1829-21-04QA [phone] () [id number] [place] [address]VL: 06/29/2018 Secondary NOT GIVENUNK [place] Insurance:SELF PAY [facility] Number: Effective Repository Date:2018-06-29 06/06/2018 DENNIS R Primary DENNIS R [place] [id number] N Insurance:ANTHEMPolicy WILSONDOB: [facility] Number: [id number] [place], [place] [id number] Repository [address]Fly: (330) Date:7988-07-94WX [phone] () [id number], [place] [address]XK: 06/06/2018 Secondary NOT GIVENUNK [place] Insurance:SELF PAY [facility] Number: Effective Repository Date:2018-06-06 04/19/2018 DENNIS R Primary DENNIS R [place] [id number] N Insurance:ANTHEMPolicy WILSONDOB: [facility] Number: [id number] [place], [place] [id number] Repository [address]Bhm: (330) Date:4515-84-11SX [phone] () [address] [place] [address]XL: 04/19/2018 Secondary NOT GIVENUNK [place] Insurance:SELF PAY [facility] Number: Effective Repository Date:2018-03-28 04/07/2018 DENNIS R Primary DENNIS R [place] [id number] N Insurance:ANTHEMPolicy WILSONDOB: [facility] Number: [id number] [place], [place] [id number] Repository [address]Kiv: (330) Date:1117-28-90LK [phone] () [address] [place] [address]OP: 04/07/2018 Secondary NOT GIVENUNK [place] Insurance:SELF PAY [facility] Number: Effective Repository Date:2018-04-07 03/29/2018 DENNIS R Primary DENNIS R [place] [id number] N Insurance:ANTHEMPolicy WILSONDOB: [facility] Number: [id number] City, [place] [id number] Repository [address]Pal: (330) Date:4698-86-94NB [phone] () [address] [place] [address]99[address]BX: 03/29/2018 Secondary NOT GIVENUNK [place] Insurance:SELF PAY [facility] Number: Effective Repository Date:2018-03-29 03/12/2018 DENNIS R Primary DENNIS R [place] [id number] N Insurance:ANTHEMPolicy WILSONDOB: [facility] Number: [id number] [place], [place] [id number] Repository [address]Cjc: (330) Date:9106-58-14KF [phone] () [id number] [place] [address]ME: 03/12/2018 Secondary NOT GIVENUNK [place] Insurance:SELF PAY [facility] Number: Effective Repository Date:2018-03-12 03/11/2018 DENNIS R Primary DENNIS R [facility] WILSONDOB: Insurance:ANTHEM BLUE WILSONDOB: [facility] [employer] [id number] Repository [place] Number: [address] [place], [place] [id number] [place], [place] [address]Tpy: ([phone]) Date:2018-03-11 27473Tjt: [id number] [phone] ()Tel: (330) Name:O [address] () () [id number] [place] [phone] () [address]RM: 02/21/2018 DENNIS R Primary DENNIS R [place] [id number] N Insurance:ANTHEMPolicy WILSONDOB: [facility] Number: [id number] [place], [place] [id number] Repository [address]Qsg: (330) Date:9272-51-76CV [phone] () [address] [place] [address] [place] [address]SJ: 02/21/2018 Secondary NOT GIVENUNK [place] Insurance:SELF PAY [facility] Number: Effective Repository Date:2018-02-21 01/30/2018 DENNIS R Primary DENNIS R [place] [id number] N Insurance:ANTHEMPolicy WILSONDOB: [facility] Number: [id number] [place] [id number] Repository [address]Yua: (330) Date:6657-04-69NI [phone] () [id number], [place] [address]TK: 01/30/2018 Secondary NOT GIVENUNK [place] Insurance:SELF PAY [facility] Number: Effective Repository Date:2018-01-25 01/24/2018 DENNIS R Primary DENNIS R [place] [id number] N Insurance:ANTHEMPolicy [facility] Number: [id number] [id number] Repository [address]Aex: (330) Date:2866-71-08CX [phone] () [id number], [place] [address]PJ: 01/24/2018 Secondary NOT GIVENUNK [place] Insurance:SELF PAY [facility] Number: Effective Repository Date:2018-01-24 01/24/2018 DENNIS R Primary DENNIS R [place] [id number] N Insurance:ANTHEMPolicy WILSONDOB: [facility] Number: [id number], [place] [id number] Repository [address]Nsm: (330) Date:4556-74-09ZB [phone] () 366276EVLXLDG, [place] [address]ON: 01/24/2018 Secondary NOT GIVENUNK [place] Insurance:SELF PAY [facility] Number: Effective Repository Date:2017-11-22 11/18/2017 DENNIS R Primary DENNIS R [place] [id number] N Insurance:ANTHEMPolicy WILSONDOB: [facility] Number: [id number] [place], [place] [id number] Repository [address]Wgn: (330) Date:9963-58-34TS [phone] () 817105XTBGCXP, [place] [address]RX: 11/18/2017 Secondary NOT GIVENUNK [place] Insurance:SELF PAY [facility] Number: Effective Repository Date:2017-11-10 11/10/2017 DENNIS R Primary DENNIS R [place] [id number] N Insurance:ANTHEMPolicy WILSONDOB: [facility] Number: [id number] [place], [place] [id number] Repository [address]Mtu: (330) Date:6289-13-27WM [phone] () [id number] SAM [address]CS: 11/10/2017 Secondary NOT GIVENUNK [place] Insurance:SELF PAY [facility]: Effective Repository Date:2017-11-09
== END 2018-07-07 11:52 | disposition home or self-care (01) | DRG 470 ==
LOC: ACINP 05:29 → MS3 07:38
PROVIDERS: Admitting Provider Specialist; Family Provider Family Medicine; PCP Family Medicine; Referring Provider Specialist; Visit Provider Specialist
PROC: 0SR904A Replacement of Right Hip Joint with Ceramic on Polyethylene Synthetic Substitute, Uncemented, Open Approach (ICD-10-PCS; CPT 27284; principal; 2018-07-05 06:50)
DX: M16.11 Unilateral primary osteoarthritis, right hip (principal); Z87.891 Personal history of nicotine dependence; Z96.642 Presence of left artificial hip joint; I10 Essential (primary) hypertension; E66.3 Overweight; Z68.31 Body mass index [BMI] 31.0-31.9, adult
CPT/HCPCS: 36415; 73501; 73502; 76000; 80048; 85025; 85027; 87081; 97110; 97161; 97165; 97530; 97535; 97802; 99251; C1776; J7120; G0463; J2405

== ENCOUNTER → 2018-12-20 | Outpatient (CLI) | payer BC, SELFPAY ==
[2018-11-29 09:23] VITALS: BMI 32.0
[2018-12-20 12:24] LABS: Hematocrit 37.3 % (40-54); Hemoglobin 12.7 g/dl (13.0-16.5); Mean Corpuscular Hgb 23.4 pg (27.0-32.0); Mean Corpuscular Volume 68.7 fL (80-94); Mean Platelet Vol. 11.2 fl (6.2-12.0); Platelet Count 343 K/mm3 (150-450); RBC Distribution Width CV 16.3 % (11.6-14.6); Red Blood Count 5.43 M/mm3 (4.6-6.2); White Blood Count 5.5 K/mm3 (4.4-11.0)
[2018-12-20 12:25] LABS: Scan Indicated on CBC? Y/N NO
[2018-12-20 12:42] LABS: ALB/GLOB Ratio 0.9 RATIO (0.9-2.4); AST(SGOT) 30 U/L (15-37); Alanine Aminotransfer ALT/SGPT 32 U/L (16-61); Albumin, Serum 3.8 g/dL (3.2-5.0); Alkaline Phosphatase 125 U/L (45-117); Anion Gap 10 (5-15); BUN 16 mg/dL (7-18); BUN/Creat Ratio 18.1 RATIO (10-20); Calcium,Total 9.1 mg/dL (8.5-10.1); Chloride 99 mmol/L (98-107); Cholesterol 237 mg/dL (200); Creatinine, Serum 0.88 mg/dL (0.70-1.30); EST Glomerular Filtration Rate 95 mL/min (>60); Est Glom Filt Rate - Afr Amer 115 mL/min (>60); Globulin 4.2 g/dL (2.2-4.2); Glucose 87 mg/dL (74-106); High Density Lipoprotein 64 mg/dL; PSA,Total - Annual Screen 0.96 ng/mL (0.00-4.00); Potassium 3.5 mmol/L (3.5-5.1); Sodium Level 136 mmol/L (136-145); Thyroid Stim Hormone (TSH) 1.55 uIU/mL (0.358-3.74); Triglycerides 93 mg/dL; Very Low Density Lipoprotein 19 mg/dL (5-40)
== END | disposition home or self-care (01) ==
LOC: BIMLAB 08:04
PROVIDERS: Family Provider Family Medicine; PCP Family Medicine; Visit Provider Nurse Practitioner Family
DX: I10 Essential (primary) hypertension (principal); E78.00 Pure hypercholesterolemia, unspecified; Z12.5 Encounter for screening for malignant neoplasm of prostate
CPT/HCPCS: 36415; 80053; 80061; 84153; 84443; 85027; G0103

== ENCOUNTER → 2019-04-11 09:12 | Outpatient (CLI) | payer BC, SELFPAY ==
[2019-04-11 08:40] VITALS: BMI 32.1
[2019-04-11 12:40] LABS: ALB/GLOB Ratio 0.9 RATIO (0.9-2.4); AST(SGOT) 23 U/L (15-37); Alanine Aminotransfer ALT/SGPT 27 U/L (16-61); Albumin, Serum 3.6 g/dL (3.2-5.0); Alkaline Phosphatase 94 U/L (45-117); Amylase 44 U/L (25-115); Anion Gap 8 (5-15); BUN 21 mg/dL (7-18); BUN/Creat Ratio 20.4 RATIO (10-20); Calcium,Total 8.8 mg/dL (8.5-10.1); Chloride 103 mmol/L (98-107); Creatinine, Serum 1.03 mg/dL (0.70-1.30); EST Glomerular Filtration Rate 80 mL/min (>60); Est Glom Filt Rate - Afr Amer 97 mL/min (>60); Globulin 4.2 g/dL (2.2-4.2); Glucose 94 mg/dL (74-106); Lipase 143 U/L (73-393); Potassium 3.8 mmol/L (3.5-5.1); Protein, Total 7.8 g/dL (6.4-8.2); Sodium Level 140 mmol/L (136-145)
== END ==
PROVIDERS: Family Provider Family Medicine; PCP Family Medicine; Visit Provider Nurse Practitioner Family
DX: R10.11 Right upper quadrant pain (principal)
CPT/HCPCS: 36415; 80053; 82150; 83690

== ENCOUNTER → 2019-04-20 09:07 | Outpatient (CLI) | payer BC, SELFPAY ==
[2019-04-11 08:40] VITALS: BMI 32.1
--- NOTE | 2019-04-20 09:09 | US_ITS ---
STUDY: ABDOMINAL ULTRASOUND REASON FOR EXAM: Male, 53 years old. Pain TECHNIQUE: Transabdominal ultrasound was performed with real-time and static lara scale imaging. TECHNICAL QUALITY: Adequate. COMPARISON: None. FINDINGS: Liver: The liver measures 19 cm. There is normal echogenicity of the liver. The bile ducts are within normal limits. There is hepatic color flow. The direction of portal flow is hepatopetal. There is no demonstrated mass lesion. Portal vein measurement: Gallbladder: Normal distended gallbladder. The gallbladder wall measures 2.8 mm. There is a negative sonographic Wren's sign. There is no pericholecystic fluid. There are no gallstones. Common Bile Duct (C.B.D.): The common bile duct measures 4 mm. Pancreas: The pancreatic tail is somewhat heterogeneous in appearance. Consider CT or MRI correlation to further exclude pancreatitis or pancreatic mass. Spleen: Normal size of the spleen. The spleen measures 7.3 cm. Right Kidney: Normal size of the right kidney. The right kidney measures 10.8 x 4.9 x 4.3 cm. Normal renal cortex. The right cortex measures 1.7 cm. There is no demonstrated renal mass or cyst. There is no right hydronephrosis. Left Kidney: Normal size of the left kidney. The left kidney measures 11.5 x 6.5 x 4.9 cm. Normal renal cortex. The left cortex measures 2.3 cm. There is no demonstrated renal mass or cyst. There is no left hydronephrosis. Aorta: Normal I.V.C.: The IVC is patent. There is no ascites. US/Abdomen Complete IMPRESSION: The pancreatic tail is somewhat heterogeneous in appearance. Consider CT or MRI correlation to further exclude pancreatitis or pancreatic mass. Hepatomegaly. Normal common bile duct and gallbladder. Electronically Signed: Junior Ramirez MD at 16:59 EDT Tel , Service support ,
== END ==
PROVIDERS: Family Provider Family Medicine; PCP Family Medicine; Referring Provider Nurse Practitioner Family; Visit Provider Nurse Practitioner Family
DX: R10.11 Right upper quadrant pain (principal)
CPT/HCPCS: 76700

== ENCOUNTER → 2019-05-17 07:56 | Outpatient (CLI) | payer BC, SELFPAY ==
[2019-04-11 08:40] VITALS: BMI 32.1
--- NOTE | 2019-05-17 07:57 | CT_ITS ---
STUDY: CT ABDOMEN WITH AND WITHOUT CONTRAST REASON FOR EXAM: Male, 54 years old. UPPER ABD PAIN, ABNORMAL ULTRASOUND, NO PREV ABD SURG, HX-HTN, ATTN:PANCREAS RADIATION DOSAGE (If Supplied By Facility): CTDIvol = ( 10.6 ) mGy, DLP = ( 815.42 ) mGycm TECHNIQUE: Transaxial images were obtained pre and post I.V. administration of IV/Oral Isovue 300 100, and oral contrast. Sagittal and coronal images were reconstructed. Individualized dose optimization techniques were used for this CT. COMPARISON: None. FINDINGS: The visualized lung bases are unremarkable. The visualized portions of the heart are within normal limits. Normal liver. Normal gallbladder and extrahepatic biliary system. Normal spleen. Normal pancreas. Normal bilateral adrenal glands. Normal right kidney. Normal left kidney. Normal visualized stomach. Normal small intestine. Normal colon. The appendix is visualized and appears normal. Normal abdominal aorta. Normal inferior vena cava. Normal retroperitoneum. Normal abdominal wall. Normal osseous structures. CT/Abdomen W/WO IV Contrast IMPRESSION: Normal unenhanced and enhanced CT of the abdomen. No abnormal mass in the pancreas. Electronically Signed: Leandra Polk, at 2:58 EDT Tel , Service support ,
== END ==
PROVIDERS: Family Provider Family Medicine; PCP Family Medicine; Referring Provider Nurse Practitioner Family; Visit Provider Nurse Practitioner Family
DX: R10.9 Unspecified abdominal pain (principal)
CPT/HCPCS: 74170; Q9967

== ENCOUNTER 2019-05-23 08:30 | Outpatient (RCR) | payer BC, SELFPAY ==
[2019-01-10 08:35] VITALS: BMI 32.0
--- NOTE | 2019-03-13 09:01 | HP.PTEVAL ---
Patient's Visit Information DENNIS ANAYA is a 53 year old M referred to Physical Therapy by EVY Pierson with a diagnosis of Low Back Pain. Date of Evaluation: 03/13/19 Physical Therapist: Delmi Rosenthal DPT - Visit Plan Frequency: 2x /Week Duration: 4 Weeks Plan: Focus on LE and core s/s- review HEP with discussion on safety and efficacy of exercises. Lifting mechanics for work safety. Decreased ROM in right hip due to THR- using back to compensate- increasing pain. - Subjective Findings: Went to see the MD who reports spinal stenosis- wants him to go through rehab- PT and chiropractor. ACDF Mar 06, 2018- April 2018 had a left hip replacement and Jul 05 he had his right THR. Had rehab for his neck which is great and has been cleared. Left hip is good still needs some strength but the right one is not as good. It is starting to calcify and decrease his ROM- could have another surgery to clean it out. But he is experiencing spinal stenosis in his back- but his hip doctor things it maybe his back or hip. plan is 6 weeks of PT then MRI of the spine. The back pain comes and goes and is coming more frequently. Agg: lifting weights Worst: 10/10 Eases: stretching- bending forwards temporarily better. Never painfree something always bothers him. Pain is located in the tailbone and the belt line. Does have radiating pain down the hamstring on the left side. The right hip has pain in the anterior with groin pain. No pain past the knees. Describes the pain as stabbing in the back- hamstring is pulled muscle- dull and achy. No N/T in the toes. No change in bowel/bladder. Works out 4-5x a week- free weight and machines- more reps than heavy weights- very little lower body- focuses on upper body. Has had x-rays of the spine but no MRI at this time. 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 Sleep: not disturbed- side sleeper. PMhx: HTN Meds: 3 blood pressure meds, cholesterol medication. Is not currently seeing a chiropractor. - Objective Posture: Standing: slight bend in knees bilaterally, FH, RS, increased kyphosis- increased muscle mass left>right throughout paraspinals of the thoracic and lumbar region. Sitting: FH, RS- could not correct with verbal or tactile cues. Gait: antalgic- slow alexander. decreased stance on the right LE- short stride does not achieve full knee extension. SLS: 5 seconds on the left and 3 on the right then LOB. HR/TR: WFL. ROM: Lumbar: flexion- hand to feet, Extn: decreaseed by 50% compensation with thoracic spine, Rotation: decreased by 50% bilaterally SB: WFL. Left Hip: WFL, Right Hip: flexion to 90 degrees, abd/add: WFL, Extn: decreased by 75%. Knee/Ankle: WFL. Strength: Core:fair minus, Hip: Right: flex/extn: 4-/5, IR/ER at neutral: 4-/5, Abd in s/l: 4/5 Left: 4+/5 throughout all motions. Knee extn: 5/5, Flexion: 4/5.Ankle: 5/5 bilaterally. Flex: HS: no restriction, Quad: mild. Sensation/Reflex: diminished on the right. Special Test: LLD: left is shorter than right Pelvic Alignment: WFL, Dural Signs:negative bilaterally - Goals Goal 1:: Patient will be I with HEP and progression Goal Time Frame: 4-6 Weeks Goal 2:: Patient will maintain upright standing posture w/o VC's to demo increased core s/s Goal Time Frame: 4-6 Weeks Goal 3:: Patient will lift floor to waist #25 X10 with no increase in s/s Goal Time Frame: 4-6 Weeks Goal 4:: Patient will demo 4+/5 strength in LE Goal Time Frame: 4-6 Weeks - Rehabilitation Potential Physical Therapy Diagnosis: Patient presents with hypomobility- he has decreased painfree ROM, strength and muscular endurance leading to incresed pain and decreased ability to perform ADL's/work. Rehabilitation Potential: Fair - Anticipated Interventions Patient/Client Instruction: Educate patient on: Benefits of Fitness Program Therapeutic Exercise to Include: Strength training, Endurance training, Balance training, Coordination, Agility training, Body mechanics, Postural training, Flexibilty training, Gait and locomotor training, Dynamic Lumbar Stabilization For the Purpose of:: To improve muscle performance and motor function TENS: Yes Cryotherapy (ice pack, ice massage): Yes Thermo therapy (hot pack): Yes Ultrasound (thermal/non thermal): Yes - Back only Thank you for the opportunity to evaluate your patient. For Medicare and Medicare HMO plans, please review the plan of care and approve it. It will need to be FAXED BACK to us at [phone] for Medicare purposes. For Medicare only, by signing this I certify the plan of care. Please let me know if there are questions or concerns regarding this plan of care. Physician Signature: Date:
--- NOTE | 2019-04-13 11:44 | HP.PTREVAL ---
Socorro Jones, SHANDRA-C, It has been my pleasure to treat DENNIS ANAYA over the last 8 visits for Low Back Pain. Please see the progress note below for an update on the physical therapy plan of care! Subjective: Pt. feels therapy has been going well, but feels he is not there yet. Feels he finally understands his condition and is motivated as ever to cont. working at home. Objective/Function: Posture: Standing: slight bend in knees bilaterally, FH, RS, increased kyphosis- increased muscle mass left>right throughout paraspinals of the thoracic and lumbar region. Sitting: Improved posture, still cannot maintain. Gait: antalgic- slow alexander. decreased stance on the right LE- short stride does not achieve full knee extension. Slight L trunk rotation > R. SLS: 15 seconds on the left and 15 on the right - no pain just tightness in the lower back. HR/TR: WFL. ROM: Lumbar: flexion- hand to feet, Extn: decreaseed by 50% compensation with thoracic spine, Rotation: decreased by 50% bilaterally SB: WFL. Left Hip: WFL, Right Hip: flexion to 90 degrees, abd/add: WFL, Extn: decreased by 75%. Knee/Ankle: WFL. Strength: Core:fair, Hip: Right: flex/extn: 4-/5, IR/ER at neutral: 4-/5, Abd in s/l: 4-/5 Left: 4+/5 throughout all motions. Knee extn: 5/5, Flexion: 4/5.Ankle: 5/5 bilaterally. Flex: HS: no restriction, Quad: mild. Sensation/Reflex: diminished on the right. Special Test: LLD: left is shorter than right Pelvic Alignment: WFL, Dural Signs:negative bilaterally Plan Plan: 04/13/19 - 4 more weeks of therapy (60 min. tx sessions) to further progress core/glute strength/stabilization & correct lower cross muscle imbalances - postural education & lifting mechanics education as needed. Cont. to progress as tolerated. Goals Goal 1:: Patient will be I with HEP and progression Goal Time Frame: 4-6 Weeks Goal Progress: Progressing Goal 2:: Patient will maintain upright standing posture w/o VC's to demo increased core s/s Goal Time Frame: 4-6 Weeks Goal Progress: Progressing Goal 3:: Patient will lift floor to waist #25 X10 with no increase in s/s Goal Time Frame: 4-6 Weeks Goal Progress: Progressing Goal 4:: Patient will demo 4+/5 strength in LE Goal Time Frame: 4-6 Weeks Goal Progress: Progressing Anticipated Interventions Patient/Client Instruction: Educate patient on: Benefits of Fitness Program Therapeutic Exercise to Include: Strength training, Endurance training, Balance training, Coordination, Agility training, Body mechanics, Postural training, Flexibilty training, Gait and locomotor training, Dynamic Lumbar Stabilization For the Purpose of:: To improve muscle performance and motor function TENS: Yes Cryotherapy (ice pack, ice massage): Yes Thermo therapy (hot pack): Yes Ultrasound (thermal/non thermal): Yes - Back only Please do not hesitate to contact me at [phone] by phone or if you have questions or concerns regarding this new plan of care! Sincerely, Delmi Rosenthal DPT
--- NOTE | 2019-07-12 13:07 | HP.PT.NRP ---
HP - Discharge Summary (1) - Patient Information DENNIS ANAYA was seen in my office for initial evaluation on 03/13/19. The following Plan of Care was established for this patient: Initial Frequency: 2x /Week Initial Duration: 4 Weeks - Anticipated Interventions Patient/Client Instruction: Educate patient on: Benefits of Fitness Program Therapeutic Exercise to Include: Strength training, Endurance training, Balance training, Coordination, Agility training, Body mechanics, Postural training, Flexibilty training, Gait and locomotor training, Dynamic Lumbar Stabilization For the Purpose of:: To improve muscle performance and motor function TENS: Yes Cryotherapy (ice pack, ice massage): Yes Thermo therapy (hot pack): Yes Ultrasound (thermal/non thermal): Yes - Back only This patient was last seen in our office . Pertinent comments regarding their Physical therapy will appear below: Patient has not attended Physical Therapy in over 4 weeks, appropriate for d/c at this time and return to MD for further evaluation as needed. At this point I will be discontinuing this patient from physical therapy. I would be happy to see this patient again in the future if found appropriate by the physician. Thank you! RAFAEL ValenciaT
== END 2019-05-23 19:00 | disposition home or self-care (01) ==
LOC: PT 08:30
PROVIDERS: Family Provider Family Medicine; PCP Family Medicine; Referring Provider Nurse Practitioner; Visit Provider Nurse Practitioner
DX: M54.5 Low back pain (principal)
CPT/HCPCS: 97110; 97162; 97164

== ENCOUNTER 2019-06-16 15:28 | Observation (INO) | payer BC, SELFPAY ==
[2019-04-11 08:40] VITALS: BMI 32.1
[2019-06-16] VITALS (7 sets, daily range): BP systolic 143–172; BP diastolic 78–99; PULSE 72–108; RESP 16–19; TEMP 36.7–37.4; O2SAT 96–100; BMI 30.3; BMI 30.2
--- NOTE | 2019-06-16 15:52 | CT_ITS ---
STUDY: CT ABDOMEN AND PELVIS WITHOUT CONTRAST REASON FOR EXAM: Male, 54 years old. Rectal pain. Foreign body in the rectum RADIATION DOSAGE (If Supplied By Facility): CTDIvol = ( 14.33 ) mGy, DLP = ( 787.93 ) mGycm TECHNIQUE: Transaxial images were obtained from the dome of the diaphragm to the symphysis pubis without oral contrast, and without intravenous contrast. Sagittal and coronal images were reconstructed. Individualized dose optimization techniques were used for this CT. COMPARISON: 05/17/2019 FINDINGS: The visualized lung bases are unremarkable. The visualized portions of the heart are within normal limits. Normal liver. Normal gallbladder and extrahepatic biliary system. Normal spleen. Normal pancreas. Normal bilateral adrenal glands. Normal right kidney. Normal left kidney. Normal visualized stomach. Normal small intestine. Within the rectosigmoid colon, there is a elongated presumed bottle measuring 26 cm in total length. Roughly 5.7 cm wide. There is air-fluid level within the foreign object suggesting internal contents. Metallic tip. Remainder of the colon is within normal limits. No evidence of free air in the abdomen or pelvis to suggest perforation. The appendix is visualized and appears normal. Normal abdominal aorta. Normal inferior vena cava. Normal retroperitoneum. Normal urinary bladder. Unremarkable prostate Normal abdominal wall. Bilateral hip arthroplasty CT/Abdomen/Pelvis W IV Cont ONLY IMPRESSION: Foreign object in the rectosigmoid colon which is likely a bottle with a metallic tip. No evidence of bowel perforation or free air within the abdomen or pelvis. There appears to be internal contents within this bottle. Electronically Signed: Charanjit Mckeon DO at 18:07 EST Tel , Service support ,
[2019-06-16] MEDS: Morphine 4 MG/ML Syringe IV (16:35)
[2019-06-16] MEDS: Ondansetron 4 MG/2 ML Vial IV (16:35)
[2019-06-16] MEDS: 0.9% Normal Saline 1,000 ML 150 ML IV (16:35)
[2019-06-16 16:39] LABS: Absolute Lymphocyte Count 1.47 X10^3/uL (0.83-4.51); Absolute Neutrophil Count 8.1 X10^3/uL (2.0-7.7); Basophil# 0.06 X10^3/uL; Basophil% 0.6 % (0-1); Eosinophil# 0.05 X10^3/uL; Eosinophils% 0.5 % (0-5); Hematocrit 39.1 % (40-54); Lymphocyte # 1.47 X10^3/ul (4.0); Lymphocyte % 14.4 % (19-41); Mean Corp Hgb Conc 33.2 g/dL (32-36); Mean Corpuscular Hgb 23.2 pg (27.0-32.0); Mean Corpuscular Volume 69.8 fL (80-94); Mean Platelet Vol. 10.1 fl (6.2-12.0); Monocyte# 0.47 X10^3/uL; Monocyte% 4.6 % (0-10); NRBC Flagged by Analyzer 0 % (0-5); Neutrophil # 8.14 X10^3/uL (2.7-7.7); Neutrophil % 79.6 % (47-70); Platelet Count 306 K/mm3 (150-450); White Blood Count 10.2 K/mm3 (4.4-11.0)
[2019-06-16 16:49] LABS: Anion Gap 11 (5-15); BUN 9 mg/dL (7-18); BUN/Creat Ratio 9.7 RATIO (10-20); Calcium,Total 9.2 mg/dL (8.5-10.1); Chloride 103 mmol/L (98-107); Creatinine, Serum 0.93 mg/dL (0.70-1.30); EST Glomerular Filtration Rate 90 mL/min (>60); Est Glom Filt Rate - Afr Amer 108 mL/min (>60); Estimated Creatinine Clearance 75.15 ml/min; Glucose 86 mg/dL (74-106); Potassium 3.5 mmol/L (3.5-5.1); Sodium Level 139 mmol/L (136-145)
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
[2019-06-16 17:32] LABS: Prothrombin Time (Protime)PT. 13.3 SECONDS (11.7-14.9)
[2019-06-16 17:42] LABS: Partial Thromboplast Time 24.5 Seconds (24.1-36.2)
--- NOTE | 2019-06-16 17:43 | EKG12_ITS ---
Test Reason : PRE OP Blood Pressure : / mmHG Vent. Rate : 087 BPM Atrial Rate : 087 BPM P-R Int : 160 ms QRS Dur : 100 ms QT Int : 344 ms P-R-T Axes : 049 -38 042 degrees QTc Int : 413 ms Normal sinus rhythm Left axis deviation Abnormal ECG Confirmed by NETTA BADILLO, BUSHRA ([id number]), offline editor RICHARD DRAPER ([id number]) on 06/18/2019 2:46:10 PM Referred By: Jose Casey Confirmed By:BUSHRA CHADWICK MD
--- NOTE | 2019-06-16 17:58 | PCM.HP.STD ---
Problem List (1) Foreign body of rectum Status: Acute Qualifiers: Encounter type: initial encounter Qualified Code(s): T18.5XXA - Foreign body in anus and rectum, initial encounter History of Present Illness Date of Admission: 06/16/19 The patient is a 54 year old M who presents with a foreign body in the rectum. At approximately 10:00 last night he was involved in sexual intercourse and a large cylinder was inserted into his rectum. He has been unable to remove the object. He notes bleeding. He notes generalized abdominal pain. He denies any significant medical problems. He has had prior orthopedic surgeries with no difficulties with anesthesia. CT scan of the abdomen was performed which shows this large cylindrical foreign body most likely a male penis enlargement pump in his rectum and extending at least 20 cm in length and more than likely 5-1/2 cm in width. There is no free air identified. Past Medical History Past Medical History (Chronic Problems): Chronic Problems (Last Reviewed 04/11/19 @ 08:40 by Tiffany Joseph) Abdominal pain (Chronic) Hyperlipidemia (Chronic) High cholesterol (Chronic) High blood pressure (Chronic) Medical History: Medical History (Last Reviewed 06/16/19 @ 18:01 by Jose Casey MD) High cholesterol (Chronic) E78.00 High blood pressure (Chronic) I10 Allergies No Known Allergies Allergy (Verified 06/16/19 15:28) Home Medications: Ambulatory Orders Medication Instructions Recorded amlodipine 10 mg tablet 10 mg PO QDAY #90 tab 03/20/19 losartan 50 mg tablet 50 mg PO DAILY #90 tab 04/11/19 trazodone 100 mg tablet 100 mg PO DAILY PRN #90 tab 06/07/19 Surgical History: Surgical History (Last Reviewed 06/16/19 @ 18:01 by Jose Casey MD) History of cervical spinal surgery Z98.890 03/06/18 History of hernia repair Z98.890, Z87.19 2004 History of total left hip replacement Z96.642 04/19/2018 History of total right hip replacement Z96.641 07/05/18 Smoking Status: Never smoker - *Family History Maternal Family History: Family History (Last Reviewed 06/16/19 @ 18:01 by Jose Casey MD) Mother Cancer Sister Diabetes Brother Diabetes Review of Systems Constitutional: Denies: Chills, Fever, Weight Change Eyes: Denies: Blurred vision, Pain, Redness, Vision Change HEENT: Denies: Dysphasia, Ear Pain, Eye Pain, Head Aches, Hearing Changes, Sore Throat Cardiovascular: Denies: Chest Pain, Chest Pressure, Chest Tightness, Palpitations Respiratory: Denies: Cough, Hemoptysis, Shortness of breath at rest, Shortness of breath upon exertion, Wheezing Gastrointestinal: Reports: Abdominal Pain, - - And has been having some rectal bleeding.. Denies: Nausea, Vomiting Genitourinary: Reports: Urgency Musculoskeletal: Denies: Joint Pain VTE Information - Inpt Only VTE Present on Admission: No VTE Mechan Device Prophylaxis: SCD's VTE Pharm Prophylaxis ordered?: No Reason prophylaxis not ordered:: Treatment Not Indicated Patient Problems: Active and Suspected Problems (Last Reviewed 04/11/19 @ 08:40 by Tiffany Joseph) Foreign body of rectum (Acute) - Physical Exam Vitals/I&O's: Vital Signs Temp Pulse Resp BP Pulse Ox 98.2 F 105 H 18 170/99 H 97 06/16/19 15:29 06/16/19 15:29 06/16/19 15:29 06/16/19 15:29 06/16/19 15:29 Oxygen Delivery Method Room Air Weight: 176 lb 9.444 oz Body Mass Index (BMI) 30.3 General: Alert, Oriented x3 HEENT: Atraumatic, PERRLA, EOMI, Normocephalic Oral: Moist Mucosa Neck: Supple, No JVD Lungs: Clear to auscultation Cardiovascular: Regular rate, Regular Rhythm, No murmurs Abdomen: Soft, Tender, - - Patient has no rebound guarding or peritoneal irritation. He does have a significant amount of urgency which is secondary to his bladder being full and the foreign body extending superior to that Extremities: No clubbing, No cyanosis, No edema Laboratory Results 06/16/19 16:25: WBC 10.2, RBC 5.60, Hgb 13.0, Hct 39.1 L, MCV 69.8 L, MCH 23.2 L, MCHC 33.2, RDW Std Deviation 37.0, RDW Coeff of Ray 15.0 H, Plt Count 306, MPV 10.1, Immature Gran % (Auto) 0.300, Neut % (Auto) 79.6 H, Lymph % (Auto) 14.4 L, [place] % (Auto) 4.6, Eos % (Auto) 0.5, Baso % (Auto) 0.6, Absolute Neuts (auto) 8.1 H, Absolute Lymphs (auto) 1.47, Nucleated RBC % 0 06/16/19 16:25: Sodium 139, Potassium 3.5, Chloride 103, Carbon Dioxide 25.0, Anion Gap 11, BUN 9, Creatinine 0.93, Estim Creat Clear Calc 75.15, Est GFR (MDRD) Af Amer 108, Est GFR (MDRD) Non-Af 90, BUN/Creatinine Ratio 9.7 L, Glucose 86, Calcium 9.2 06/16/19 16:25: PT 13.3, INR 1.0, APTT 24.5 Current Medications Sodium Chloride () 1,000 mls @ 150 mls/hr IV .Q6H40M GWEN Last Admin: 06/16/19 16:35 Dose: 150 mls/hr Documented by: Assessment/Plan All Active Problems (Last Reviewed 04/11/19 @ 08:40 by Tiffany Joseph) Foreign body of rectum (Acute) Bronchitis (Acute) I am going to try to remove this foreign body through his rectum. If I am successful then I more likely going to keep him overnight just to make sure he does not have any peritoneal signs. I have told him though that if I am unsuccessful at doing this I am going to have to make a laparotomy incision and remove it by opening the intestines and pulling it out. He understands that by doing this there is a significant risk of infection. And that they are quite possibly could need to have a colostomy and/or an ileostomy. All questions asked were answered and he is willing to proceed.
--- NOTE | 2019-06-16 18:00 | FORE_PTH ---
PATIENT: DENNIS ANAYA LOC: [facility] U#:[id number] AGE/SX: 54/M ROOM: CT313 RE06/16/[address]: Dr. Jose Casey MD : 1965 BED: 1 DIS: 06/17/2019 SPEC #: [id number] RECD: 06/18/19 07:59 STATUS: GISELL REQ #: [id number] CARLI: 06/16/19 18:[address]: Jose Casey DEPT: SURGICAL PATHOLOGY RECD BY: Chapin Becerra ENTERED: 06/18/19 08:00 SP TYPE: FOREIGN B HOME DR: Dr. Danyel Calabrese, DO Tissues: FOREIGN BODY Procedures: Surgery Specimen Level I HEADER OPERATION: Foreign body removal PRE-OP DIAGNOSIS: Foreign body of rectum (acute) TISSUE SUBMITTED: Foreign body MICROSCOPIC DIAGNOSIS A foreign body (gross only). SJ:lolis 06/18/19 MICROSCOPIC DESCRIPTION Slides are reviewed. GROSS DESCRIPTION Received is one container labeled with the patient's name and designated foreign body. The specimen consists of a foreign body consisting of a clear, plastic cylinder with a condom stretched over it at the narrow end, measuring 23.5 cm in length and 5.5 to 6.5 cm in diameter. AT the narrow end it shows a metallic tip covered with the tape. The specimen is for gross identification only. / SJ:lolis 06/18/19 CPT: 01827
--- NOTE | 2019-06-16 18:33 | PCM.OPRPT ---
Problem List (1) Foreign body of rectum Status: Acute Qualifiers: Encounter type: initial encounter Qualified Code(s): T18.5XXA - Foreign body in anus and rectum, initial encounter Report of Operation Date of Procedure: 06/16/19 Pre-Operative Diagnosis: Foreign body of rectum Post-Operative Diagnosis: Same Surgery/Procedure Performed:: Removal of foreign body of rectum Type of Anesthesia:: General Anesthesiologist: Nader Garcia Specimen's removed: Male penile prosthetic pump Estimated Blood Loss (mL): < 25 cc Fluids Replaced: 1 L LR Description of Procedure: Patient was brought into the operating room placed in the supine position. Under excellent general anesthetic legs were placed up in stirrups placed above his abdomen. Digital rectal exam revealed the edge of the pump palpable. Perianal area was prepped and usual sterile fashion. I was able to grab the superior ring of the penile prosthetic I lifted that in an anterior direction I then was able to grab the posterior aspect of the ring of the pump with another Conrado clamp and then I was able to gently remove the pump. I inspected the pump there was a condom on the tip of the pump which was still intact no bare-metal was exposed although the very tip of it did have bare-metal. There was no foreign bodies left that I could palpate. I placed the tape into the rectum because there was some bleeding. This appeared to be just down where the rings were of the foreign body. This stopped after I had gentle pressure with the tape. I was attempting to do a rigid proctoscopy. However all of our rigid proctoscope's (only 2 were available) were malfunctioning. I made a decision at that point to leave some Gelfoam in his rectum place some air in his rectum and then obtain an upright and flat plate abdominal x-ray. I am going to keep the patient 24 hours to see if he develops any peritoneal signs in which case I will have to taken back to surgery and perform a laparoscopy on him. Although it was difficult removing the foreign body I do not think that he has any injury. I thought about calling in the endoscopy team however I thought since it came out so easy and I am going to keep him and observe him I will reexamine him tomorrow morning to make a determination of how he is doing. - Admit VTE Documentation VTE Present on Admission: No VTE Mechan Device Prophylaxis: SCD's VTE Pharm Prophylaxis ordered?: No Reason prophylaxis not ordered:: Treatment Not Indicated
[2019-06-16] MEDS: Lubricating Jelly 60 GM Tube 30 GM TOPICAL (18:39)
--- NOTE | 2019-06-16 19:22 | RAD_ITS ---
HISTORY: Foreign body removal from rectum. 2 views of the abdomen. Comparison study is a CT scan the abdomen and pelvis from 3 hours earlier. 4 images Findings: Excreted contrast is present within the urinary bladder. The foreign body from the rectum has been removed. Bowel gas pattern is normal. Bilateral total hip arthroplasties. Lung bases are clear. Heart is not enlarged. No free air is perceived. RAD/Abd Inc Decub and/or Erect IMPRESSION: Normal. Foreign body removal. No evidence of bowel perforation. at 0043 Reported and signed by: Chun Soto MD Electronically Signed: Chun Soto MD at 0:42 EST Tel , Service support ,
[2019-06-16] MEDS: Lactated Ringers 1,000 ML 100 ML IV (19:30)
[2019-06-16] MEDS: Losartan Potassium 50 MG Tablet PO (22:31)
[2019-06-16] MEDS: amLODIPine 10 MG Tablet PO (22:31)
[2019-06-17 00:22] VITALS: BP 150/77; PULSE 76; RESP 18; TEMP 37.1; O2SAT 95
[2019-06-17] MEDS: oxyCODONE 5 MG Tablet 10 MG PO (00:52)
[2019-06-17 05:00] VITALS: BP 150/77; PULSE 81; RESP 18; TEMP 36.8; O2SAT 96
[2019-06-17] MEDS: Lactated Ringers 1,000 ML 100 ML IV (05:10)
[2019-06-17 08:19] VITALS: BP 149/86; PULSE 69; RESP 18; TEMP 36.9; O2SAT 97
--- NOTE | 2019-06-17 08:58 | DCINST_ITS ---
Discharge Diet: Light diet - advance as tolerated Discharge Activity: May Not Drive - for 1 week or while taking narcotic pain medicine. May shower in (days): 1 Lifting Restrictions: 10 pounds Call your doctor if your incision/area has: Continuous Slow Oozing, Sudden Increased Bleeding, Increased Pain/ Swelling, Increased Redness, Foul Smelling Discharge Call your doctor if you observe: Fever of 101 or Higher Suture Line Care: Avoid Pulling/Pushing, Avoid Pinching/Bending Additional Dressing/Incision Instructions:: Change or remove dressing in 4 days. Leave steri-strips in place for 1 week. Allergies/Adverse Reactions: Allergies No Known Allergies Allergy (Verified 06/16/19 15:28) Medications to take at Discharge amlodipine 10 mg tablet 10 mg PO QDAY #90 tab 03/20/19 losartan 50 mg tablet 50 mg PO DAILY #90 tab 04/11/19 trazodone 100 mg tablet 100 mg PO DAILY PRN #90 tab 06/07/19 Primary Care Physician: Danyel Calabrese, [Primary Care Provider] - Test Results: Test results from this visit will be discussed in further detail at your follow- up appointment, if applicable. Please Follow Up With: Manuela Downs PA-C - [phone] When: Call to make an appointment to be seen in about 10 days.
[2019-06-17 10:00] VITALS: BP 149/86; PULSE 69; RESP 18; TEMP 36.9; O2SAT 97
== END 2019-06-17 10:00 | disposition home or self-care (01) ==
LOC: ED 15:51 → SDC 17:49 → AC 17:50 → SDC 19:48 → MS3 19:48
PROVIDERS: Admitting Provider Surgery; Emergency Provider Emergency Medicine; Family Provider Family Medicine; PCP Family Medicine; Referring Provider Surgery; Visit Provider Surgery
PROC: (CPT 45915; principal; 2019-06-16 18:00)
DX: T18.5XXA Foreign body in anus and rectum, initial encounter (principal); X58.XXXA Exposure to other specified factors, initial encounter; Y93.9 Activity, unspecified; Y92.9 Unspecified place or not applicable; E78.5 Hyperlipidemia, unspecified; I10 Essential (primary) hypertension; Z79.899 Other long term (current) drug therapy
CPT/HCPCS: 00902; 45915; 74019; 74177; 80048; 85025; 85610; 85730; 88300; 93005; 96361; 96374; 96375; 99218; 99282; J7120; Q9967; G0378; J2405

== ENCOUNTER → 2019-07-25 09:14 | Outpatient (CLI) | payer BC, SELFPAY ==
[2019-07-25 08:32] VITALS: BMI 30.2
[2019-07-25 12:16] LABS: Hemoglobin 12.8 g/dL (13.0-16.5); Mean Corp Hgb Conc 32.8 g/dL (32-36); Mean Corpuscular Hgb 23.6 pg (27.0-32.0); Mean Corpuscular Volume 71.8 fL (80-94); Mean Platelet Vol. 10.3 fl (6.2-12.0); Platelet Count 338 K/mm3 (150-450); RBC Distribution Width CV 16.3 % (11.6-14.6); RBC Distribution Width SD 40.9 fl (35.1-43.9); Red Blood Count 5.43 M/mm3 (4.6-6.2); White Blood Count 5.5 K/mm3 (4.4-11.0)
[2019-07-25 12:35] LABS: Vitamin B12 363 pg/mL (211-911)
== END ==
PROVIDERS: Family Provider Family Medicine; PCP Family Medicine; Visit Provider Nurse Practitioner Family
DX: R61 Generalized hyperhidrosis (principal); F10.10 Alcohol abuse, uncomplicated
CPT/HCPCS: 36415; 82607; 82746; 85027

== ENCOUNTER → 2019-08-24 08:32 | Outpatient (CLI) | payer BC, SELFPAY ==
[2019-07-25 08:32] VITALS: BMI 30.2
[2019-08-24 12:57] LABS: AST(SGOT) 25 U/L (15-37); Alanine Aminotransfer ALT/SGPT 31 U/L (16-61); Albumin, Serum 4.1 g/dL (3.2-5.0); Alkaline Phosphatase 95 U/L (45-117); Anion Gap 5 (5-15); BUN 15 mg/dL (7-18); BUN/Creat Ratio 15.1 RATIO (10-20); Calcium,Total 9.3 mg/dL (8.5-10.1); Chloride 101 mmol/L (98-107); Creatinine, Serum 0.99 mg/dL (0.70-1.30); EST Glomerular Filtration Rate 83 mL/min (>60); Est Glom Filt Rate - Afr Amer 101 mL/min (>60); Globulin 4.2 g/dL (2.2-4.2); Glucose 93 mg/dL (74-106); Potassium 3.7 mmol/L (3.5-5.1); Protein, Total 8.3 g/dL (6.4-8.2); Sodium Level 136 mmol/L (136-145)
== END ==
PROVIDERS: PCP Family Medicine; Referring Provider Nurse Practitioner Family; Visit Provider Nurse Practitioner Family
DX: I10 Essential (primary) hypertension (principal)
CPT/HCPCS: 36415; 80053

== ENCOUNTER → 2020-02-26 16:12 | Outpatient (CLI) | payer BC, SELFPAY ==
[2020-02-21 11:41] VITALS: BMI 30.2
--- NOTE | 2020-02-26 16:13 | US_ITS ---
STUDY: THYROID ULTRASOUND REASON FOR EXAM: Male, 54 years old. NODULE FELT ON EXAM TECHNIQUE: Ultrasound evaluation of the thyroid was performed with real-time and static lara-scale imaging. COMPARISON: None. FINDINGS: RIGHT LOBE: The right lobe of the thyroid gland measures 5.1 x 1.9 x 1.5 cm. There is a homogeneous echotexture. There are no demonstrated solid, cystic or complex lesions. LEFT LOBE: The left lobe of the thyroid gland measures 4.7 x 1.7 x 1.5 cm. There is a homogeneous echotexture. There are no demonstrated solid, cystic or complex lesions. ISTHMUS: The isthmus measures 0.6 cm . The regional lymph nodes are normal. US/Thyroid IMPRESSION: Normal ultrasound examination of the thyroid. Electronically Signed: Abhishek Mahan MD at 22:35 EDT , Service support ,
== END ==
PROVIDERS: PCP Family Medicine; Referring Provider Nurse Practitioner Family; Visit Provider Nurse Practitioner Family
DX: E04.1 Nontoxic single thyroid nodule (principal)
CPT/HCPCS: 76536

== ENCOUNTER → 2020-06-25 16:23 | Outpatient (CLI) | payer BC, SELFPAY ==
[2020-02-21 11:41] VITALS: BMI 30.2
[2020-06-25 17:08] LABS: Absolute Lymphocyte Count 1.56 X10^3/uL (0.83-4.51); Absolute Neutrophil Count 3.8 X10^3/uL (2.0-7.7); Basophil# 0.08 X10^3/uL; Basophil% 1.3 % (0-1); Eosinophil# 0.08 X10^3/uL; Eosinophils% 1.3 % (0-5); Hematocrit 34.7 % (40-54); Hemoglobin 11.2 g/dL (13.0-16.5); Lymphocyte # 1.56 X10^3/ul (4.0); Lymphocyte % 25.8 % (19-41); Mean Corp Hgb Conc 32.3 g/dL (32-36); Mean Corpuscular Hgb 23.5 pg (27.0-32.0); Mean Corpuscular Volume 72.7 fL (80-94); Mean Platelet Vol. 10.4 fl (6.2-12.0); Monocyte# 0.52 X10^3/uL; Monocyte% 8.6 % (0-10); NRBC Flagged by Analyzer 0 % (0-5); Neutrophil # 3.79 X10^3/uL (2.7-7.7); Neutrophil % 62.7 % (47-70); Platelet Count 285 K/mm3 (150-450); RBC Distribution Width CV 15.1 % (11.6-14.6); RBC Distribution Width SD 39.4 fl (35.1-43.9); Red Blood Count 4.77 M/mm3 (4.6-6.2); White Blood Count 6.1 K/mm3 (4.4-11.0)
[2020-06-25 17:48] LABS: AST(SGOT) 19 U/L (15-37); Alanine Aminotransfer ALT/SGPT 25 U/L (16-61); Alkaline Phosphatase 76 U/L (45-117); Anion Gap 7 (5-15); BUN 19 mg/dL (7-18); BUN/Creat Ratio 19.7 RATIO (10-20); Calcium,Total 9.2 mg/dL (8.5-10.1); Chloride 101 mmol/L (98-107); Cholesterol 267 mg/dL (200); Creatinine, Serum 0.96 mg/dL (0.70-1.30); EST Glomerular Filtration Rate 86 mL/min (>60); Est Glom Filt Rate - Afr Amer 104 mL/min (>60); Globulin 4.1 g/dL (2.2-4.2); Glucose 83 mg/dL (74-106); High Density Lipoprotein 63 mg/dL; PSA,Total - Annual Screen 1.08 ng/mL (0.00-4.00); Potassium 3.6 mmol/L (3.5-5.1); Protein, Total 8.1 g/dL (6.4-8.2); Sodium Level 137 mmol/L (136-145); Thyroid Stim Hormone (TSH) 1.82 uIU/mL (0.358-3.74); Triglycerides 233 mg/dL; Very Low Density Lipoprotein 47 mg/dL (5-40)
[2020-06-26 10:44] LABS: Ferritin 451 ng/mL (26-388); Iron 87 ug/dL (65-175); Iron Binding Capacity,Total 311 ug/dL (250-450)
== END ==
PROVIDERS: PCP Family Medicine; Referring Provider Nurse Practitioner Family; Visit Provider Nurse Practitioner Family
DX: Z00.00 Encounter for general adult medical examination without abnormal findings (principal); E78.5 Hyperlipidemia, unspecified; I10 Essential (primary) hypertension; D50.9 Iron deficiency anemia, unspecified
CPT/HCPCS: 36415; 80053; 80061; 82728; 83540; 83550; 84153; 84443; 85025; G0103

== ENCOUNTER → 2020-12-13 07:13 | Outpatient (CLI) | payer BC, SELFPAY ==
[2020-09-24 16:07] VITALS: BMI 31.7
[2020-12-13 08:17] LABS: Cholesterol 245 mg/dL (200); High Density Lipoprotein 38 mg/dL; Triglycerides 150 mg/dL; Very Low Density Lipoprotein 30 mg/dL (5-40)
[2020-12-13 16:23] LABS: Xtra Tube EP Lab EXTRA TUBE
== END ==
PROVIDERS: PCP Family Medicine; Referring Provider Nurse Practitioner Family; Visit Provider Nurse Practitioner Family
DX: E78.5 Hyperlipidemia, unspecified (principal)
CPT/HCPCS: 36415; 80061

== ENCOUNTER 2021-03-17 05:24 | Emergency (ER) | payer BC, SELFPAY ==
[2021-03-17 05:24] VITALS: BP 163/88; PULSE 68; RESP 16; TEMP 36.5; O2SAT 98; BMI 31.1
--- NOTE | 2021-03-17 05:42 | EDS_ITS ---
HPI History of Present Illness Chief Complaint: Back Informant: patient Narrative Narrative: 55-year-old male presents to the emergency department with low back pain. Patient states that he had a diagnosis of spinal stenosis and underwent cervical surgery in 2019 [facility]. He states that he was doing well but was told that he also had spinal stenosis in the lumbar region. He states that he subsequently underwent bilateral hip replacements. In January he states he had an episode where his legs went numb while shopping and he has had increasing pain in the low back and hips. He recently went and saw his orthopedist who felt that the hips were fine. He has an appointment in 2 days with his spinal surgeon. No recent trauma. No fevers. He has not been getting back injections. Denies any bowel or bladder dysfunction. No loss of perineal sensation. He states the only area of his legs that are currently numb is in the low back. He states that he just cannot get comfortable is having a significant amount of pain. [facility] Medical History Alcohol abuse, in remission Anxiety Chronic low back pain High blood pressure High cholesterol Home Medications losartan 100 mg-hydrochlorothiazide 25 mg tablet 1 tab PO DAILY #90 tab 12/25/20 [Rx Last Taken Unknown] amlodipine 10 mg tablet 10 mg PO QDAY #90 tab 01/27/21 [Rx Last Taken Unknown] duloxetine 30 mg capsule,delayed release 30 mg PO DAILY #90 cap 01/27/21 [Rx Last Taken Unknown] famciclovir 250 mg tablet 250 mg PO Q12H #60 tab 01/27/21 [Rx Last Taken Unknown] rosuvastatin 20 mg tablet 20 mg PO DAILY #90 tab 01/27/21 [Rx Last Taken Unknown] trazodone 150 mg tablet 150 mg PO DAILY #90 tab 01/27/21 [Rx Last Taken Unknown] diazepam 5 mg PO Q8 PRN #9 tab 03/17/21 [Rx Last Taken Unknown] oxycodone 10 mg PO Q6H PRN 3 Days #12 tab 03/17/21 [Rx Last Taken Unknown] Allergy/AdvReac Type Severity Reaction Status Date / Time No Known Allergies Allergy Verified 03/17/21 05:27 Family History Mother Cancer Sister Diabetes Brother Diabetes Surgical History History of cervical spinal surgery History of hernia repair History of total left hip replacement History of total right hip replacement Social History Smoking Status: Former smoker alcohol intake: never substance use type: does not use what type of physical activity do you participate in: none ROS ROS ED Constitutional Constitutional ED: Denies chills or weight loss Eyes Eyes: Denies change in vision or diplopia ENT ENT ED: Denies ear pain, rhinorrhea or sore throat Cardiovascular Cardiovascular: Denies chest pain, orthopnea, palpitations or racing heartbeat Respiratory/Chest Respiratory/Chest: Denies cough, dyspnea or orthopnea Gastrointestinal Gastrointestinal: Denies abdominal pain, diarrhea, nausea or vomiting Genitourinary Genitourinary ED: Denies dysuria, hematuria or urinary frequency Musculoskeletal Musculoskeletal: Reports back pain; Denies arthralgias or myalgias Integumentary Denies abscess or rash Neurologic Neurologic: Reports other Details: Decreased sensation right ortega ; Denies headache(s) or weakness Psychiatric Psychiatric: Denies anxiety, depression, suicidal ideation or suicidal thoughts Endocrine Endocrinology: Denies polydipsia, polyphagia or polyuria Allergic/Immunologic Allergic/Immunologic ED: Denies mouth swelling, tongue swelling or urticaria EXAM Physical Exam Narrative Exam Narrative: Patient appears very uncomfortable in the bed. He is having difficulty finding a position of comfort Const Vital Signs: 03/17/21 05:24 Temperature 97.7 F L Temperature Source Oral Pulse Rate 68 Respiratory Rate 16 Blood Pressure 163/88 H Blood Pressure Mean 113 Pulse Ox 98 Oxygen Delivery Method Room Air Positive well nourished and well developed General Appearance ED: well developed HEENT Reports normocephalic, head/scalp atraumatic and moist mucous membranes Eyes PERRL and EOMs intact bilaterally Neck no lymphadenopathy, supple and no JVD Resp normal respiratory effort and clear to auscultation bilaterally Cardio regular rate, regular rhythm and no murmurs GI normal to inspection, nondistended, normoactive bowel sounds and non-tender Palpation: soft Back/Spine no CVA tenderness and normal ROM Back/Spine Narrative: Painful range of motion. Thoracic Spine / Upper Back: paraspinal muscle tenderness Lumbar Spine / Lower Back: straight leg raise negative bilaterally Extremity normal to inspection General Extremety ED: Negative for edema General Extremity: Negative for edema Neuro oriented x3 and CN's II-XII intact bilaterally Sensorium / Orientation: alert Motor Exam: strength 5/5 throughout Deep Tendon Reflexes: Rt Patellar (L4): 2+, Lt Patellar (L4): 2+, Rt Ankle (S1): 2+ and Lt Ankle (S1): 2+ Deep Tendon Reflexes Back: Rt Patellar (L4): 2+, Lt Patellar (L4): 2+, Rt Ankle (S1): 2+ and Lt Ankle (S1): 2+ Psych mental status grossly normal Mood & Affect: Negative for depressed or tearful Skin no rashes or lesions noted and no wounds MDM MDM MDM Narrative Medical decision making narrative: The patient's OARRS report was reviewed. He has had no prescriptions this year. Patient received a dose of Dilaudid and Valium as this is worked well for him in the past. Patient was improved on repeat examination. I will write for him to have some oxycodone and Valium at home. Work note will be given. Discharge Plan Triage Chief Complaint: Back ED Provider: Jose Zaldivar Dx/Rx/DC Orders Clinical Impression: Acute low back pain, Spinal stenosis Instructions: ED Back Pain (Acute or Chronic) Prescriptions: New diazepam [diazepam] 5 MG tablet 5 mg PO Q8 PRN (Reason: Muscle Spasm) Qty: 9 RF: 0 oxycodone 10 mg tablet 10 mg PO Q6H PRN (Reason: pain) 3 Days Qty: 12 RF: 0 No Action amlodipine 10 mg tablet 10 mg PO QDAY Qty: 90 RF: 3 famciclovir 250 mg tablet 250 mg PO Q12H Qty: 60 RF: 2 rosuvastatin 20 mg tablet 20 mg PO DAILY Qty: 90 RF: 1 trazodone 150 mg tablet 150 mg PO DAILY Qty: 90 RF: 3 duloxetine 30 mg capsule,delayed release(DR/EC) 30 mg PO DAILY Qty: 90 RF: 1 losartan-hydrochlorothiazide 100-25 mg tablet 1 tab PO DAILY Qty: 90 RF: 1 Primary Care Provider: Danyel Calabrese Referrals: Danyel Calabrese, DO [Primary Care Provider] - Activity Restrictions/Additional Instructions: Please keep your appointment with your spinal surgeon Do not take trazodone if you are using the Valium. Disposition Disposition: Home, Self Care
[2021-03-17] MEDS: diazePAM 5 MG Tablet PO (05:53)
[2021-03-17] MEDS: HYDROmorphone 1 MG/ML Syringe IM (05:54)
== END 2021-03-17 07:17 | disposition home or self-care (01) ==
PROVIDERS: Emergency Provider Emergency Medicine; PCP Family Medicine
DX: M54.5 Low back pain (principal); M48.061 Spinal stenosis, lumbar region without neurogenic claudication; E78.00 Pure hypercholesterolemia, unspecified; F41.9 Anxiety disorder, unspecified; G89.29 Other chronic pain; F10.11 Alcohol abuse, in remission; Z96.643 Presence of artificial hip joint, bilateral; Z79.899 Other long term (current) drug therapy; Z87.891 Personal history of nicotine dependence
CPT/HCPCS: 96372; 99283

== ENCOUNTER 2021-04-28 00:47 | Emergency (ER) | payer BC, SELFPAY ==
[2021-04-28 00:48] VITALS: BP 147/87; PULSE 99; RESP 18; TEMP 37.3; O2SAT 99; BMI 33.0
--- NOTE | 2021-04-28 01:16 | EDS_ITS ---
HPI History of Present Illness Chief Complaint: Edema Informant: patient Narrative Narrative: Patient presents with swelling of both feet. He is concerned about possible DVT. He had a lumbar fusion the fourth of this month about 8 days ago. He has occasional tingling in his toes but no development of weakness bowel or bladder dysfunction. He has not been real ambulatory. He is still sore and slow to move. He has compression stockings at home but he cannot put those on because he cannot bend over to do so. He did have calf cuufs on during Hospitalization. He Has Never Had a DVT or PE. He has no history of cancer. He has had recent surgery. [facility] Medical History Alcohol abuse, in remission Anxiety Chronic low back pain High blood pressure High cholesterol Home Medications losartan 100 mg-hydrochlorothiazide 25 mg tablet 1 tab PO DAILY #90 tab 12/25/20 [Rx Last Taken Unknown] rosuvastatin 20 mg tablet 20 mg PO DAILY #90 tab 01/27/21 [Rx Last Taken Unknown] Allergy/AdvReac Type Severity Reaction Status Date / Time No Known Allergies Allergy Verified 04/28/21 00:48 Family History Mother Cancer Sister Diabetes Brother Diabetes Surgical History History of cervical spinal surgery History of hernia repair History of lumbar surgery History of total left hip replacement History of total right hip replacement Social History Smoking Status: Former smoker alcohol intake: never substance use type: does not use what type of physical activity do you participate in: none ROS ROS ED Constitutional Constitutional ED: Denies chills, fever(s) or subjective Eyes Eyes: Denies blurry vision or change in vision ENT ENT ED: Denies rhinorrhea or sore throat Cardiovascular Cardiovascular: Denies chest pain, orthopnea, palpitations or paroxysmal nocturnal dyspnea Respiratory/Chest Respiratory/Chest: Denies cough, dyspnea, dyspnea on exertion, orthopnea, paroxysmal nocturnal dyspnea or sputum Gastrointestinal Gastrointestinal: Denies nausea or vomiting Genitourinary Genitourinary ED: Denies dysuria, hematuria or urinary frequency Musculoskeletal Musculoskeletal: Reports back pain; Denies arthralgias, myalgias or neck pain Integumentary Denies rash Neurologic Neurologic: Reports paresthesias; Denies headache(s) or weakness Psychiatric Psychiatric: Denies depression Endocrine Endocrinology: Denies polydipsia or polyuria Allergic/Immunologic Allergic/Immunologic ED: Denies urticaria EXAM Physical Exam Const Vital Signs: 04/28/21 00:48 04/28/21 00:55 Temperature 99.2 F H Temperature Source Oral Pulse Rate 99 Respiratory Rate 18 Respiratory Pattern Normal Blood Pressure 147/87 H Blood Pressure Mean 107 Pulse Ox 99 Oxygen Delivery Method Room Air Positive well nourished and well developed General Appearance ED: well developed and NAD HEENT Negative for trauma Eyes General Eye ED: Negative for pale conjunctiva Neck no JVD Back/Spine no CVA tenderness Back/Spine Narrative: Raymond are still in place. His wound is not bleeding or leaking. It looks like it is healing quite well. Extremity normal to inspection Extremity Narrative: Patient feels as though his feet are tight. The swelling does not go up his legs. Its only in the feet and ankle area. However, I do not see the swelling. There may be a little bit of fullness to the dorsum of the feet. There is no pitting. There is no asymmetry. No differential diameter of his calfs. No distended veins. Neuro oriented x3 Neuro Narrative: Normal sensation and range of motion. No sign of weakness or neurologic deficit. Sensorium / Orientation: alert Psych mental status grossly normal Skin no rashes or lesions noted MDM MDM MDM Narrative Medical decision making narrative: Patient has a Wells criteria of -1. I do not think this justifies giving anticoagulation at this time. I think I could likely hurt him more than help him. We will get an outpatient ultrasound tomorrow. I do not have that option tonight. Discharge Plan Triage Chief Complaint: Edema ED Provider: Bobo Glass Dx/Rx/DC Orders Clinical Impression: Bilateral swelling of feet Instructions: ED Peripheral Edema, Bilateral Prescriptions: No Action rosuvastatin 20 mg tablet 20 mg PO DAILY Qty: 90 RF: 1 losartan-hydrochlorothiazide 100-25 mg tablet 1 tab PO DAILY Qty: 90 RF: 1 Other Ambulatory Orders: Venous Duplex US - Jose Extrem (Routine) Facility: [facility] - Location: [facility] Ordered By: Dr. Peter Listerman Primary Care Provider: Danyel Calabrese Referrals: Danyel Calabrese, DO [Primary Care Provider] - As Needed Disposition Disposition: Home, Self Care
[2021-04-28 01:42] VITALS: BP 134/87
== END 2021-04-28 01:42 | disposition home or self-care (01) ==
LOC: ED 01:27
PROVIDERS: Emergency Provider Emergency Medicine; PCP Family Medicine
DX: M79.89 Other specified soft tissue disorders (principal); R20.2 Paresthesia of skin; F41.9 Anxiety disorder, unspecified; E78.00 Pure hypercholesterolemia, unspecified; G89.29 Other chronic pain; Z87.891 Personal history of nicotine dependence; Z79.899 Other long term (current) drug therapy
CPT/HCPCS: 99282

== ENCOUNTER → 2021-07-08 20:00 | Outpatient (CLI) | payer BC, SELFPAY | PROVIDERS: PCP Family Medicine; Referring Provider Nurse Practitioner Family; Visit Provider Nurse Practitioner Family | DX: G47.10 Hypersomnia, unspecified (principal) | CPT/HCPCS: 95810 ==

== ENCOUNTER 2021-07-13 09:00 | Outpatient (RCR) | payer BC, SELFPAY ==
--- NOTE | 2021-05-13 14:19 | HP.PTEVAL ---
Patient's Visit Information DENNIS ANAYA is a 56 year old M referred to Physical Therapy by Asha Chen, SHANDRA-C with a diagnosis of S/P GAB LAMINECTOMY L2-5 & FACETECEOMY, FORMAINOTOMY AND MICRODISCECTOMY L. Date of Evaluation: 05/13/21 Physical Therapist: Shelly Matute, PT, Cert MDT - Visit Plan Frequency: 2-3x /Week Duration: 4-6 Weeks Plan: WEAN FROM BRACE TOLERATED. BEGIN LUMBAR ROM AFTER 06/03/21. POSTURE CORRECTION/STRENGTHENING, INSTRUCTION IN APPROPRIATE BODY MECHANICS AND ACTIVITY MODIFICATIONS. DLS STARTING WITH A NEUTRAL SPINE PROGRESSING ROM TOLERATED. GAB LE ROM, STRETCHING AND STRENGTHENING. HEP INSTRUCTION. - Subjective DX: LUMBAR HNP WITH GAB LAMINECTOMY L2-5 WITH PARTIAL FACETECTOMY AND FORAMINOTOMY AND MICRODISCETOMIES L3-5 ON 04/20/21. Work/Leisure: WORKS FOR [employer] 55 LB BAGS - REPETATIVE. STANDING. TENTATIVE RTW DATE IS NOT SET BUT FOLLOW UP WITH SURGEON JUN 18 2021. Disability: NO. Present symptoms: LOW BACK PAIN AND RIGHT GROIN PAIN. RIGHT CHANDRA PAIN, NUMBNESS AND TINGLING BUT GETTING BETTER. Present since: NOVEMBER 2020. Pain Scale: WORST 8/10, LEAST 3/10. Currently: 3/10. Commenced as a result of: NO APPARENT REASON. Symptoms at onset: LBP. Worse: MOVING AROUND, WALKING. Better: ICE, PAIN MEDICATION, SITTING, LYING. Disturbed sleep: NO. Previous history/Previous treatment: PATIENT REPORTS THAT BEFORE SURGERY BOTH LEGS WERE GOING COMPLETLY NUMB. LEGS WERE GIVING OUT AND EPISODES OF GREAT DIFFICULTY WALKING. 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 PT FOR HIPS. Treatment this episode: SURGERY. Coughing/sneezing/straining: POSITIVE. Gait: REPORTS HE IS SUPPOSED TO CONTINUE USING THE WALKER UNTIL PT SAYS IT IS OK TO STOP. DOES OCCASSIONALLY WALK AROUND THE HOUSE WITHOUT WALKER AND DOING OK. PAIN IS WORSE IN THE MORNING SO USES WALKER MORE IN THE MORNING. Difficulty initiating urination: NO. Accidents: NO. Unexplained weight loss: NO. Imaging: NONE SINCE SURGERY. PMH: HTN. GAB THR'S DR. TURNER L - APR 2019, R - JUN 2019. Recent major surgery: ACDF 03/06/2019 - Objective Sitting/Standing Posture: POOR. REDUCED LUMBAR LORDOSIS BUT NO RELEVENT LATERAL SHIFT. LUMBAR INCISION LOOKS GOOD WITHOUT ANY SIGNS OF INFECTION. Active Correction of posture: BETTER. Other Observations: INDEP GAIT INTO PT WITH VERY LIGHT ASSIST FROM FWW. INCREASED TRUNK FLEXION. DECREASED CADANCE AND VERY SHORT GAB STRIDE LENGTH. UE DEPENDENT TO TRANSFER FROM SIT TO STAND. Motor deficit: RIGHT LE: HIP 4-/5, KNEE EXT 5/5, KNEE FLEX 5/5, ANKLE 5/5. LLE: HIP 4/5, KNEE AND ANKLE 5/5. Sensory deficit: DECREASED LIGHT TOUCH SENSATION OF RIGHT LOWER LEG COMPARED TO LEFT. ROM deficit: GAB HIP FLEXOR, HS AND GASTROC SOLEUS TIGHTNESS. Dural Signs: NEGATIVE GAB LE'S. Lumbar mvmt loss: NT. Core strength: POOR. TREATMENT: NEUROMUSCULAR REEDUCATION - RETRAINING OF MVMT AND POSTURE FOR SITTING, LYING AND STANDING ACTIVITIES. ALSO INSTRUCTED PATIENT IN A WALKING PROGRAM. - Balance/Special Test Scores Oswestry Low Back Score: 22 - Goals Goal 1:: DECREASE C/O LOW BACK AND RIGHT LE SX'S. Goal Time Frame: 6-8 Weeks Goal 2:: IMPROVE PERSONAL CARE, LIFTING, WALKING, STANDING, SOCIAL LIFE, TRAVEL AND WORK/HOMEMAKING FUNCTION. Goal Time Frame: 6-8 Weeks Goal 3:: INSTRUCT IN PROPHYLAXIS Goal Time Frame: 6-8 Weeks - Anticipated Interventions Patient/Client Instruction: Educate patient on: Condition, Plan of Care, Risk Factors For the Purpose of:: To improve self management Therapeutic Exercise to Include: Strength training, Body mechanics, Postural training, Flexibilty training, Neuromotor development, In an aquatic setting, Dynamic Lumbar Stabilization For the Purpose of:: To decrease pain, To improve muscle performance and motor function, To increase tolerance to activity/condition/position, To improve ability of physical actions for home/community/work/leisure Thank you for the opportunity to evaluate your patient. For Medicare and Medicare HMO plans, please review the plan of care and approve it. It will need to be FAXED BACK to us at [phone] for Medicare purposes. For Medicare only, by signing this I certify the plan of care. Please let me know if there are questions or concerns regarding this plan of care. Physician Signature: Date:
--- NOTE | 2021-06-22 12:59 | HP.PTREVAL ---
Asha Chen, CREATIVE WRITING ENGLISH PROFESSOR-C, It has been my pleasure to treat DENNIS ANAYA over the last 13 visits for S/P GAB LAMINECTOMY L2-5 & FACETECEOMY, FORMAINOTOMY AND MICRODISCECTOMY L. Please see the progress note below for an update on the physical therapy plan of care! Subjective: PATIENT REPORTS FOLLOWING UP WITH HIS SURGEON JUN 18 2021 AND MORE PT ORDERED. STATES HE IS NOT READY TO GO BACK TO WORK. FOLLOW UP PENDING AGAIN JUL 14 2021. PATIENT REPORTS HE ASKED FOR MORE THERAPY. PATIENT REPORTS WHEN HE GETS OUT OF BED HE HURTS AND IT TAKES HIS RIGHT LEG AWHILE TO RESPOND AFTER HE GETS OUT OF BED. PATIENT ALSO REPORTS INCREASED PAIN GOING UP STEPS IN HIS BACK AND RIGHT HIP. 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 ALSO RIDING STATIONARY BIKE. I CAN'T TIE MY RIGHT SHOE. BUT PATIENT REPORTS PT IS CONTINUEING TO HELP HIM AND HE NEEDS AND WANTS TO CONTINUE. Objective/Function: PATIENT WAS SEEN TODAY FOR RE-ASSESSMENT OF PROGRESS TOWARD THE SET PT GOALS AND THE NEED FOR FURTHER PHYSICAL THERAPY VS READINESS FOR DISCHARGE. PATIENT IS PROGRESSING SLOWLY. HE IS A GOOD CANDIDATE TO CONTINUE PT BASED ON PROGRESS MADE AND ROOM FOR FURTHER IMPROVEMENT. 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 UPON EXAM TODAY: INDEP GAIT INTO PT WITH MILD INCREASED TRUNK FLEXION, DECREASED CADANCE AND SHORT GAB STRIDE LENGHT. INDEP TRANSFER FROM SIT TO STAND WITHOUT UE ASSIST. Motor deficit: RIGHT LE: HIP 4/5, KNEE EXT 5/5, KNEE FLEX 5/5, ANKLE 5/5. LLE: HIP 4+/5, KNEE 5/5 AND ANKLE 5/5. ROM deficit: GAB HIP FLEXOR, HS AND GASTROC SOLEUS TIGHTNESS. Dural Signs: NEGATIVE GAB LE'S. Core strength: POOR. LUMBAR MVMT LOSS: FLEX - MOD. EXT - BREE. R SG - BREE. L SG - BREE Plan Plan: CONTINUE PT FOR POSTURE CORRECTION/STRENGTHENING, INSTRUCTION IN APPROPRIATE BODY MECHANICS AND ACTIVITY MODIFICATIONS. DLS. GAB LE ROM, STRETCHING AND STRENGTHENING. HEP INSTRUCTION. SLOW PROGRESSION INTO WORK SIMULATION. Balance/Gait/Functional tests - Balance/Special Test Scores Oswestry Low Back Score: 22 Goals Goal 1:: DECREASE C/O LOW BACK AND RIGHT LE SX'S. Goal Time Frame: 6-8 Weeks Goal Progress: Progressing Goal 2:: IMPROVE PERSONAL CARE, LIFTING, WALKING, STANDING, SOCIAL LIFE, TRAVEL AND WORK/HOMEMAKING FUNCTION. Goal Time Frame: 6-8 Weeks Goal Progress: Progressing Goal 3:: INSTRUCT IN PROPHYLAXIS Goal Time Frame: 6-8 Weeks Goal Progress: Progressing Anticipated Interventions Patient/Client Instruction: Educate patient on: Condition, Plan of Care, Risk Factors For the Purpose of:: To improve self management Therapeutic Exercise to Include: Strength training, Body mechanics, Postural training, Flexibilty training, Neuromotor development, In an aquatic setting, Dynamic Lumbar Stabilization For the Purpose of:: To decrease pain, To improve muscle performance and motor function, To increase tolerance to activity/condition/position, To improve ability of physical actions for home/community/work/leisure Please do not hesitate to contact me at [phone] by phone or if you have questions or concerns regarding this new plan of care! Sincerely, Shelly Matute, PT, Cert MDT
--- NOTE | 2021-07-13 17:56 | HP.PTREVAL ---
Asha Chen, WET POUR SUPERVISOR-C, It has been my pleasure to treat DENNIS ANAYA over the last 18 visits for S/P GAB LAMINECTOMY L2-5 & FACETECEOMY, FORMAINOTOMY AND MICRODISCECTOMY L. Please see the progress note below for an update on the physical therapy plan of care! 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 HOWEVER HIS COMPANY IS ON SHUT DOWN THIS WEEK SO HE WILL REUTRN NEXT WEEK. PATIENT CONTINUES TO REPORT A LOT OF STIFFNESS IN THE MORNINGS BUT LOOSENS UP ONCE HE GETS GOING AND THE BEST HE FEELS IS AFTER THERAPY SESSIONS. HE REPORTS HE REALLY LIKES HIS THERAPISTS AND HE HAS BEEN PUSHED HARD LIKE HE WANTS TO BE BUT NOT TOO HARD. PATIENT REPORTS THAT HE LAST WORKED IN FEBRUARY OF 2021 AND THEN HAD BACK SURGERY IN [employer]. PATIENT REPORTS HE WANTS TO TRY TO GO BACK TO WORK NEXT WEEK. PATIENT REPORTS HIS BACK IS STILL GETTING BETTER BUT IT IS STILL TIGHT. PATIENT REPORTS IT STILL PULLS IN HIS BACK WHEN HE TRIES TO STAND UP STRAIGHT BUT HE RELATES SOME OF IT TO HIS RIGHT HIP DYSFUNCTION. I FEEL THE BEST WHEN I LEAVE OUT OF HERE. PATIENT REPORTS HE WANTS TO STOP PT AND HOLD JOINING A GYM UNTIL HE SEES HOW HE DOES GOING BACK TO WORK. Objective/Function: PATIENT WAS SEEN TODAY FOR RE-ASSESSMENT OF PROGRESS TOWARD THE SET PT GOALS AND THE NEED FOR FURTHER PHYSICAL THERAPY VS READINESS FOR DISCHARGE. HE IS INDEP WITH A HEP AND COMMUNICATES A GOOD UNDERSTANDING OF ALL INSTRUCTIONS THAT HAVE BEEN GIVEN. OVER-ALL PATIENT HAS MADE GOOD PROGRESS TOWARD ALL PT GOALS BUT STILL HAS LIMITATIONS BELOW. HE MAY BENEFIT FROM CONTINUED FORMAL PT TO SAFELY PROGRESS TO RTW. UPON EXAM TODAY: INDEP GAIT INTO PT WITH GOOD POSTURE BUT DECREASED GAB STRIDE LENGTH AND DECREASED TRUNK ROTATION. INDEP TRANSFER FROM SIT TO STAND WITHOUT UE ASSIST. Motor deficit: RIGHT LE: HIP 4/5, KNEE EXT 5/5, KNEE FLEX 5/5, ANKLE 5/5. LLE: HIP 5/5, KNEE 5/5 AND ANKLE 5/5. ROM deficit: GAB HIP, HS AND GASTROC SOLEUS TIGHTNESS. GAB HIP TIGHTNESS ALL PLANES RIGHT > LEFT. Dural Signs: NEGATIVE GAB LE'S. Core strength: FAIR. LUMBAR MVMT LOSS: FLEX - MIN. EXT - MOD - BREE. R SG - MOD. L SG - MOD. OTHER: INSTRUCTED PATIENT IN POSSIBLE RISKS OF RETURN TO WORK AND BENEFITS OF CONTINUED PT. HE WOULD LIKE TO TRY TO GO BACK TO WORK AND WILL CONSIDER MORE PT AND GYM MEMBERSHIP AFTER HE SEE'S HOW HE DOES. Plan Plan: D/C AT PATIENTS REQUEST. Balance/Gait/Functional tests - Balance/Special Test Scores Oswestry Low Back Score: 10 Goals Goal 1:: DECREASE C/O LOW BACK AND RIGHT LE SX'S. Goal Time Frame: 6-8 Weeks Goal Progress: Progressing Goal 2:: IMPROVE PERSONAL CARE, LIFTING, WALKING, STANDING, SOCIAL LIFE, TRAVEL AND WORK/HOMEMAKING FUNCTION. Goal Time Frame: 6-8 Weeks Goal Progress: Progressing Goal 3:: INSTRUCT IN PROPHYLAXIS Goal Time Frame: 6-8 Weeks Goal Progress: Progressing Anticipated Interventions Patient/Client Instruction: Educate patient on: Condition, Plan of Care, Risk Factors For the Purpose of:: To improve self management Therapeutic Exercise to Include: Strength training, Body mechanics, Postural training, Flexibilty training, Neuromotor development, In an aquatic setting, Dynamic Lumbar Stabilization For the Purpose of:: To decrease pain, To improve muscle performance and motor function, To increase tolerance to activity/condition/position, To improve ability of physical actions for home/community/work/leisure Please do not hesitate to contact me at [phone] by phone or if you have questions or concerns regarding this new plan of care! Sincerely, Shelly Matute, PT, Cert MDT
== END 2021-07-13 19:00 | disposition home or self-care (01) ==
LOC: PT 09:00
PROVIDERS: PCP Family Medicine; Visit Provider Nurse Practitioner Acute Care
DX: M51.26 Other intervertebral disc displacement, lumbar region (principal)
CPT/HCPCS: 97110; 97112; 97140; 97162; 97164

== ENCOUNTER 2021-09-18 14:22 | Outpatient (CLI) | payer BC, SELFPAY | END 2021-09-18 23:59 | disposition home or self-care (01) | LOC: SL 14:22 | PROVIDERS: PCP Family Medicine; Visit Provider Nurse Practitioner Family | DX: Z00.00 Encounter for general adult medical examination without abnormal findings (principal) ==

== ENCOUNTER → 2021-12-01 | Outpatient (CLI) | payer BC, SELFPAY ==
[2021-12-01 16:57] LABS: Absolute Lymphocyte Count 2.05 X10^3/uL (0.83-4.51); Absolute Neutrophil Count 3.6 X10^3/uL (2.0-7.7); Basophil# 0.06 X10^3/uL; Basophil% 0.9 % (0-1); Eosinophil# 0.28 X10^3/uL; Eosinophils% 4.4 % (0-5); Hematocrit 36.7 % (40-54); Hemoglobin 11.9 g/dL (13.0-16.5); Lymphocyte # 2.05 X10^3/ul (0.83-4.51); Mean Corp Hgb Conc 32.4 g/dL (32-36); Mean Corpuscular Hgb 21.9 pg (27.0-32.0); Mean Corpuscular Volume 67.5 fL (80-94); Mean Platelet Vol. 10.4 fl (6.2-12.0); Monocyte# 0.43 X10^3/uL; Monocyte% 6.7 % (0-10); NRBC Flagged by Analyzer 0 % (0-5); Neutrophil # 3.57 X10^3/uL (2.7-7.7); Neutrophil % 55.8 % (47-70); Platelet Count 253 K/mm3 (150-450); RBC Distribution Width CV 16.8 % (11.6-14.6); RBC Distribution Width SD 39.5 fl (35.1-43.9); Red Blood Count 5.44 M/mm3 (4.6-6.2); White Blood Count 6.4 K/mm3 (4.4-11.0)
[2021-12-01 18:35] LABS: AST(SGOT) 15 U/L (15-37); Alanine Aminotransfer ALT/SGPT 25 U/L (16-61); Albumin, Serum 3.6 g/dL (3.2-5.0); Alkaline Phosphatase 71 U/L (45-117); Anion Gap 7 (5-15); BUN 21 mg/dL (7-18); BUN/Creat Ratio 23.1 RATIO (10-20); Calcium,Total 8.9 mg/dL (8.5-10.1); Chloride 107 mmol/L (98-107); Cholesterol 213 mg/dL (200); Creatinine, Serum 0.91 mg/dL (0.70-1.30); EST Glomerular Filtration Rate 91 mL/min (>60); Est Glom Filt Rate - Afr Amer 110 mL/min (>60); Globulin 3.6 g/dL (2.2-4.2); Glucose 98 mg/dL (74-106); High Density Lipoprotein 32 mg/dL; PSA,Total - Annual Screen 0.68 ng/mL (0.00-4.00); Potassium 3.8 mmol/L (3.5-5.1); Protein, Total 7.2 g/dL (6.4-8.2); Sodium Level 139 mmol/L (136-145); Thyroid Stim Hormone (TSH) 1.74 uIU/mL (0.358-3.74); Triglycerides 246 mg/dL; Very Low Density Lipoprotein 49 mg/dL (5-40)
== END | disposition home or self-care (01) ==
LOC: BIMLAB 16:14
PROVIDERS: PCP Family Medicine; Referring Provider Nurse Practitioner Family; Visit Provider Nurse Practitioner Family
DX: I10 Essential (primary) hypertension (principal); E78.5 Hyperlipidemia, unspecified; M54.50 Low back pain, unspecified; G89.29 Other chronic pain; Z12.5 Encounter for screening for malignant neoplasm of prostate
CPT/HCPCS: 36415; 80053; 80061; 84153; 84443; 85025; G0103

== ENCOUNTER → 2022-08-25 | Outpatient (CLI) | payer BC, SELFPAY ==
[2022-08-25 12:15] LABS: Absolute Lymphocyte Count 1.58 X10^3/uL (0.83-4.51); Absolute Neutrophil Count 3.7 X10^3/uL (2.0-7.7); Basophil# 0.07 X10^3/uL; Basophil% 1.2 % (0-1); Eosinophil# 0.21 X10^3/uL; Eosinophils% 3.5 % (0-5); Hemoglobin 13.3 g/dL (13.0-16.5); Lymphocyte # 1.58 X10^3/ul (0.83-4.51); Lymphocyte % 26.2 % (19-41); Mean Corp Hgb Conc 31.7 g/dL (32-36); Mean Corpuscular Hgb 21.8 pg (27.0-32.0); Mean Platelet Vol. 11.2 fl (6.2-12.0); Monocyte# 0.44 X10^3/uL; Monocyte% 7.3 % (0-10); NRBC Flagged by Analyzer 0 % (0-5); Neutrophil # 3.71 X10^3/uL (2.7-7.7); Neutrophil % 61.5 % (47-70); Platelet Count 308 K/mm3 (150-450); RBC Distribution Width CV 16.3 % (11.6-14.6); RBC Distribution Width SD 38.2 fl (35.1-43.9); Red Blood Count 6.09 M/mm3 (4.6-6.2)
[2022-08-25 12:53] LABS: ALB/GLOB Ratio 0.9 RATIO (0.9-2.4); AST(SGOT) 19 U/L (15-37); Alanine Aminotransfer ALT/SGPT 30 U/L (16-61); Albumin, Serum 3.7 g/dL (3.2-5.0); Alkaline Phosphatase 64 U/L (45-117); Anion Gap 6 (5-15); BUN 14 mg/dL (7-18); Chloride 101 mmol/L (98-107); Cholesterol 219 mg/dL (200); EST Glomerular Filtration Rate 82 mL/min (>60); Est Glom Filt Rate - Afr Amer 99 mL/min (>60); Glucose 94 mg/dL (74-106); High Density Lipoprotein 37 mg/dL; Potassium 3.9 mmol/L (3.5-5.1); Protein, Total 7.7 g/dL (6.4-8.2); Sodium Level 136 mmol/L (136-145); Thyroid Stim Hormone (TSH) 1.66 uIU/mL (0.358-3.74); Triglycerides 142 mg/dL; Very Low Density Lipoprotein 28 mg/dL (5-40)
== END | disposition home or self-care (01) ==
LOC: BIMLAB 10:58
PROVIDERS: PCP Family Medicine; Referring Provider Nurse Practitioner Family; Visit Provider Nurse Practitioner Family
DX: Z00.00 Encounter for general adult medical examination without abnormal findings (principal); Z12.5 Encounter for screening for malignant neoplasm of prostate; I10 Essential (primary) hypertension; G47.33 Obstructive sleep apnea (adult) (pediatric)
CPT/HCPCS: 36415; 80053; 80061; 84443; 85025

== ENCOUNTER → 2023-03-22 | Outpatient (CLI) | payer BC, SELFPAY ==
[2023-03-22 12:47] LABS: Cholesterol 253 mg/dL (200); High Density Lipoprotein 53 mg/dL; Triglycerides 174 mg/dL; Very Low Density Lipoprotein 35 mg/dL (5-40)
[2023-03-22 13:23] LABS: Ferritin 237 ng/mL (26-388); Iron 142 ug/dL (65-175); Iron Binding Capacity,Total 325 ug/dL (250-450); PERCENT IRON SATURATION 43.7 % (15.0-55.0)
[2023-03-22 14:52] LABS: Vitamin B12 342 pg/mL (211-911)
== END | disposition home or self-care (01) ==
LOC: BIMLAB 09:16
PROVIDERS: Nurse Practitioner Family; PCP Family Medicine; Visit Provider Family Medicine
DX: R35.0 Frequency of micturition (principal); E78.5 Hyperlipidemia, unspecified; D50.9 Iron deficiency anemia, unspecified
CPT/HCPCS: 36415; 80061; 82607; 82728; 82746; 83540; 83550; 84153; G0103

== ENCOUNTER 2023-03-24 13:26 | Emergency (ER) | payer BC, SELFPAY ==
[2023-03-24 13:27] VITALS: BP 141/102; PULSE 87; RESP 16; TEMP 36.2; O2SAT 99; BMI 30.4
--- NOTE | 2023-03-24 15:10 | EDS_ITS ---
HPI History of Present Illness Chief Complaint: Back Informant: patient Narrative Narrative: Patient presents with right-sided back pain. Patient states he has had problems with his back and neck. About 5 or 6 years ago he had a fusion and plate placed in his neck. He has also had lumbar surgery. That is done pretty well. But he has pain below that now in his mid back. Its only on the right. If he looks up it worsens the pain. Reaching his right arm forward bothers a little bit. There is no pain with breathing. He is not short of breath. No trauma. No nausea vomiting. No fevers. No recent infections. He does have a little bit of tingling of his right small finger and ring finger that seems to be new. But no weakness. Nothing has been tried. He states it is hard to reach that area because he lives alone and he cannot rub the area or put anything on it. [facility] Medical History Alcohol abuse, in remission Anxiety Chronic low back pain Encounter for preventative adult health care examination High blood pressure High cholesterol HTN (hypertension) Hypersomnia Lumbar radiculopathy, acute Lumbar strain SANTOS (obstructive sleep apnea) Skin lesion of left lower extremity Strain of left hip Strain of right hip Home Medications cyclobenzaprine 10 mg tablet 10 mg PO TID PRN muscle spasm #20 tabs 12/02/22 [Rx Last Taken Unknown] prednisone 10 mg tablet 10 mg PO DIRECTED #30 tabs 12/02/22 [Rx Last Taken Unknown] famciclovir 250 mg tablet 250 mg PO Q12H #60 tabs 03/16/23 [Rx Last Taken Unknown] losartan 50 mg-hydrochlorothiazide 12.5 mg tablet 1 tab PO DAILY #90 tabs 03/16/23 [Rx Last Taken Unknown] rosuvastatin 20 mg tablet 20 mg PO DAILY #90 tabs 03/16/23 [Rx Last Taken Unknown] sildenafil 100 mg tablet (Viagra) 100 mg PO DAILY PRN sexual activity #7 tabs 03/16/23 [Rx Last Taken Unknown] cyclobenzaprine 10 mg tablet 10 mg PO TID PRN Muscle Spasm #20 TABLETS 03/24/23 [Rx Last Taken Unknown] prednisone 20 mg tablet 60 mg (3 x 20 mg) PO DAILY #15 TABLETS 03/24/23 [Rx Last Taken Unknown] Allergy/AdvReac Type Severity Reaction Status Date / Time No Known Allergies Allergy Verified 03/16/23 15:55 Family History Mother Cancer Sister Diabetes Brother Diabetes Surgical History History of cervical spinal surgery History of hernia repair History of lumbar surgery History of total left hip replacement History of total right hip replacement Social History Smoking Status: Former smoker alcohol intake: never substance use type: does not use what type of physical activity do you participate in: none ROS ROS ED ROS Narrative A complete review of systems was performed and is negative except as documented in the history of present illness. Some specific details below. Constitutional: No recent fevers or chills. No rigors. Patient has not generally felt ill. No recent infections EYE: No visual complaints, or pain. ENT: No sinus pressure or pain. No nasal discharge. CV: No chest pain, pressure or aching. No palpitations or irregular beats. Patient has not been presyncopal or syncopal. Respiratory: No trouble breathing. No cough. No wheezing. No sputum production. No pain with breathing. No recent travel surgery immobilization personal or family history of DVT or PE. GI: No abdominal pain. No nausea vomiting diarrhea. No blood in stool. No loss of bowel control. No history of AAA. : No frequency dysuria or hematuria. No incontinence or urinary retention. Musculoskeletal: No recent trauma. No swelling. Please see history of present illness. Skin: No rash. No diaphoresis. No vesicles. Neuro: No weakness but he does have the right small and ring finger paresthesias as in history of present illness. No pain radiating down leg past the knee. No weakness of ambulation or with grabbing and using his extremities. He has been going to work with this.. No sensory changes in the extremities. Please see history of present illness also. Endocrine: No polyuria or polydipsia. EXAM Physical Exam Narrative Exam Narrative: Patient awake alert no acute distress sitting comfortably on bed very nontoxic and carries on normal conversation. HEENT shows no trauma. Neck shows well-healed anterior scar. His range of motion of the neck is good. When I have him look all the way up he does feel the area sore on his right mid back. Lungs are clear bilaterally. He can take good deep breaths with no pain or discomfort. Does not produce any coughing or cessation of inspiration. His saturation is normal at 99% on room air showing no hypoxia. Heart is regular. No murmur. No muffled tones. Pulses are normal upper and lower extremities and equal. Abdomen is benign. He has normal bowel sounds. Soft nontender. Back shows right-sided paraspinal tenderness at the upper mid back medial to the scapula. This reproduces his symptoms. No midline or percussion tenderness. No skin changes rash or swelling. Extremities show normal muscle development. No wasting. Pulses sensation is normal. 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 He has a sense of paresthesias of the right small and ring finger. I do not reproduce this with tapping on the ulnar nerve at the medial elbow. But assembly machine tool setter strength and sensation is normal. Const Vital Signs: 03/24/23 13:27 Temperature 97.2 F L Temperature Source Temporal Pulse Rate 87 Respiratory Rate 16 Blood Pressure 141/102 H Blood Pressure Mean 115 Pulse Ox 99 Oxygen Delivery Method Room Air MDM MDM MDM Narrative Medical decision making narrative: I have talked with the patient. I do not think this represents heart disease at all. He states he feels great other than the sore area and the tingling of the finger. Not short of breath diaphoretic nausea vomiting or weak. I do not think this is a pulmonary embolus. I do not think imaging is blood work or EKG is going to add to this. He has had this before. He has done well with muscle relaxants and steroids. He is not diabetic. We will initiate this therapy. We discussed reasons to return expected course and follow-up. Discharge Plan Triage Chief Complaint: Back ED Provider: Bobo Glass Dx/Rx/DC Orders Clinical Impression: Cervical radiculopathy at C8, Acute right-sided back pain Instructions: ED Radiculopathy, Cervical Prescriptions: New cyclobenzaprine [cyclobenzaprine] 10 mg tablet 10 mg PO TID PRN (Reason: Muscle Spasm) Qty: 20 0RF prednisone 20 mg tablet 60 mg PO DAILY Qty: 15 0RF No Action prednisone 10 mg tablet 10 mg PO DIRECTED Qty: 30 0RF Rx Instructions: 4 tablets daily x3 days, then 3 tablets daily x3 days, then 2 tablets daily x3 days, then 1 tablet daily x3 days cyclobenzaprine 10 mg tablet 10 mg PO TID PRN (Reason: muscle spasm) Qty: 20 0RF losartan-hydrochlorothiazide 50-12.5 mg tablet 1 tab PO DAILY Qty: 90 3RF famciclovir 250 mg tablet 250 mg PO Q12H Qty: 60 2RF rosuvastatin 20 mg tablet 20 mg PO DAILY Qty: 90 3RF sildenafil [Viagra] 100 mg tablet 100 mg PO DAILY PRN (Reason: sexual activity) Qty: 7 3RF Rx Instructions: administer 30 minutes to 4 hours before activity Primary Care Provider: Danyel Calabrese Referrals: Danyel Calabrese, [Primary Care Provider] - 3-5 Days Disposition Disposition: Home, Self Care
== END 2023-03-24 15:28 | disposition home or self-care (01) ==
LOC: ED 15:28
PROVIDERS: Emergency Provider Emergency Medicine; PCP Family Medicine; Visit Provider Emergency Medicine
DX: M54.12 Radiculopathy, cervical region (principal); I10 Essential (primary) hypertension; E78.00 Pure hypercholesterolemia, unspecified; Z87.891 Personal history of nicotine dependence; Z96.643 Presence of artificial hip joint, bilateral; M54.9 Dorsalgia, unspecified
CPT/HCPCS: 99282

== ENCOUNTER → 2023-10-14 | Outpatient (CLI) | payer BC, SELFPAY ==
[2023-10-14 12:24] LABS: Absolute Lymphocyte Count 1.21 X10^3/uL (0.83-4.51); Basophil# 0.07 X10^3/uL; Basophil% 1.2 % (0-1); Eosinophil# 0.21 X10^3/uL; Eosinophils% 3.5 % (0-5); Hematocrit 41.9 % (40-54); Hemoglobin 13.4 g/dL (13.0-16.5); Lymphocyte # 1.21 X10^3/ul (0.83-4.51); Lymphocyte % 20.2 % (19-41); Mean Corpuscular Hgb 22.7 pg (27.0-32.0); Mean Corpuscular Volume 70.9 fL (80-94); Monocyte# 0.49 X10^3/uL; Monocyte% 8.2 % (0-10); NRBC Flagged by Analyzer 0 % (0-5); Neutrophil % 66.6 % (47-70); Platelet Count 290 K/mm3 (150-450); RBC Distribution Width SD 38.9 fl (35.1-43.9); Red Blood Count 5.91 M/mm3 (4.6-6.2)
[2023-10-14 13:44] LABS: AST(SGOT) 35 U/L (15-37); Alanine Aminotransfer ALT/SGPT 49 U/L (16-61); Albumin, Serum 3.7 g/dL (3.2-5.0); Alkaline Phosphatase 65 U/L (45-117); Anion Gap 6 (5-15); BUN 12 mg/dL (7-18); BUN/Creat Ratio 14.1 RATIO (10-20); Calcium,Total 9.3 mg/dL (8.5-10.1); Chloride 102 mmol/L (98-107); Creatinine, Serum 0.85 mg/dL (0.70-1.30); EST Glomerular Filtration Rate 97 mL/min (>60); Est Glom Filt Rate - Afr Amer 118 mL/min (>60); Globulin 3.8 g/dL (2.2-4.2); Glucose 97 mg/dL (74-106); Potassium 4.2 mmol/L (3.5-5.1); Protein, Total 7.5 g/dL (6.4-8.2); Sodium Level 135 mmol/L (136-145); Thyroid Stim Hormone (TSH) 0.93 uIU/mL (0.358-3.74)
[2023-10-17 12:08] LABS: ANTINUCLEAR ANTIBODIES DIRECT Negative (Negative)
== END | disposition home or self-care (01) ==
LOC: BIMLAB 11:06
PROVIDERS: PCP Family Medicine; Visit Provider Physician Assistant
DX: J02.9 Acute pharyngitis, unspecified (principal); R61 Generalized hyperhidrosis; M79.10 Myalgia, unspecified site
CPT/HCPCS: 36415; 80053; 84443; 85025; 86038; 86225; 86235; 87502; 87635

== ENCOUNTER → 2024-12-20 | Outpatient (CLI) | payer BC, SELFPAY ==
[2024-12-20 15:45] LABS: Absolute Lymphocyte Count 1.85 X10^3/uL (0.83-4.51); Absolute Neutrophil Count 3.7 X10^3/uL (2.0-7.7); Basophil% 1.6 % (0-1); Eosinophil# 0.15 X10^3/uL; Eosinophils% 2.4 % (0-5); Hematocrit 40.3 % (40-54); Hemoglobin 13.4 g/dL (13.0-16.5); Lymphocyte # 1.85 X10^3/ul (0.83-4.51); Lymphocyte % 29.1 % (19-41); Mean Corp Hgb Conc 33.3 g/dL (32-36); Mean Corpuscular Hgb 23.1 pg (27.0-32.0); Mean Corpuscular Volume 69.5 fL (80-94); Mean Platelet Vol. 10.8 fl (6.2-12.0); Monocyte# 0.52 X10^3/uL; Monocyte% 8.2 % (0-10); NRBC Flagged by Analyzer 0 % (0-5); Neutrophil # 3.73 X10^3/uL (2.7-7.7); Neutrophil % 58.5 % (47-70); Platelet Count 283 K/mm3 (150-450); RBC Distribution Width CV 15.6 % (11.6-14.6); RBC Distribution Width SD 37.9 fl (35.1-43.9); White Blood Count 6.4 K/mm3 (4.4-11.0)
[2024-12-20 16:21] LABS: ALB/GLOB Ratio 1.3 RATIO (0.9-2.4); AST(SGOT) 27 U/L (<=37); Alanine Aminotransfer ALT/SGPT 26 U/L (<=46); Albumin, Serum 4.3 g/dL (3.4-4.8); Alkaline Phosphatase 78 U/L (40-129); Anion Gap 12 (5-15); BUN 13 mg/dL (4-19); BUN/Creat Ratio 15.7 RATIO (10-20); Calcium,Total 9.6 mg/dL (7.6-11.0); Carbon Dioxide 24.2 mmol/L (21.0-32.0); Chloride 101 mmol/L (98-108); Cholesterol 215 mg/dL (<=200); Creatinine, Serum 0.82 mg/dL (0.70-1.20); EST Glomerular Filtration Rate 100 (>60); Globulin 3.3 g/dL (2.2-4.2); Glucose 89 mg/dL (70-99); High Density Lipoprotein 49 mg/dL; Low Density Lipoprotein Calc. 142 mg/dL; PSA,Total - Annual Screen 1.62 ng/mL (0.02-4.00); Potassium 3.8 mmol/L (3.3-5.1); Protein, Total 7.5 g/dL (5.9-8.4); Sodium Level 137 mmol/L (133-145); Total Bilirubin 0.71 mg/dL (0.00-1.30); Triglycerides 124 mg/dL; Very Low Density Lipoprotein 25 mg/dL (5-40); cholesterol:hdl ratio screen 4.41
--- OUTSIDE RECORDS SUMMARY | 2024-12-20 21:48 | XMS RPT_ITS | CCD ---
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 Chino Calabrese Primary Care Provider [phone] Dr. Chino Calabrese Referring Provider [phone] Nitza FORMING MACHINE UPKEEP MECHANIC HELPER, FORMING MACHINE UPKEEP MECHANIC HELPER-C Javed Attending Provider [phone] Dr. Chino Calabrese Primary Care Provider [phone] Dr. Chino Calabrese Referring Provider [phone] Nitza FORMING MACHINE UPKEEP MECHANIC HELPER, FORMING MACHINE UPKEEP MECHANIC HELPER-C Javed Attending Provider [phone] Dr. Chino Calabrese Attending Provider [phone] Dr. Chino Calabrese Primary Care Provider [phone] Dr. Chino Calabrese Referring Provider [phone] MARZENA Jackson Attending Provider Dr. Gino Iqbal Attending Provider Dr. Chino Calabrese Attending Provider [phone] Dr. Chino Calabrese Primary Care Provider [phone] Dr. Chino Calabrese Referring Provider [phone] MARZENA Masters Attending Provider [phone] Jorge Masters Attending Unavailable Chino Calabrese Primary Care Unavailable Chino Calabrese Referring Unavailable Chino Calabrese Primary Care Unavailable Chino Calabrese Referring Unavailable Jorge Masters Attending Unavailable Chino Calabrese Primary Care Unavailable Jorge Masters Attending Unavailable Medications Current Medications Medication Drug Class(es) Dates Sig (Normalized) Sig (Original) hydroCHLOROthiazide 12.5 mg / losartan potassium 50 mg oral tablet (15 sources) Thiazide Diuretic, Angiotensin 2 Receptor Gibson Start: 08-11-2022 End: 03-16-2023 take 1 tablet by mouth once daily Losartan-Hydroc hlorothiazide Active 1 TABLET PO DAILY March 16, 2023 4:07pm Start: 06-25-2020 End: 08-11-2022 take 1 tablet by mouth once daily Losartan-Hydrochlorothiazide Discontinue d 1 TABLET PO DAILY December 25, 2020 8:26am August 11, 2022 4:55pm sildenafil 100 mg oral tablet (2 sources) Phosphodiesterase 5 Inhibitor Start: 03-16-2023 Sildenafil (Viagra) 100 mg tablet Active 100 MG PO DAILY March 16, 2023 12:00am administer 30 minutes to 4 hours before activity Completed/Discontinued Medications Medication Drug Class(es) Dates Sig (Normalized) Sig (Original) acetaminophen 500 mg oral tablet (5 sources) Start: 07-07-2018 End: 11-22-2018 take 1000 mg by mouth every eight hours Acetaminophen Discontinued 1000 MG PO EVERY 8 HOURS July 07, 2018 1:00am November 22, 2018 9:26am Albuterol Sulfate (2 sources) beta2-Adrenergic Agonist Start: 09-27-2018 End: 04-11-2019 take 1 puff(s) by inhalation every six hours Albuterol Sulfate (Proair Hfa) 90 mcg/actuation HFA aerosol inhaler Discontinued 1 - 2 PUFF INHALATION EVERY 6 HOURS 8.September 27, 2018 10:05am April 11, 2019 8:39am Albuterol Sulfate (Proair Hfa) 90 mcg/actuation HFA aerosol inhaler (3 sources) Start: 09-27-2018 End: 04-11-2019 take 1 puff(s) by inhalation every six hours Albuterol Sulfate (Proair Hfa) 90 mcg/actuation HFA aerosol inhaler Discontinued 1 - 2 PUFF INHALATION EVERY 6 HOURS 8.September 27, 2018 12:00am April 11, 2019 8:39am Start: 09-27-2018 End: 04-11-2019 take 1 puff(s) by inhalation every six hours Albuterol Sulfate (Proair Hfa) 90 mcg/actuation HFA aerosol inhaler Discontinued 1 - 2 PUFF INHALATION EVERY 6 HOURS 8. September 26, 2018 11:00pm April 11, 2019 7:39am amLODIPine 10 mg oral tablet (20 sources) Dihydropyridine Calcium Channel Gibson Start: 06-06-2018 End: 01-27-2021 take 10 mg by mouth once daily Amlodipine Discontinued 10 MG PO daily 90 October 21, 2020 8:46am January 27, 2021 5:10pm Start: 03-03-2018 End: 06-06-2018 take 5 mg by mouth once daily Amlodipine Discontinued 5 MG PO daily April 07, 2018 10:38am June 06, 2018 3:23pm aspirin 81 mg chewable tablet (15 sources) Platelet Aggregation Inhibitor, Nonsteroidal Anti-inflammatory Drug Start: 07-07-2018 End: 09-27-2018 take 81 mg by mouth twice daily at mealtime Aspirin Discontinued 81 MG PO TWICE DAILY WITH MEALS 60 July 07, 2018 1:00am September 27, 2018 9:52am Start: 06-23-2018 End: 07-07-2018 take 81 mg by mouth once daily Aspirin Discontinued 81 MG PO DAILY June 23, 2018 3:37pm July 07, 2018 7:22am Start: 04-21-2018 End: 06-23-2018 take 81 mg by mouth twice daily at mealtime Aspirin Discontinued 81 MG PO TWICE DAILY WITH MEALS 60 April 21, 2018 12:00am June 23, 2018 3:37pm atorvastatin 10 mg oral tablet (15 sources) HMG-CoA Reductase Inhibitor Start: 03-03-2018 End: 12-20-2018 take 10 mg by mouth once daily Atorvastatin Discontinued 10 MG PO DAILY 90 August 22, 2018 1:55pm December 20, 2018 1:22pm azilsartan medoxomil 80 mg oral tablet (20 sources) Angiotensin 2 Receptor Gibson Start: 03-03-2018 End: 04-11-2019 take 80 mg by mouth once daily Azilsartan Medoxomil Discontinued 80 MG PO daily 90 March 22, 2019 4:45pm April 11, 2019 8:59am azithromycin 250 mg oral tablet (5 sources) Macrolide Antimicrobial Start: 09-29-2018 End: 10-09-2018 Azithromycin Discontinued 0 PO .COMPLEX 6 September 29, 2018 12:00am October 09, 2018 2:28pm Take two tablets by mouth on day one then one tablet by mouth on days 2-5 benzonatate 100 mg oral capsule (5 sources) Non-narcotic Antitussive Start: 09-27-2018 End: 10-09-2018 take 1 capsule by mouth three times daily Benzonatate (Tessalon Perles) 100 mg capsule Discontinued 100 MG PO THREE TIMES A DAY September 27, 2018 12:00am October 09, 2018 2:28pm cyclobenzaprine hydrochloride 10 mg oral tablet (4 sources) Muscle Relaxant Start: 12-02-2022 End: 10-14-2023 take 10 mg by mouth three times daily Cyclobenzaprine Discontinued 10 MG PO THREE TIMES A DAY March 24, 2023 12:00am October 14, 2023 9:27am 12 hr dextromethorphan polistirex 6 mg/ml extended release suspension (5 sources) Uncompetitive K-nxigej-H-aspartat e Receptor Antagonist, Sigma-1 Agonist Start: 10-09-2018 End: 11-22-2018 take 1 mL by mouth every twelve hours Dextromethorphan Polistirex (Delsym 12 Hour) 30 mg/5 mL suspension,extended rel 12 hr Discontinued 10 ML PO Q12H 148 October 09, 2018 12:00am November 22, 2018 9:28am diazePAM 5 mg oral tablet (5 sources) Benzodiazepine Start: 03-12-2018 End: 03-29-2018 take 5 mg by mouth every eight hours Diazepam Discontinued 5 MG PO EVERY 8 HOURS March 12, 2018 12:00am March 29, 2018 1:54pm docusate sodium 50 mg / sennosides, skilled nursing 8.6 mg oral tablet (5 sources) Start: 07-07-2018 End: 09-27-2018 Sennosides-Docusate Sodium Discontinued 2 TABLET PO TWICE A DAY July 07, 2018 1:00am September 27, 2018 9:52am Continue until first bowel movement, then take as needed famciclovir 250 mg oral tablet (20 sources) Herpes Simplex Virus Nucleoside Analog DNA Polymerase Inhibitor Start: 06-12-2021 End: 10-14-2023 take 250 mg by mouth every twelve hours Famciclovir Discontinued 250 MG PO Q12H 60 August 25, 2022 12:31pm March 16, 2023 4:10pm Start: 01-03-2020 End: 03-20-2021 take 250 mg by mouth every twelve hours Famciclovir Discontinued 250 MG PO Q12H 60 October 14, 2020 12:28pm January 27, 2021 5:10pm famotidine 20 mg oral tablet (5 sources) Histamine-2 Receptor Antagonist Start: 07-07-2018 End: 04-11-2019 take 20 mg by mouth once daily Famotidine Discontinued 20 MG PO DAILY 30 July 07, 2018 1:00am April 11, 2019 8:40am fluticasone propionate 0.05 mg/actuat metered dose nasal spray (15 sources) Corticosteroid Start: 02-21-2018 End: 09-27-2018 Fluticasone Propionate (Flonase Allergy Relief) 50 mcg/actuation spray,suspension Discontinued 2 SPRAY INTRANASAL daily 47.4 February 22, 2018 8:29am April 07, 2018 10:39am hydroCHLOROthiazide 25 mg oral tablet (5 sources) Thiazide Diuretic Start: 11-29-2018 End: 05-22-2019 take 25 mg by mouth once daily Hydrochlorothiazide Discontinued 25 MG PO DAILY November 29, 2018 12:00am May 22, 2019 4:44pm losartan potassium 100 mg oral tablet (15 sources) Angiotensin 2 Receptor Gibson Start: 07-25-2019 End: 06-25-2020 take 100 mg by mouth once daily Losartan Discontinued 100 MG PO DAILY October 24, 2019 4:48pm June 25, 2020 5:22pm blood pressure Start: 04-11-2019 End: 07-25-2019 take 50 mg by mouth once daily Losartan Discontinued 5 0 MG PO DAILY April 11, 2019 12:00am July 25, 2019 10:02am blood pressure meloxicam 7.5 mg oral tablet (5 sources) Nonsteroidal Anti-inflammatory Drug Start: 07-07-2018 End: 09-27-2018 take 7.5 mg by mouth twice daily Meloxicam Discontinued 7.5 MG PO TWICE A DAY 60 July 07, 2018 1:00am September 27, 2018 9:51am methylPREDNISolone 4 mg oral tablet (5 sources) Corticosteroid Start: 10-09-2018 End: 11-22-2018 take 1 tablet by mouth once Methylprednisolone (Medrol (Vipul)) 4 mg tablets,dose pack Discontinued 0 PO per package directions October 09, 2018 12:00am November 22, 2018 9:28am PO PER PKG DIR oxyCODONE hydrochloride 5 mg oral tablet (10 sources) Opioid Agonist Start: 07-07-2018 End: 07-12-2018 take 5-10 mg by mouth every four hours as needed Oxycodone Discontinued 5 - 10 MG PO EVERY 4 HOURS NEEDED 60 July 07, 2018 1:00am July 12, 2018 1:07am Start: 04-21-2018 End: 04-27-2018 take 5-10 mg by mouth every four hours as needed Oxycodone Discontinued 5 - 10 MG PO EVERY 4 HOURS NEEDED 80 April 21, 2018 12:00am April 27, 2018 12:13am predniSONE 20 mg oral tablet (9 sources) Start: 03-24-2023 End: 10-14-2023 take 60 mg by mouth once daily Prednisone Discontinued 60 MG PO DAILY March 24, 2023 12:00am October 14, 2023 9:28am Start: 12-02-2022 End: 10-14-2023 take 4 tablets by mouth once daily, then take 3 tablets by mouth once daily, then take 2 tablets by mouth once daily, then take 1 tablet by mouth once daily Prednisone Discontinued 10 MG PO As Directed December 02, 2022 12:00am October 14, 2023 9:28am 4 tablets daily x3 days, then 3 tablets daily x3 days, then 2 tablets daily x3 days, then 1 tablet daily x3 days Start: 09-27-2018 End: 10-09-2018 take 40 mg by mouth once daily at mealtime Prednisone Discontinued 40 MG PO daily September 27, 2018 12:00am October 09, 2018 2:48pm administer with food or milk rosuvastatin calcium 20 mg oral tablet (20 sources) HMG-CoA Reductase Inhibitor Start: 12-16-2020 End: 03-16-2023 take 20 mg by mouth once daily Rosuvastatin Discontinued 20 MG PO DAILY August 25, 2022 12:31pm March 16, 2023 4:10pm Start: 06-26-2020 End: 12-16-2020 take 10 mg by mouth once daily Rosuvastatin Discontinu ed 10 MG PO DAILY June 26, 2020 1:00am December 16, 2020 12:01pm sertraline 50 mg oral tablet (7 sources) Serotonin Reuptake Inhibitor Start: 12-01-2021 End: 08-11-2022 take 50 mg by mouth once daily Sertraline Discontinued 50 MG PO daily December 24, 2021 12:53pm August 11, 2022 4:55pm thiamine 250 mg oral tablet (5 sources) Start: 07-25-2019 End: 01-27-2021 take 250 mg by mouth once daily Thiamine Hcl (Vitamin B1) Discontinued 250 MG PO DAILY July 25, 2019 1:00am January 27, 2021 5:17pm traMADol hydrochloride 50 mg oral tablet (5 sources) Opioid Agonist Start: 11-14-2017 End: 03-29-2018 take 50 mg by mouth every six hours Tramadol Discontinued 50 MG PO EVERY 6 HOURS November 14, 2017 12:00am March 29, 2018 1:54pm traZODone hydrochloride 150 mg oral tablet (20 sources) Serotonin Reuptake Inhibitor Start: 02-20-2020 End: 01-27-2021 take 150 mg by mouth once daily Trazodone Discontinued 150 MG PO DAILY February 20, 2020 5:17pm January 27, 2021 5:10pm Start: 11-22-2018 End: 02-20-2020 take 100 mg by mouth once daily Trazodone Discontinued 100 MG PO DAILY June 07, 2019 10:30am October 24, 2019 4:48pm Start: 06-06-2018 End: 11-22-2018 take 50 mg by mouth once daily Trazodone Discontinued 50 MG PO DAILY August 15, 2018 2:29pm November 22, 2018 11:49am Problems Active Problems Problem Classification Problem Date Documented Da te Episodic/Chronic Abdominal pain (5 sources) Abdominal pain; Translations: [Unspecified abdominal pain] 04-11-2019 Episodic Alcohol-related disorders (6 sources) Nondependent alcohol abuse in remission; Translations: [Alcohol abuse, in remission] 01-28-2021 Chronic Anxiety disorders (6 sources) Anxiety; Translations: [Anxiety disorder, unspecified] Chronic Chronic obstructive pulmonary disease and bronchiectasis (5 sources) Bronchitis; Translations: [Bronchitis, not specified as acute or chronic] 10-09-2018 Episodic Disorders of lipid metabolism (11 sources) Hypercholesterolemi a; Translations: [Pure hypercholesterolemi a, unspecified] 07-05-2018 Chronic Essential hypertension (13 sources) Hypertensive disorder; Translations: [Essential (primary) hypertension] Chronic Genitourinary symptoms and ill-defined conditions (3 sources) Increased frequency of urination; Translations: [Frequency of micturition] 03-16-2023 Episodic Other connective tissue disease (1 source) Presence of artificial hip joint, bilateral; Translations: [Presence of artificial hip joint, bilateral] Onset: 05-02-2024 Chronic Other connective tissue disease (5 sources) Swelling of bilateral feet; Translations: [Other specified soft tissue disorders] 05-06-2021 Episodic Other connective tissue disease (1 source) Muscle pain; Translations: [Myalgia, unspecified site] 10-14-2023 Episodic Other injuries and conditions due to external causes (5 sources) Foreign body in rectum; Translations: [Foreign body in anus and rectum, initial encounter] 06-16-2019 Episodic Other skin disorders (3 sources) Disorder of skin of lower limb; Translations: [Disorder of the skin and subcutaneous tissue, unspecified] 08-11-2022 Episodic Other skin disorders (1 source) Disorder of the skin and subcutaneous tissue, unspecified; Translations: [Unspecified disorder of skin and subcutaneous tissue] 08-11-2022 Episodic Other skin disorders (1 source) Night sweats; Translations: [Generalized hyperhidrosis] 10-14-2023 Episodic Residual codes; unclassified (5 sources) Hypersomnia; Translations: [Hypersomnia, unspecified] 06-02-2021 Chronic Residual codes; unclassified (4 sources) Obstructive sleep apnea syndrome; Translations: [Obstructive sleep apnea (adult) (pediatric)] 08-12-2022 Chronic Residual codes; unclassified (2 sources) Obstructive sleep apnea (adult) (pediatric); Translations: [Obstructive sleep apnea (adult)(pediatric)] Chronic Spondylosis; intervertebral disc disorders; other back problems (20 sources) Chronic low back pain; Translations: [Chronic low back pain] 01-28-2021 Episodic Sprains and strains (9 sources) Low back strain; Translations: [Strain of muscle, fascia and tendon of lower back, initial encounter] 12-02-2022 Episodic Past or Other Problems Problem Classification Problem Date Documented Da te Episodic/Chronic Other connective tissue disease (1 source) Myalgia, unspecified site; Translations: [Myalgia, unspecified site] Onset: 10-14-2023 Episodic Other skin disorders (2 sources) Generalized hyperhidrosis; Translations: [Generalized hyperhidrosis] Onset: 10-14-2023 10-14-2023 Episodic Other upper respiratory infections (3 sources) Sore throat symptom; Translations: [Acute pharyngitis, unspecified] Onset: 10-19-2023 10-14-2023 Episodic Results Test Name Value Interpretation Reference Range Facility Internal Medicine Office Vis jaki 05-02-2024 Internal Medicine Office Visit [facility] [address] [place] [address] OFFICE VISIT Date of Service: 05/02/24 MR#: [id number] Acct: [id number] Name: DENNIS ANAYA Rep #: [id number] : 1965 Provider: MARZENA Pérez Age/Sex: 58/M Location: [facility] Status: Signed Intake Vital Signs 10/14/23 09:28 05/02/24 14:56 Height 5 ft 4 in 5 ft 4 in Weight: 186 lb 2 oz 187 lb BMI 31.9 32.1 BP 128/88 H 178/108 H Blood Pressure Location Lt brachial Rt brachial Position Sitting Sitting Respiration 16 16 Pulse 87 81 Pulse Source Monitor Monitor Temp 97.8 F 99.2 F H Temp Source Temporal Temporal Pulse Oximetry (%) 98 99 Oxygen Delivery Method room air room air Intake Visit Reasons: follow up Chief Complaint: back pain Is patient in pain?: Yes (LOWER BACK) Pain scale (1-10): 6 Allergies No Known Allergies Allergy (Verified 05/02/24 14:54) Medications ???Medication ???Instructions ???Recorded ???Confirmed ???Type losartan 50 mg-hydrochlorothiazi de 1 tab PO DAILY #90 tabs 04/10/24 05/02/24 Rx 12.5 mg tablet rosuvastatin 20 mg tablet 20 mg PO DAILY #90 tabs 04/10/24 05/02/24 Rx sildenafil 100 mg tablet (Viagra) 100 mg PO DAILY PRN sexual 04/10/24 05/02/24 Rx activity #7 tabs Handicap placard #1 ea 05/02/24 05/02/24 Rx cyclobenzaprine 5 mg tablet See Rx Instructions PO QHS PRN 05/02/24 05/02/24 Rx muscle spasm #30 tabs etodolac 300 mg capsule 300 mg PO TID #40 caps 05/02/24 05/02/24 Rx Have you fallen in the past year?: No PFSH Medical History Strain of left hip Strain of right hip Lumbar radiculopathy, acute Lumbar strain Skin lesion of left lower extremity Encounter for preventative adult health care examination SANTOS (obstructive sleep apnea) HTN (hypertension) Hypersomnia Chronic low back pain Anxiety Alcohol abuse, in remission High cholesterol High blood pressure Surgical History History of lumbar surgery History of total right hip replacement History of total left hip replacement History of cervical spinal surgery History of hernia repair Family History Mother Cancer Sister Diabetes Brother Diabetes Social History Smoking Status: Former smoker alcohol intake: never substance use type: does not use what type of physical activity do you participate in: none HPI HPI Chief Complaint: back pain Details: DENNIS ANAYA, is a 58 M who presents to the office today for low back pains. Patient states that he started to have some pains for about 2 weeks now. Patient has had chronic back pains having had both surgery on his neck as well as on his lumbar spine. He states that he has a pretty strenuous job and periodically will get a flare-up of pains to where he just can't keep performing his job responsibilities. Pains at this time are located in the lower back both right and left side. He gets a little radiation into the right groin area but mainly stays in the lower back. No radicular pains into the legs. Pains are worse today with movements but also with prolonged standing. He states that he has iced the area mainly occasionally (rarely) using heat. He tries not to take NSAIDS. He has previously taken muscle relaxants although he states that they make him drowsy and so he can't really take them at work. ROS Const Constitutional: No body ache, chills, excessive sweating, fatigue, fever(s), frequent falls, headache(s), snoring, weakness, sleep problems or change in appetite Eyes Eyes: No blurry vision, change in vision or Light sensitivity ENT ENT: No abnormal hearing, ear or mastoid pain, tinnitus, nasal congestion, nasal discharge, headache(s), neck pain or sore throat Resp Respiratory: No cough, shortness of breath, snoring or wheezing Cardio Cardiology: No chest pain at rest, chest pain with exertion, excessive sweating, shortness of breath, dyspnea on exertion, lightheadedness, orthopnea or palpitations Gastro GI: No abdominal pain, change in bowel habits, constipation, cramping, diarrhea or nausea/dyspepsia Genitourinary Male: No burning urination, painful urination, urinary incontinence or urinary frequency Musc Musculoskeletal: Positive for back pain (LOWER BACK PAIN); No abnormal gait, joint pain, limited range of motion, muscle weakness, neck pain or numbness Skin Skin: No dry skin, redness, lesions, itchy eyes, rash or wounds Neuro Neurology: No abnormal gait, abnormal hearing, weakness, frequent falls, headache(s), memory loss or numbness Psych Psychiatric: No anxiety, No change in appetite, No depression, No memory loss, No panic attacks and N (more content not included)... Normal [facility] BRENDA w/ Reflex Mult Confirmon 10-17-2023 BRENDA,DIRECT Negative Normal Negative [facility] Comment on above: Result Comment: Perf ormed at: CB - [facility] [place] [id number] Master Automotive Glass Technician: Joshua Bentley PhD, Phone: [phone] Performed By: #### L 3400.6383, L501.2220, L500.4050, L3100.5450, L100.0100 #### [facility] [address] [place] [address]. [place], [address] Absolute lymphocyte countOrd ered By: Jorge Guillermo on 10-14-2023 Lymphocytes Auto (Unsp spec) [#/Vol] 1.21 10*3/uL 0.83-4.51 [facility] Automated lymphocyte count a s percentage of total leukocytesOrdered By: Jorge Guillermo on 10-14-2023 Lymphocytes/100 WBC Auto (Unsp spec) 20.2 % 19-41 [facility] Basophil percentageOrdered B y: Jorge Guillermo on 10-14-2023 Basophils/100 WBC (Bld) 1.2 % 0-1 [facility] Bilirubin [Mass/Vol] 0.80 mg/dL 0.20-1.00 [facility] Comment on above: For patients on eltr ombopag therapy, use of Dimension [place] TBIL is not recommended. Chloride [Moles/Vol] 102 mmol/L 98-107 [facility] Eosinophils/100 WBC (Bld) 3.5 % 0-5 [facility] Glucose [Mass/Vol] 97 mg/dL 74-106 [facility] Hemoglobin (Bld) [Mass/Vol] 13.4 g/dL 13.0-16.5 [facility] Monocytes/100 WBC (Bld) 8.2 % 0-10 [facility] Neutrophils (Bld) [#/Vol] 4.0 10*3/uL 2.0-7.7 [facility] Neutrophils/100 WBC (Bld) 66.6 % 47-70 [facility] Potassium [Moles/Vol] 4.2 mmol/L 3.5-5.1 [facility] Protein [Mass/Vol] 7.5 g/dL 6.4-8.2 [facility] Sodium [Moles/Vol] 135 mmol/L 136-145 [facility] WBC (Bld) [#/Vol] 6.0 10*3/uL 4.4-11.0 [facility] CBC W/Diff, Automatedon 03- Absolute Lymph 1.21 X10 3/uL Normal 0.83-4.51 [facility] Comment on above: Performed By: #### L 3400.2100, L501.9520, L500.4050, L3100.5450, L100.0100 #### [facility] [address] [place], [address] Absolute Neut 4.0 X10 3/uL Normal 2.0-7.7 [facility] Comment on above: Performed By: #### L 3400.2100, L501.9520, L500.4050, L3100.5450, L100.0100 #### [facility] [address] [place], [address] Basophils/100 WBC (Bld) 1.2 % High 0-1 [facility] Comment on above: Performed By: #### L 3400.2100, L501.9520, L500.4050, L3100.5450, L100.0100 #### [facility] [address] [place], [address] Eosinophils/100 WBC (Bld) 3.5 % Normal 0-5 [facility] Comment on above: Performed By: #### L 3400.2100, L501.9520, L500.4050, L3100.5450, L100.0100 #### [facility] [address] [place], [address] Erythrocyte distribution width (RBC) [Ratio] 16.0 % High 11.6-14.6 [facility] Comment on above: Performed By: #### L 3400.2100, L501.9520, L500.4050, L3100.5450, L100.0100 #### [facility] [address] [place], [address] Hematocrit (Bld) [Volume fraction] 41.9 % Normal 40-54 [facility] Comment on above: Performed By: #### L 3400.2100, L501.9520, L500.4050, L3100.5450, L100.0100 #### [facility] [address] [place], [address] Hemoglobin (Bld) [Mass/Vol] 13.4 g/dL Normal 13.0-16.5 [facility] Comment on above: Performed By: #### L 3400.2100, L501.9520, L500.4050, L3100.5450, L100.0100 #### [facility] [address] [place], [address] IG% 0.300 Normal 0.0-0.9 [facility] Comment on above: Result Comment: IG% - Immature Granulocytes (promyelocytes, myelocytes and metamyelocytes) > 1% indicates that a LEFT SHIFT is Present. Performed By: #### L 3400.2100, L501.9520, L500.4050, L3100.5450, L100.0100 #### [facility] [address] [place], [address] Lymphocytes/100 WBC (Bld) 20.2 % Normal 19-41 [facility] Comment on above: Performed By: #### L 3400.2100, [id number], L500.4050, L3100.5450, L100.0100 #### [facility] [address] [place], [address] MCH (RBC) [Entitic mass] 22.7 pg Low 27.0-32.0 [facility] Comment on above: Performed By: #### L 3400.2100, L501.9520, L500.4050, L3100.5450, L100.0100 #### [facility] [address] [place], [address] MCHC (RBC) [Mass/Vol] 32.0 g/dL Normal 32-36 [facility] Comment on above: Performed By: #### L 3400.2100, L501.9520, L500.4050, L3100.5450, L100.0100 #### [facility] [address] [place], [address] MCV (RBC) [Entitic vol] 70.9 fL Low 80-94 [facility] Comment on above: Performed By: #### L 3400.2100, L501.9520, L500.4050, L3100.5450, L100.0100 #### [facility] [address] [place], [address] Monocytes/100 WBC (Bld) 8.2 % Normal 0-10 [facility] Comment on above: Performed By: #### L 3400.2100, L501.9520, L500.4050, L3100.5450, L100.0100 #### [facility] [address] [place], [address] Neutrophils/100 WBC (Bld) 66.6 % Normal 47-70 [facility] Comment on above: Performed By: #### L 3400.2100, L501.9520, L500.4050, L3100.5450, L100.0100 #### [facility] [address] [place], [address] Nucleated RBC (Bld) [#/Vol] 0 10*3/uL Normal 0-5 [facility] Comment on above: Performed By: #### L 3400.2100, L501.9520, L500.4050, L3100.5450, L100.0100 #### [facility] [address] [place], [address] Platelet mean volume (Bld) [Entitic vol] 11.0 fL Normal 6.2-12.0 [facility] Comment on above: Performed By: #### L 3400.2100, L501.9520, L500.4050, L3100.5450, L100.0100 #### [facility] [address] [place], [address] Platelets (Bld) [#/Vol] 290 10*3/uL Normal 150-450 [facility] Comment on above: Performed By: #### L 3400.2100, L501.9520, L500.4050, L3100.5450, L100.0100 #### [facility] [address] [place], [address] RBC (Bld) [#/Vol] 5.91 10*6/uL Normal 4.6-6.2 [facility] Comment on above: Performed By: #### L 3400.2100, L501.9520, L500.4050, L3100.5450, L100.0100 #### [facility] [address] [place], [address] RDW SD 38.9 fl Normal 35.1-43.9 [facility] Comment on above: Performed By: #### L 3400.2100, L501.9520, L500.4050, L3100.5450, L100.0100 #### [facility] [address] [place], [address] WBC (Bld) [#/Vol] 6.0 10*3/uL Normal 4.4-11.0 [facility] Comment on above: Performed By: #### L 3400.2100, L501.9520, L500.4050, L3100.5450, L100.0100 #### [facility] [address] [place], [address] Comprehensive Metabolic Prof [facility] 10-14-2023 Albumin [Mass/Vol] 3.7 g/dL Normal 3.2-5.0 [facility] Comment on above: Performed By: #### L 3400.2100, L501.9520, L500.4050, L3100.5450, L100.0100 #### [facility] [address] [place], [address] Albumin/Globulin [Mass ratio] 1.0 {ratio} Normal 0.9-2.4 [facility] Comment on above: Performed By: #### L 3400.2100, L501.9520, L500.4050, L3100.5450, L100.0100 #### [facility] [address] [place], [address] ALK P 65 U/L Normal 45-117 [facility] Comment on above: Performed By: #### L 3400.2100, L501.9520, L500.4050, L3100.5450, L100.0100 #### [facility] [address] [place], [address] ALT [Catalytic activity/Vol] 49 U/L Normal 16-61 [facility] Comment on above: Performed By: #### L 3400.2100, L501.9520, L500.4050, L3100.5450, L100.0100 #### [facility] [address] [place], [address] AST [Catalytic activity/Vol] 35 U/L Normal 15-37 [facility] Comment on above: Performed By: #### L 3400.2100, L501.9520, L500.4050, L3100.5450, L100.0100 #### [facility] [address] [place], [address] Bilirubin [Mass/Vol] 0.80 mg/dL Normal 0.20-1.00 [facility] Comment on above: Result Comment: For patients on eltrombopag therapy, use of Dimension [place] TBIL is not recommended. Performed By: #### L 3400.2100, L501.9520, L500.4050, L3100.5450, L100.0100 #### [facility] [address] [place], [address] BUN/CRE 14.1 RATIO Normal 10-20 [facility] Comment on above: Performed By: #### L 3400.2100, L501.9520, L500.4050, L3100.5450, L100.0100 #### [facility] [address] [place], [address] CA,Total 9.3 mg/dL Normal 8.5-10.1 [facility] Comment on above: Performed By: #### L 3400.2100, L501.9520, L500.4050, L3100.5450, L100.0100 #### [facility] [address] [place], [address] Chloride [Moles/Vol] 102 mmol/L Normal 98-107 [facility] Comment on above: Performed By: #### L 3400.2100, L501.9520, L500.4050, L3100.5450, L100.0100 #### [facility] [address] [place], [address] CO2 [Moles/Vol] 27.0 mmol/L Normal 21.0-32.0 [facility] Comment on above: Performed By: #### L 3400.2100, L501.9520, L500.4050, L3100.5450, L100.0100 #### [facility] [address] [place], [address] Creatinine [Mass/Vol] 0.85 mg/dL Normal 0.70-1.30 [facility] Comment on above: Result Comment: The validity of the calculated GFR GFRAA in patients over 70 years has not been determined. Clinical correlation is essential. Performed By: #### L 3400.2100, L501.9520, L500.4050, L3100.5450, L100.0100 #### [facility] [address] [place], [address] EST GFR - AA 118 mL/min Normal >60 [facility] Comment on above: Result Comment: Afri can Jamaican GFR Calc Performed By: #### L 3400.2100, L501.9520, L500.4050, L3100.5450, L100.0100 #### [facility] [address] [place], [address] GAP 6 Normal 5-15 [facility] Comment on above: Performed By: #### L 3400.2100, L501.9520, L500.4050, L3100.5450, L100.0100 #### [facility] [address] [place], [address] GFR/1.73 sq M.predicted among non-blacks MDRD (S/P/Bld) [Vol rate/Area] 97 mL/min/{1.73_m2} Normal >60 [facility] Comment on above: Result Comment: Non- GFR Calc Performed By: #### L 3400.2100, L501.9520, L500.4050, L3100.5450, L100.0100 #### [facility] [address] [place], [address] Globulin (S) [Mass/Vol] 3.8 g/dL Normal 2.2-4.2 [facility] Comment on above: Performed By: #### L 3400.2100, L501.9520, L500.4050, L3100.5450, L100.0100 #### [facility] [address] [place], [address] Glucose [Mass/Vol] 97 mg/dL Normal 74-106 [facility] Comment on above: Performed By: #### L 3400.2100, L501.9520, L500.4050, L3100.5450, L100.0100 #### [facility] [address] [place], [address] Potassium [Moles/Vol] 4.2 mmol/L Normal 3.5-5.1 [facility] Comment on above: Performed By: #### L 3400.2100, L501.9520, L500.4050, L3100.5450, L100.0100 #### [facility] [address] [place], [address] Sodium [Moles/Vol] 135 mmol/L Low 136-145 [facility] Comment on above: Performed By: #### L 3400.2100, L501.9520, L500.4050, L3100.5450, L100.0100 #### [facility] [address] [place], [address] T PROT 7.5 g/dL Normal 6.4-8.2 [facility] Comment on above: Performed By: #### L 3400.2100, L501.9520, L500.4050, L3100.5450, L100.0100 #### [facility] [address] [place], [address] Urea nitrogen [Mass/Vol] 12 mg/dL Normal 7-18 [facility] Comment on above: Performed By: #### L 3400.2100, L501.9520, L500.4050, L3100.5450, L100.0100 #### [facility] [address] [place], [address] Detection of any of influenz a virus A H1 and H3, and influenza virus B RNA by probe aOrdered By: Jorge Guillermo on 10-14-2023 FLUAV H1+H3+FLUBV RNA JUSTIN+probe Ql (Unsp spec) [facility] Determination of erythrocyte mean corpuscular volume (MCV)Ordered By: Jorge Guillermo on 10-14-2023 MCV (RBC) [Entitic vol] 70.9 fL 80-94 [facility] Erythrocyte distribution wid th ratioOrdered By: Jorge Guillermo on 10-14-2023 Erythrocyte distribution width (RBC) [Ratio] 16.0 % 11.6-14.6 [facility] Erythrocyte distribution wid th standard deviationOrdered By: Jorge Guillermo on 10-14-2023 Erythrocyte distribution width (RBC) [Entitic vol] 38.9 fL 35.1-43.9 [facility] FLU PANEL MOLECULARon 2023 FLU PANEL Normal Reference Range = Negative GeneXpert Instrument, PCR method INFLUENZA A Negative INFLUENZA B Negative Normal [facility] Comment on above: Performed By: #### M 100.019, M100.641 #### [facility] [address] [place], [place], [address] Hematocrit Auto (Bld) [Volum e fraction]Ordered By: Jorge Guillermo on 10-14-2023 Hematocrit (Bld) [Volume fraction] 41.9 % 40-54 [facility] Immature granulocytes/100 WB C Auto (Bld)Ordered By: Jorge Guillermo on 10-14-2023 Immature granulocytes/100 WBC (Bld) 0.300 % 0.0-0.9 [facility] Comment on above: IG% - Immature Granu locytes (promyelocytes, myelocytes and metamyelocytes) > 1% indicates that a LEFT SHIFT is Present. Influenzae A AND B, Serumon 10-14-2023 INFLUENZA A Ab Normal Neg:<1:8 [facility] Comment on above: Result Comment: ZEESHANO R PROVIDER WANTS FLU SWAB Performed By: #### L 3400.2100, L501.9520, L500.4050, L3100.5450, L100.0100 #### [facility] [address] [place], [address] INFLUENZA B Ab Normal Neg:<1:8 [facility] Comment on above: Result Comment: BIJAN R PROVIDER WANTS FLU SWAB Performed By: #### L 3400.2100, L501.9520, L500.4050, L3100.5450, L100.0100 #### [facility] [address] [place], [place], [id number] Internal Medicine Office Vis iton 10-14-2023 Internal Medicine Office Visit [facility] [address] [place] [address] [place] [address] OFFICE VISIT Date of Service: 10/14/23 MR#: [id number] Acct: [id number] Name: DENNIS ANAYA Ina Rep #: [id number] : 1965 Provider: MARZENA Pérez Age/Sex: 58/M Location: [facility] Status: Signed Intake Vital Signs 03/24/23 13:27 10/14/23 09:28 Height 5 ft 4 in 5 ft 4 in Weight: 186 lb 2 oz BMI 31.9 BP 128/88 H Blood Pressure Location Lt brachial Position Sitting Respiration 16 Pulse 87 Pulse Source Monitor Temp 97.8 F Temp Source Temporal Pulse Oximetry (%) 98 Oxygen Delivery Method room air Intake Visit Reasons: acute - congestion/body aches x8days Crop Adjuster Required: No Accompanied by: Self Is patient in pain?: No Allergies No Known Allergies Allergy (Verified 10/14/23 09:23) Medications losartan 50 mg-hydrochlorothiazi de 12.5 mg tablet 1 tab PO DAILY #90 tabs 03/16/23 [Rx Confirmed 10/14/23] rosuvastatin 20 mg tablet 20 mg PO DAILY #90 tabs 03/16/23 [Rx Confirmed 10/14/23] sildenafil 100 mg tablet (Viagra) 100 mg PO DAILY PRN sexual activity #7 tabs 03/16/23 [Rx Confirmed 10/14/23] PFSH Medical History Alcohol abuse, in remission Anxiety Chronic low back pain Encounter for preventative adult health care examination High blood pressure High cholesterol HTN (hypertension) Hypersomnia Lumbar radiculopathy, acute Lumbar strain SANTOS (obstructive sleep apnea) Skin lesion of left lower extremity Strain of left hip Strain of right hip Surgical History History of cervical spinal surgery History of hernia repair History of lumbar surgery History of total left hip replacement History of total right hip replacement Family History Mother Cancer Sister Diabetes Brother Diabetes Social History Smoking Status: Former smoker alcohol intake: never substance use type: does not use what type of physical activity do you participate in: none HPI HPI Details: DENNIS ANAYA, is a 58 M who presents to the office today for the past 8 days he has just had issues of where he wakes up in the middle of the night and just has the sweats and just some muscle achiness. He has had a few episodes of loose stools scattered over the past 8 days. He states that he does not have loose stools daily and definitely not multiple times daily. He denies any abdominal pains. He has had a minor sore throat which has been on and off for a few days now. He has no problems swallowing (food or drink) or pains with talking. He denies having pains int he neck or any swelling of the neck / glands. HE states that he has a minor runny nose. He denies any coughing, nasal congestions, shortness of breath, chest pains / pressure (exertional or non-exertional), orthopnea, indigestion / reflux, or urinary changes. ROS Const Constitutional: Positive for body ache, chills, excessive sweating, decreased energy and sleep problems; No fatigue, frequent falls, headache(s), snoring, weakness or change in appetite Eyes Eyes: No blurry vision, change in vision, eye pain or Light sensitivity ENT ENT: Positive for sore throat; No abnormal hearing, ear or mastoid pain, tinnitus, nasal congestion, headache(s) or neck pain Resp Respiratory: No cough, shortness of breath, snoring or wheezing Cardio Cardiology: Positive for excessive sweating; No chest pain at rest, chest pain with exertion, dyspnea on exertion, lightheadedness, orthopnea or palpitations Gastro GI: Positive for diarrhea; No abdominal pain, change in bowel habits, constipation, cramping, nausea/dyspepsia or vomiting Genitourinary Male: No burning urination, painful urination, urinary incontinence or urinary frequency Musc Musculoskeletal: No abnormal gait, joint pain, back pain, limited range of motion, muscle weakness, neck pain or numbness Skin Skin: No dry skin, redness, lesions, itchy eyes, rash or wounds Neuro Neurology: No abnormal gait, abnormal hearing, weakness, frequent falls, headache(s), memory loss or numbness Psych Psychiatric: No anxiety, No change in appetite, No depression, No memory loss and No Thoughts of harming yourself/Others Endo Endocrine: Positive for excessive sweating; No cold intolerance, fatigue, flushing, heat intolerance, increased thirst/drinking or increased hunger Aller/Imm Allergy/Immunologic: No itchy eyes, seasonal allergy symptoms, hives or wheezing Matt/Lymp Hematologic/Lymphati c: No easy bleeding or easy bruising Exam Const General: cooperative, healthy appearing, comfortable, no acute distress, well developed and well (more content not included)... Normal [facility] - Chemistry and C hemistry - challengeOrdered By: Jorge Guillermo on 10-14-2023 Albumin/Globulin [Mass ratio] 1.0 {ratio} 0.9-2.4 [facility] ALP [Catalytic activity/Vol] 65 U/L 45-117 [facility] ALT [Catalytic activity/Vol] 49 U/L 16-61 [facility] CO2 [Moles/Vol] 27.0 mmol/L 21.0-32.0 [facility] Globulin (S) [Mass/Vol] 3.8 g/dL 2.2-4.2 [facility] Urea nitrogen/Creatinine [Mass ratio] 14.1 mg/mg 10-20 [facility] - Hematology and Cell countsOrdered By: Jorge Guillermo on 10-14-2023 MCH (RBC) [Entitic mass] 22.7 pg 27.0-32.0 [facility] MCHC (RBC) [Mass/Vol] 32.0 g/dL 32-36 [facility] Nucleated RBC/100 WBC (Bld) [Ratio] 0 % 0-5 [facility] Platelet mean volume (Bld) [Entitic vol] 11.0 fL 6.2-12.0 [facility] Platelets (Bld) [#/Vol] 290 10*3/uL 150-450 [facility] - Microbiology an d Antimicrobial susceptibilityOrdered By: Jorge Guillermo on 10-14-2023 SARS-CoV-2 (COVID-19) RNA JUSTIN+probe Ql (Unsp spec) [facility] M100.019on 10-14-2023 M100.019 Normal Reference Range = Negative GeneXpert Instrument, PCR method SARS-CoV-2 (COVID 19) Negative Normal [facility] Comment on above: Performed By: #### M 100.019, M100.641 #### [facility] [address] [place] [address], [address] No Panel InformationOrdered By: Jorge Guillermo on 10-14-2023 Anti-Nuclear Antibody Screen Negative Negative [facility] Comment on above: Performed at: [address] [id number] Director: Joshua Bentley PhD, Phone: [phone] [employer] B Antibody Not Reportable [facility] Estimated GFR (MDRD) Amer 118 mL/min >60 [facility] Comment on above: GFR Calc Estimated GFR (MDRD) Non-Af Amer 97 mL/min >60 [facility] Comment on above: Non- GFR Calc BELKIS-1 Antibody Not Reportable [facility] [employer] Antibody Not Reportable [facility] SM Antibody Not Reportable [facility] SS-A/Ro IgG Antibody Not Reportable [facility] SS-B/La IgG Antibody Not Reportable [facility] RBC Auto (Bld) [#/Vol]Ordere d By: Jorge Guillermo on 10-14-2023 RBC (Bld) [#/Vol] 5.91 10*6/uL 4.6-6.2 [facility] Serum DNA double strand anti body assay (units/volume)Ordered By: Jorge Guillermo on 10-14-2023 DNA double strand Ab Qn (S) Not Reportable [facility] Serum Scl-70 antibody assay (units/volume)Ordered By: Jorge Guillermo on 10-14-2023 SCL-70 extractable nuclear Ab Qn (S) Not Reportable [facility] Serum or plasma calcium caity urement (mass/volume)Ordered By: Jorge Guillermo on 10-14-2023 Calcium [Mass/Vol] 9.3 mg/dL 8.5-10.1 [facility] Serum or plasma creatinine m easurement (mass/volume)Ordered By: Jorge Guillermo on 10-14-2023 Creatinine [Mass/Vol] 0.85 mg/dL 0.70-1.30 [facility] Comment on above: The validity of the calculated GFR & GFRAA in patients over 70 years has not been determined. Clinical correlation is essential. Serum or plasma thyroid stim ulating hormone (TSH) measurement (units/volume)Ordered By: Jorge Guillermo on 10-14-2023 TSH Qn 0.93 uIU/mL 0.358-3.74 [facility] Serum or plasma urea nitroge n measurement (mass/volume)Ordered By: Jorge Guillermo on 10-14-2023 Urea nitrogen [Mass/Vol] 12 mg/dL 7-18 [facility] Thin prep Papanicolaou smear with manual screeningOrdered By: Jorge Guillermo on 10-14-2023 Thin prep Papanicolaou smear with manual screening 3.7 g/dL 3.2-5.0 [facility] Thin prep Papanicolaou smear with manual screening 35 U/L 15-37 [facility] Thin prep Papanicolaou smear with manual screening 6 5-15 [facility] Thyroid Stim Hormone (TSH)on 10-14-2023 TSH 0.93 uIU/mL Normal 0.358-3.74 [facility] Comment on above: Performed By: #### L 3400.2100, L501.9520, L500.4050, L3100.5450, L100.0100 #### [facility] [address] [place], [address] Basophil percentageOrdered B y: Chino Calabrese on 03-22-2023 Cholesterol [Mass/Vol] 253 mg/dL <200 [facility] Comment on above: <200 mg/dL Desirable 200-240 mg/dL Borderline >240 mg/dL High Risk Triglyceride [Mass/Vol] 174 mg/dL <199 [facility] Comment on above: The drugs N-Acetylcy steine and Metamizole may falsely depress this assay.Serum Triglycerides Reference Interval Normal <150 mg/dL Borderline high 150 - 199 mg/dL High 200 - 499 mg/dL Very High > or = 500 mg/dL Iron measurement (mass/mass) Ordered By: Javed Goddard on 03-22-2023 Iron (Unsp spec) [Mass/Mass] 142 ug/dL 65-175 [facility] - Chemistry and C hemistry - challengeOrdered By: Javed Goddard on 03-22-2023 Cobalamin (Vitamin B12) [Mass/Vol] 342 pg/mL 211-911 [facility] No Panel InformationOrdered By: Chino Calabrese on 03-22-2023 Prostate Specific Antigen Screen 1.80 ng/mL 0.00-4.00 [facility] Comment on above: This test was perfor med using the TPSA assay method [facility]. Values obtained with differentassay methods cannot be used interchangably.When changing PSA assays in the course of monitoring apatient, additional sequential testing should be carriedout to confirm baseline values. No Panel InformationOrdered By: Javed Goddard on 03-22-2023 Total Iron Binding Capacity 325 ug/dL 250-450 [facility] Serum or plasma cholesterol in HDL measurement (mass/volume)Ordered By: Chino Calabrese on 03-22-2023 Cholesterol in HDL [Mass/Vol] 53 mg/dL >40 [facility] Comment on above: The drugs N-Acetylcy steine and Metamizole may falsely depress this assay. Reference Range HDL <40 mg/dL Low HDL Cholesterol HDL >or= 60 mg/dL High HDL Cholesterol Serum or plasma cholesterol in VLDL measurement (mass/volume)Ordered By: Chino Calabrese on 03-22-2023 Cholesterol in VLDL [Mass/Vol] 35 mg/dL 5-40 [facility] Serum or plasma ferritin miguel surement (mass/volume)Ordered By: Javed Goddard on 03-22-2023 Ferritin [Mass/Vol] 237 ng/mL 26-388 [facility] Serum or plasma folate measu rement (mass/volume)Ordered By: Javed Goddard on 03-22-2023 Folate [Mass/Vol] 8.20 ng/mL 3.1-55.4 [facility] Serum or plasma iron saturat ion measurement (mass fraction)Ordered By: Javed Goddard on 03-22-2023 Iron saturation [Mass fraction] 43.7 % 15.0-55.0 [facility] Serum or plasma low density lipoprotein (LDL) cholesterol measurement (mass/volume)Ordered By: Chino Calabrese on 03-22-2023 Cholesterol in LDL [Mass/Vol] 165 mg/dL 0-130 [facility] Absolute lymphocyte countOrd ered By: Javed Goddard on 08-25-2022 Lymphocytes Auto (Unsp spec) [#/Vol] 1.58 10*3/uL 0.83-4.51 [facility] Basophil percentageOrdered B y: Javed Goddard on 08-25-2022 Basophils/100 WBC (Bld) 1.2 % 0-1 [facility] Bilirubin [Mass/Vol] 0.60 mg/dL 0.20-1.00 [facility] Comment on above: For patients on eltr ombopag therapy, use of Dimension [place] TBIL is not recommended. Chloride [Moles/Vol] 101 mmol/L 98-107 [facility] Cholesterol [Mass/Vol] 219 mg/dL <200 [facility] Comment on above: <200 mg/dL Desirable 200-240 mg/dL Borderline >240 mg/dL High Risk Eosinophils/100 WBC (Bld) 3.5 % 0-5 [facility] Glucose [Mass/Vol] 94 mg/dL 74-106 [facility] Neutrophils (Bld) [#/Vol] 3.7 10*3/uL 2.0-7.7 [facility] Neutrophils/100 WBC (Bld) 61.5 % 47-70 [facility] Potassium [Moles/Vol] 3.9 mmol/L 3.5-5.1 [facility] Protein [Mass/Vol] 7.7 g/dL 6.4-8.2 [facility] Sodium [Moles/Vol] 136 mmol/L 136-145 [facility] Triglyceride [Mass/Vol] 142 mg/dL <199 [facility] Comment on above: The drugs N-Acetylcy steine and Metamizole may falsely depress this assay.Serum Triglycerides Reference Interval Normal <150 mg/dL Borderline high 150 - 199 mg/dL High 200 - 499 mg/dL Very High > or = 500 mg/dL WBC (Bld) [#/Vol] 6.0 10*3/uL 4.4-11.0 [facility] Blood erythrocytes count (nu mber/volume)Ordered By: Javed Goddard on 08-25-2022 RBC (Bld) [#/Vol] 6.09 10*6/uL 4.6-6.2 [facility] [facility] Blood hemoglobin measurement (mass/volume)Ordered By: Javed Goddard on 08-25-2022 Hemoglobin (Bld) [Mass/Vol] 13.3 g/dL 13.0-16.5 [facility] Blood lymphocytes/100 leukoc ytesOrdered By: Javed Goddard on 08-25-2022 Lymphocytes/100 WBC (Bld) 26.2 % 19-41 [facility] Blood monocytes/100 leukocyt esOrdered By: Javed Goddard on 08-25-2022 Monocytes/100 WBC (Bld) 7.3 % 0-10 [facility] Blood platelet mean volumeOr dered By: Javed Goddard on 08-25-2022 Platelet mean volume (Bld) [Entitic vol] 11.2 fL 6.2-12.0 [facility] Determination of erythrocyte mean corpuscular volume (MCV)Ordered By: Javed Goddard on 08-25-2022 MCV (RBC) [Entitic vol] 69.0 fL 80-94 [facility] Hematocrit Auto (Bld) [Volum e fraction]Ordered By: Javed Goddard on 08-25-2022 Hematocrit (Bld) [Volume fraction] 42.0 % 40-54 [facility] Laboratory - Chemistry and C hemistry - challengeOrdered By: Javed Goddard on 08-25-2022 ALP [Catalytic activity/Vol] 64 U/L 45-117 [facility] ALT [Catalytic activity/Vol] 30 U/L 16-61 [facility] CO2 [Moles/Vol] 29.0 mmol/L 21.0-32.0 [facility] Globulin (S) [Mass/Vol] 4.0 g/dL 2.2-4.2 [facility] Urea nitrogen/Creatinine [Mass ratio] 14.0 mg/mg 10-20 [facility] Laboratory - Hematology and Cell countsOrdered By: Javed Goddard on 08-25-2022 Erythrocyte distribution width (RBC) [Entitic vol] 38.2 fL 35.1-43.9 [facility] Erythrocyte distribution width (RBC) [Ratio] 16.3 % 11.6-14.6 [facility] Immature granulocytes/100 WBC (Bld) 0.300 % 0.0-0.9 [facility] Comment on above: IG% - Immature Granu locytes (promyelocytes, myelocytes and metamyelocytes) > 1% indicates that a LEFT SHIFT is Present. MCH (RBC) [Entitic mass] 21.8 pg 27.0-32.0 [facility] Nucleated RBC/100 WBC (Bld) [Ratio] 0 % 0-5 [facility] MCHC Auto (RBC) [Mass/Vol]Or dered By: Javed Goddard on 08-25-2022 MCHC (RBC) [Mass/Vol] 31.7 g/dL 32-36 [facility] No Panel InformationOrdered By: Javed Goddard on 08-25-2022 Estimated GFR (MDRD) Amer 99 mL/min >60 [facility] Comment on above: GFR Calc Estimated GFR (MDRD) Non-Af Amer 82 mL/min >60 [facility] Comment on above: Non- GFR Calc Thyroid Stimulating Hormone (TSH) 1.66 uIU/mL 0.358-3.74 [facility] Platelets bldOrdered By: Niecy Goddard on 08-25-2022 Platelets (Bld) [#/Vol] 308 10*3/uL 150-450 [facility] Serum or plasma albumin caity urement (mass/volume)Ordered By: Javed Goddard on 08-25-2022 Albumin [Mass/Vol] 3.7 g/dL 3.2-5.0 [facility] Serum or plasma albumin/glob ulin mass ratioOrdered By: Javed Goddard on 08-25-2022 Albumin/Globulin [Mass ratio] 0.9 {ratio} 0.9-2.4 [facility] Serum or plasma calcium caity urement (mass/volume)Ordered By: Javed Goddard on 08-25-2022 Calcium [Mass/Vol] 9.0 mg/dL 8.5-10.1 [facility] Serum or plasma cholesterol in HDL measurement (mass/volume)Ordered By: Javed Goddard on 08-25-2022 Cholesterol in HDL [Mass/Vol] 37 mg/dL >40 [facility] Comment on above: The drugs N-Acetylcy steine and Metamizole may falsely depress this assay. Reference Range HDL <40 mg/dL Low HDL Cholesterol HDL >or= 60 mg/dL High HDL Cholesterol Serum or plasma cholesterol in VLDL measurement (mass/volume)Ordered By: Javed Goddard on 08-25-2022 Cholesterol in VLDL [Mass/Vol] 28 mg/dL 5-40 [facility] Serum or plasma creatinine m easurement (mass/volume)Ordered By: Javed Goddard on 08-25-2022 Creatinine [Mass/Vol] 1.00 mg/dL 0.70-1.30 [facility] Comment on above: The validity of the calculated GFR & GFRAA in patients over 70 years has not been determined. Clinical correlation is essential. Serum or plasma low density lipoprotein (LDL) cholesterol measurement (mass/volume)Ordered By: Javed Goddard on 08-25-2022 Cholesterol in LDL [Mass/Vol] 154 mg/dL 0-130 [facility] Serum or plasma urea nitroge n measurement (mass/volume)Ordered By: Javed Goddard on 02-08-2023 Urea nitrogen [Mass/Vol] 14 mg/dL 7-18 [facility] Thin prep Papanicolaou smear with manual screeningOrdered By: Javed Goddard on 08-25-2022 Thin prep Papanicolaou smear with manual screening 19 U/L 15-37 [facility] Thin prep Papanicolaou smear with manual screening 6 5-15 [facility] Absolute lymphocyte counton 12-01-2021 Lymphocytes Auto (Unsp spec) [#/Vol] 2.05 10*3/uL 0.83-4.51 [facility] Work Phone: Basophil percentageon 2021 Basophils/100 WBC (Bld) 0.9 % 0-1 [facility] Work Phone: Bilirubin [Mass/Vol] 0.20 mg/dL 0.20-1.00 [facility] Work Phone: Comment on above: For patients on eltr ombopag therapy, use of Dimension [place] TBIL is not recommended. Chloride [Moles/Vol] 107 mmol/L 98-107 [facility] Work Phone: Cholesterol [Mass/Vol] 213 mg/dL <200 [facility] Work Phone: Comment on above: <200 mg/dL Desirable 200-240 mg/dL Borderline >240 mg/dL High Risk Eosinophils/100 WBC (Bld) 4.4 % 0-5 [facility] Work Phone: Glucose [Mass/Vol] 98 mg/dL 74-106 [facility] Work Phone: Neutrophils (Bld) [#/Vol] 3.6 10*3/uL 2.0-7.7 [facility] Work Phone: Neutrophils/100 WBC (Bld) 55.8 % 47-70 [facility] Work Phone: Potassium [Moles/Vol] 3.8 mmol/L 3.5-5.1 [facility] Work Phone: Protein [Mass/Vol] 7.2 g/dL 6.4-8.2 [facility] Work Phone: Sodium [Moles/Vol] 139 mmol/L 136-145 [facility] Work Phone: Triglyceride [Mass/Vol] 246 mg/dL [facility] Work Phone: Comment on above: The drugs N-Acetylcy steine and Metamizole may falsely depress this assay.Serum Triglycerides Reference Interval Normal <150 mg/dL Borderline high 150 - 199 mg/dL High 200 - 499 mg/dL Very High > or = 500 mg/dL WBC (Bld) [#/Vol] 6.4 10*3/uL 4.4-11.0 [facility] Work Phone: Blood erythrocytes count (nu mber/volume)on 12-01-2021 RBC (Bld) [#/Vol] 5.44 10*6/uL 4.6-6.2 [facility] Work Phone: Blood hemoglobin measurement (mass/volume)on 12-01-2021 Hemoglobin (Bld) [Mass/Vol] 11.9 g/dL 13.0-16.5 [facility] Work Phone: Blood lymphocytes/100 leukoc yteson 12-01-2021 Lymphocytes/100 WBC (Bld) 32.0 % 19-41 [facility] Work Phone: Blood monocytes/100 leukocyt eson 12-01-2021 Monocytes/100 WBC (Bld) 6.7 % 0-10 [facility] Work Phone: Blood platelet mean volumeon 12-01-2021 Platelet mean volume (Bld) [Entitic vol] 10.4 fL 6.2-12.0 [facility] Work Phone: Determination of erythrocyte mean corpuscular volume (MCV)on 12-01-2021 MCV (RBC) [Entitic vol] 67.5 fL 80-94 [facility] Work Phone: Hematocrit Auto (Bld) [Volum e fraction]on 12-01-2021 Hematocrit (Bld) [Volume fraction] 36.7 % 40-54 [facility] Work Phone: Laboratory - Chemistry and C hemistry - challengeon 12-01-2021 ALP [Catalytic activity/Vol] 71 U/L 45-117 [facility] Work Phone: [phone] ALT [Catalytic activity/Vol] 25 U/L 16-61 [facility] Work Phone: [phone] CO2 [Moles/Vol] 25.0 mmol/L 21.0-32.0 [facility] Work Phone: [phone] Globulin (S) [Mass/Vol] 3.6 g/dL 2.2-4.2 [facility] Work Phone: [phone] Urea nitrogen/Creatinine [Mass ratio] 23.1 mg/mg 10-20 [facility] Work Phone: [phone] Laboratory - Hematology and Cell countson 12-01-2021 Erythrocyte distribution width (RBC) [Entitic vol] 39.5 fL 35.1-43.9 [facility] Work Phone: [phone] Erythrocyte distribution width (RBC) [Ratio] 16.8 % 11.6-14.6 [facility] Work Phone: [phone] Immature granulocytes/100 WBC (Bld) 0.200 % 0.0-0.9 [facility] Work Phone: Comment on above: IG% - Immature Granu locytes (promyelocytes, myelocytes and metamyelocytes) > 1% indicates that a LEFT SHIFT is Present. MCH (RBC) [Entitic mass] 21.9 pg 27.0-32.0 [facility] Work Phone: [phone] Nucleated RBC/100 WBC (Bld) [Ratio] 0 % 0-5 [facility] Work Phone: [phone] MCHC Auto (RBC) [Mass/Vol]on 12-01-2021 MCHC (RBC) [Mass/Vol] 32.4 g/dL 32-36 [facility] Work [facility]: No Panel Informationon 12-01 Estimated GFR (MDRD) Amer 110 mL/min >60 [facility] Work Phone: Comment on above: GFR Calc Estimated GFR (MDRD) Non-Af Amer 91 mL/min >60 [facility] Work Phone: Comment on above: Non- GFR Calc Prostate Specific Antigen Screen 0.68 ng/mL 0.00-4.00 [facility] Work Phone: Comment on above: This test was perfor med using the TPSA assay method for [employer] chemistry system. Values obtained with differentassay methods cannot be used interchangably.When changing PSA assays in the course of monitoring apatient, additional sequential testing should be carriedout to confirm baseline values. Thyroid Stimulating Hormone (TSH) 1.74 uIU/mL 0.358-3.74 [facility] Work Phone: Platelets bldon 12-01-2021 Platelets (Bld) [#/Vol] 253 10*3/uL 150-450 [facility] Work Phone: Serum or plasma albumin caity urement (mass/volume)on 12-01-2021 Albumin [Mass/Vol] 3.6 g/dL 3.2-5.0 [facility] Work Phone: Serum or plasma albumin/glob ulin mass ratioon 12-01-2021 Albumin/Globulin [Mass ratio] 1.0 {ratio} 0.9-2.4 [facility] Work Phone: Serum or plasma calcium caity urement (mass/volume)on 12-01-2021 Calcium [Mass/Vol] 8.9 mg/dL 8.5-10.1 [facility] Work Phone: Serum or plasma cholesterol in HDL measurement (mass/volume)on 12-01-2021 Cholesterol in HDL [Mass/Vol] 32 mg/dL [facility] Work Phone: Comment on above: The drugs N-Acetylcy steine and Metamizole may falsely depress this assay. Reference Range HDL <40 mg/dL Low HDL Cholesterol HDL >or= 60 mg/dL High HDL Cholesterol Serum or plasma cholesterol in VLDL measurement (mass/volume)on 12-01-2021 Cholesterol in VLDL [Mass/Vol] 49 mg/dL 5-40 [facility] Work Phone: Serum or plasma creatinine m easurement (mass/volume)on 12-01-2021 Creatinine [Mass/Vol] 0.91 mg/dL 0.70-1.30 [facility] Work Phone: Comment on above: The validity of the calculated GFR & GFRAA in patients over 70 years has not been determined. Clinical correlation is essential. Serum or plasma low density lipoprotein (LDL) cholesterol measurement (mass/volume)on 12-01-2021 Cholesterol in LDL [Mass/Vol] 132 mg/dL 0-130 [facility] Work Phone: Serum or plasma urea nitroge n measurement (mass/volume)on 12-01-2021 Urea nitrogen [Mass/Vol] 21 mg/dL 7-18 [facility] Work Phone: Thin prep Papanicolaou smear with manual screeningon 12-01-2021 Thin prep Papanicolaou smear with manual screening 15 U/L 15-37 [facility] Work Phone: Thin prep Papanicolaou smear with manual screening 7 5-15 [facility] Work Phone: [facility] 03-16-2019 GI Patient: DENNIS ANAYA SPECIMEN: [id number] Collection Date: 03/16/19 Received: 03/22/19 Status: GISELL Lin DrAlesha: Roney Lopez MD Ph# Othr. Dr.: David Calabrese DO Material for Examination: A SIGMOID POLYPS X3 PRE-OP DIAGNOSIS: SCREENING POST-OP DIAGNOSIS: NONE GIVEN SURGICAL PROCEDURE: NONE GIVEN SPECIMEN COMMENTS: RECEIVED FROM [facility], [address] [place] [address] [address] Katar[address]yna SLIDES LABELED [id number] DENNIS ANAYA L1,L2 DIAGNOSIS A. Sigmoid polyps X3, polypectomy: Hyperplastic polyps, three GROSS DESCRIPTION The specimen is grossed and processed at [facility] The following is the provided gross description: Received in formalin, labeled sigmoid polyps x3, are 3 irregular, soft, pink-roman fragments of tissue ranging in size from 0.1-0.4 cm. The specimen is entirely submitted in one cassette. MICROSCOPIC DESCRIPTION Two Katarzyna stained slides examined. COPIES TO: David Calabrese Nabil M MD Signed Verified/Reviewed by JOYCE HOLLAND MD 03/26/19 This dictation was created using voice recognition software. Phonetic and/or minor grammatical errors may exist. [facility] NAME: DENNIS ANAYA Pathology and Laboratory Medicine UNIT#: [id number] LOC: [facility] Client Integration Manager: Kari Hernandez M.D. ROOM/BED: [employer] ([facility]) [facility] : 63 AGE/SEX: 53/M ORD.Roney Franco MD END OF REPORT Normal [facility] Emergency Room Note on 03-11-2018 [facility] Note Normal [facility] ([place]) Vital Signs Date Time Vital Sign Value Performing Clinician Kenyatta haynes 10-14-2023 09:28-0400 Body height 162.[address] Chino Calabrese Work Phone: [facility] 10-14-2023 09:28-0400 Body mass index (BMI) [Ratio] 31.9 kg/m2 Dr. Chino Calabrese Work Phone: [facility] 10-14-2023 09:28-0400 Body temperature 97.8 [degF] Dr. Chino Calabrese Work Phone: [facility] 10-14-2023 09:28-0400 Body weight 84.[address] Chino Calabrese Work Phone: [facility] 10-14-2023 09:28-0400 Diastolic blood pressure 88 mm[Hg] Dr. Chion Calabrese Work Phone: [facility] 10-14-2023 09:28-0400 Heart rate 87 /min Dr. Chino Calabrese Work Phone: [facility] 10-14-2023 09:28-0400 Respiratory rate 16 /min Dr. Chino Calabrese Work Phone: [facility] 10-14-2023 09:28-0400 SaO2% (BldA) [Mass fraction] 98 % Dr. Chino Calabrese Work Phone: [facility] 10-14-2023 09:28-0400 Systolic blood pressure 128 mm[Hg] Dr. Chino Calabrese Work Phone: [facility] 03-24-2023 13:27-0400 Body height 162.[address] Chino Calabrese Work Phone: [facility] 03-24-2023 13:27-0400 Body mass index (BMI) [Ratio] 30.4 kg/m2 Dr. Chino Calarbese Work Phone: [facility] 03-24-2023 13:27-0400 Body temperature 97.2 [degF] Dr. Chino Calabrese Work Phone: [facility] 03-24-2023 13:27-0400 Body weight 80.[address] Chino Calabrese Work Phone: [facility] 03-24-2023 13:27-0400 Diastolic blood pressure 102 mm[Hg] Dr. Chino Calabrese Work Phone: [facility] 03-24-2023 13:27-0400 Heart rate 87 /min Dr. Chino Calabrese Work Phone: [facility] 03-24-2023 13:27-0400 Respiratory rate 16 /min Dr. Chino Calabrese Work Phone: [facility] 03-24-2023 13:27-0400 SaO2% (BldA) [Mass fraction] 99 % Dr. Chino Calabrese Work Phone: [facility] 03-24-2023 13:27-0400 Systolic blood pressure 141 mm[Hg] Dr. Chino Calabrese Work Phone: [facility] 03-16-2023 15:55-0400 Body mass index (BMI) [Ratio] 32.2 kg/m2 Dr. Chino Calabrese Work Phone: [facility] 03-16-2023 15:55-0400 Body temperature 97.9 [degF] Dr. Chino Calabrese Work Phone: [facility] 03-16-2023 15:55-0400 Body weight 85.[address] Chino Calabrese Work Phone: [facility] 03-16-2023 15:55-0400 Diastolic blood pressure 92 mm[Hg] Dr. Chino Calabrese Work Phone: [facility] 03-16-2023 15:55-0400 Heart rate 100 /min Dr. Chino Calabrese Work Phone: [facility] 03-16-2023 15:55-0400 Respiratory rate 16 /min Dr. Chino Calabrese Work Phone: [facility] 03-16-2023 15:55-0400 SaO2% (BldA) [Mass fraction] 98 % Dr. Chino Calabrese Work Phone: [facility] 03-16-2023 15:55-0400 Systolic blood pressure 160 mm[Hg] Dr. Chino Calabrese Work Phone: [facility] 12-02-2022 10:17-0400 Body temperature 97.7 [degF] Dr. Chino Calabrese Work Phone: [facility] 12-02-2022 10:17-0400 Diastolic blood pressure 84 mm[Hg] Dr. Chino Calabrese Work Phone: [facility] 12-02-2022 10:17-0400 Heart rate 68 /min Dr. Chino Calabrese Work Phone: [facility] 12-02-2022 10:17-0400 Respiratory rate 16 /min Dr. Chino Calabrese Work Phone: [facility] 12-02-2022 10:17-0400 SaO2% (BldA) [Mass fraction] 97 % Dr. Chino Calabrese Work Phone: [facility] 12-02-2022 10:17-0400 Systolic blood pressure 144 mm[Hg] Dr. Chino Calabrese Work Phone: [facility] 08-25-2022 10:47-0500 Body temperature 97.5 [degF] Dr. Chino Calabrese Work Phone: [facility] 08-25-2022 10:47-0500 Diastolic blood pressure 90 mm[Hg] Dr. Chino Calabrese Work Phone: [facility] 08-25-2022 10:47-0500 Heart rate 85 /min Dr. Chino Calabrese Work Phone: [facility] 08-25-2022 10:47-0500 Respiratory rate 16 /min Dr. Chino Calabrese Work Phone: [facility] 08-25-2022 10:47-0500 SaO2% (BldA) [Mass fraction] 97 % Dr. Chino Calabrese Work Phone: [facility] 08-25-2022 10:47-0500 Systolic blood pressure 130 mm[Hg] Dr. Chino Calabrese Work Phone: [facility] 08-11-2022 15:59-0500 Body height 162.[address] Chino Calabrese Work Phone: [facility] 08-11-2022 15:59-0500 Body mass index (BMI) [Ratio] 32.4 kg/m2 Dr. Chino Calabrese Work Phone: [facility] 08-11-2022 15:59-0500 Body temperature 98.7 [degF] Dr. Chino Calabrese Work Phone: [facility] 08-11-2022 15:59-0500 Body weight 85.[address] Chino Calabrese Work Phone: [facility] 08-11-2022 15:59-0500 Diastolic blood pressure 98 mm[Hg] Dr. Chino Calabrese Work Phone: [facility] 08-11-2022 15:59-0500 Heart rate 87 /min Dr. Chino Calabrese Work Phone: [facility] 08-11-2022 15:59-0500 Respiratory rate 16 /min Dr. Chino Calabrese Work Phone: [facility] 08-11-2022 15:59-0500 SaO2% (BldA) [Mass fraction] 97 % Dr. Chino Calabrese Work Phone: [facility] 08-11-2022 15:59-0500 Systolic blood pressure 142 mm[Hg] Dr. Chino Calabrese Work Phone: [facility] 12-01-2021 16:56-0400 Diastolic blood pressure 82 mm[Hg] Dr. Chino Calabrese Work Phone: [facility] Work Phone: 12-01-2021 16:56-0400 Heart rate 78 /min Dr. Chino Calabrese Work Phone: [facility] Work Phone: 12-01-2021 16:56-0400 Respiratory rate 18 /min Dr. Chino Calabrese Work Phone: [facility] Work Phone: 12-01-2021 16:56-0400 Systolic blood pressure 142 mm[Hg] Dr. Chino Calabrese Work Phone: [facility] Work Phone: Encounters Encounter Date Encounter Type Care Provider Facility Start: 05-02-2024 End: 05-02-2024 ambulatory Chino Calabrese Facility:[facility] Start: 10-14-2023 End: 10-14-[address] Chino Calabrese Work Phone: [facility] Work Phone: Start: 10-14-2023 End: 10-14-[address] Chino Calabrese Work Phone: [facility] Start: 10-14-2023 End: 10-14-[address] Chino Calabrese Work Phone: [facility] Work Phone: Start: 10-14-2023 End: 10-14-2023 ambulatory Jorge IVAN Facility:[facility] Start: 10-14-2023 End: 10-14-2023 ambulatory Chino Calabrese Facility:[facility] Start: 03-24-2023 End: 03-24-2023 Emergency department patient visit Dr. Chino Calabrese Work Phone: [facility] Work Phone: Start: 03-22-[address] Chino Calabrese Work Phone: [facility] Start: 03-16-2023 End: 03-16-[address] Chino Calabrese Work Phone: [facility] Work Phone: Start: 12-02-2022 End: 12-02-[address] Chino Calabrese Work Phone: [facility] Work Phone: Start: 08-25-2022 End: 08-25-[address] Chino Calabrese Work Phone: [facility] Work Phone: Start: 08-25-2022 End: 08-25-[address] Chino Calabrese Work Phone: [facility] Start: 08-11-[address] Benedict Calabrese Work Phone: [facility] Start: 08-11-2022 End: 08-11-2022 Encounter for general adult medical examination without abnormal findings Dr. Chino Calabrese Work Phone: [facility] Start: 08-11-2022 End: 08-11-[address] Chino Calabrese Work Phone: [facility] Start: 12-01-2021 End: 12-01-[address] Chino Calabrese Work Phone: [facility] Start: 09-18-2021 End: 09-18-2021 Patient encounter procedure [facility] Start: 07-13-2021 End: 07-13-2021 Discharged Recurring [facility] Start: 07-08-2021 Patient encounter procedure [facility] Start: 03-11-2018 End: 03-11-2018 Emergency department patient visit [facility] DRAPER Facility:[facility] Procedures Date Procedure Procedure Detail Performing Clinician Start: 10-14-2023 Coronavirus COVID-[address] Chino Calabrese Work Phone: Start: 10-14-[address] acid assay Dr[address] Chino Calabrese Work Phone: Start: 12-02-2022 Plain x-ray of pelvi s and lower extremity Dr. Chino Calabrese Work Phone: Start: 12-02-2022 X-ray of lumbar spin e, two or three views Dr[address] Chino Calabrese Work Phone: Plan of Treatment Date Care Activity Detail Author Start: 08-11-2022 Patient referral [facility] Work Phone: Patient Education ED Radiculopat hy, Cervical [facility] Work Phone: Patient referral [facility] Work Phone: [facility] Immunizations Immunization Date Immunization Notes Care Provider Fa cility 11-22-2018 tetanus toxoid, redu dami diphtheria toxoid, and acellular pertussis vaccine, adsorbed [facility] 11-22-2018 diphtheria, tetanus toxoids and acellular pertussis vaccine, unspecified formulation [facility] Work Phone: Payers Date Payer Category Payer Self-pay [id number] 2018 Unknown [id number] Unknown [id number] Unknown [id number] Unknown [id number] Social History Date Type Detail Facility Start: 06-02-2021 End: 10-14-2023 Tobacco smoking status NHIS Unknown if ever smoked [facility] Start: 06-16-2019 Cigarettes [facility] Start: 1965 Sex Assigned At Male [facility] Medical Equipment Procedure Code Equipment Code Equipment Origin al Text Equipment Identifier Dates Primary uncemented total hip replacement ACCOLADE II [id number] ANGLE STEM FDA Start: 04-19-2018 Primary uncemented total hip replacement BIOLOX DELTA CERAMIC FEM HEAD FDA Start: 04-19-2018 Primary uncemented total hip replacement TRIDENT II TRITAN CLHOLE SHELL FDA Start: 04-19-2018 Primary uncemented total hip replacement TRIDENT X3 0 DEG POLY INSERT FDA Start: 04-19-2018 Primary uncemented total hip replacement BIOLOX DELTA FEM HEAD CERAMIC FDA Start: 07-05-2018 Primary uncemented total hip replacement Trident Tritanium Acetab. Daisy FDA Start: 07-05-2018 Primary uncemented total hip replacement Trident x3 0 Poly Insert FDA Start: 07-05-2018 Primary uncemented total hip replacement accol. 127 neck angle hip stem FDA Start: 07-05-2018 Primary uncemented total hip replacement ACCOLADE II 127D ANGLE STEM FDA Start: 04-19-2018 Primary uncemented total hip replacement BIOLOX DELTA CERAMIC FEM HEAD FDA Start: 04-19-2018 Primary uncemented total hip replacement TRIDENT II TRITAN CLHOLE SHELL FDA Start: 04-19-2018 Primary uncemented total hip replacement TRIDENT X3 0 DEG POLY INSERT FDA Start: 04-19-2018 Primary uncemented total hip replacement BIOLOX DELTA FEM HEAD CERAMIC FDA Start: 07-05-2018 Primary uncemented total hip replacement Trident Tritanium Acetab. Daisy FDA Start: 07-05-2018 Primary uncemented total hip replacement Trident x3 0 Poly Insert FDA Start: 07-05-2018 Primary uncemented total hip replacement accol. 127 neck angle hip stem FDA Start: 07-05-2018 Primary uncemented total hip replacement ACCOLADE II 127D ANGLE STEM FDA Start: 04-19-2018 Primary uncemented total hip replacement BIOLOX DELTA CERAMIC FEM HEAD FDA Start: 04-19-2018 Primary uncemented total hip replacement TRIDENT II TRITAN CLHOLE SHELL FDA Start: 04-19-2018 Primary uncemented total hip replacement TRIDENT X3 0 DEG POLY INSERT FDA Start: 04-19-2018 Primary uncemented total hip replacement BIOLOX DELTA FEM HEAD CERAMIC FDA Start: 07-05-2018 Primary uncemented total hip replacement Trident Tritanium Acetab. Daisy FDA Start: 07-05-2018 Primary uncemented total hip replacement Trident x3 0 Poly Insert FDA Start: 07-05-2018 Primary uncemented total hip replacement accol. 127 neck angle hip stem FDA Start: 07-05-2018 Primary uncemented total hip replacement ACCOLADE II 127D ANGLE STEM FDA Start: 04-19-2018 Primary uncemented total hip replacement BIOLOX DELTA CERAMIC FEM HEAD FDA Start: 04-19-2018 Primary uncemented total hip replacement TRIDENT II TRITAN CLHOLE SHELL FDA Start: 04-19-2018 Primary uncemented total hip replacement TRIDENT X3 0 DEG POLY INSERT FDA Start: 04-19-2018 Primary uncemented total hip replacement BIOLOX DELTA FEM HEAD CERAMIC FDA Start: 07-05-2018 Primary uncemented total hip replacement Trident Tritanium Acetab. Daisy FDA Start: 07-05-2018 Primary uncemented total hip replacement Trident x3 0 Poly Insert FDA Start: 07-05-2018 Primary uncemented total hip replacement accol. 127 neck angle hip stem FDA Start: 07-05-2018 Primary uncemented total hip replacement ACCOLADE II 127D ANGLE STEM FDA Start: 04-19-2018 Primary uncemented total hip replacement BIOLOX DELTA CERAMIC FEM HEAD FDA Start: 04-19-2018 Primary uncemented total hip replacement TRIDENT II TRITAN CLHOLE SHELL FDA Start: 04-19-2018 Primary uncemented total hip replacement TRIDENT X3 0 DEG POLY INSERT FDA Start: 04-19-2018 Primary uncemented total hip replacement BIOLOX DELTA FEM HEAD CERAMIC FDA Start: 07-05-2018 Primary uncemented total hip replacement Trident Tritanium Acetab. Daisy FDA Start: 07-05-2018 Primary uncemented total hip replacement Trident x3 0 Poly Insert FDA Start: 07-05-2018 Primary uncemented total hip replacement accol. 127 neck angle hip stem FDA Start: 07-05-2018 Discharge summary 03-24-2023 Note Date & Type Note Facility 03-24-2023 Discharge summary Note Date/Time March 24, 2023 3:16pm [facility] Medical Records Department [address] [place] [address] Emergency Department Summary 03/24/23 MR#: [id number] Acct: [id number] Name: DENNIS ANAYA Rep #:[id number] : 1965 57 From: Bobo Glass MD PCP: Dr. Chino Calabrese, DO Status:SD E ER Location: ED HPI History of Present Illness Chief Complaint: Back Informant: patient Narrative Narrative: Patient presents with right-sided back pain. Patient states he has had problems with his back and neck. About 5 or 6 years ago he had a fusion and plate placed in his neck. He has also had lumbar surgery. That is done pretty well. But he has pain below that now in his mid back. Its only on the right. If he looks up it worsens the pain. Reaching hisright arm forward bothers a little bit. There is no pain with breathing. He isnot short of breath. No trauma. No nausea vomiting. No fevers. No recent infections. He does have a little bit of tingling of his right small finger andring finger that seems to be new. But no weakness. Nothing has been tried. Hestates it is hard to reach that area because he lives alone and he cannot rub the area or put anything on it. [facility] Medical History Alcohol abuse, in remission Anxiety Chronic low back pain Encounter for preventative adult health care examination High blood pressure High cholesterol HTN (hypertension) Hypersomnia Lumbar radiculopathy, acute Lumbar strain SANTOS (obstructive sleep apnea) Skin lesion of left lower extremity Strain of left hip Strain of right hip Home Medications cyclobenzaprine 10 mg tablet 10 mg PO TID PRN muscle spasm #20 tabs 12/02/22 [Rx Last Taken Unknown] prednisone 10 mg tablet 10 mg PO DIRECTED #30 tabs 12/02/22 [Rx Last Taken Unknown] famciclovir 250 mg tablet 250 mg PO Q12H #60 tabs 03/16/23 [Rx Last Taken Unknown] losartan 50 mg-hydrochlorothiazide 12.5 mg tablet 1 tab PO DAILY #90 tabs 03/16/23 [Rx Last Taken Unknown] rosuvastatin 20 mg tablet 20 mg PO DAILY #90 tabs 03/16/23 [Rx Last Taken Unknown] sildenafil 100 mg tablet (Viagra) 100 mg PO DAILY PRN sexual activity #7 tabs 03/16/23 [Rx Last Taken Unknown] cyclobenzaprine 10 mg tablet 10 mg PO TID PRN Muscle Spasm #20 TABLETS 03/24/23 [Rx Last Taken Unknown] prednisone 20 mg tablet 60 mg (3 x 20 mg) PO DAILY #15 TABLETS 03/24/23 [Rx Last Taken Unknown] Allergy/AdvReac Type Severity Reaction Status Date / Time No Known Allergies Allergy Verified 03/16/23 15:55 Family History Mother Cancer Sister Diabetes Brother Diabetes Surgical History History of cervical spinal surgery History of hernia repair History of lumbar surgery History of total left hip replacement History of total right hip replacement Social History Smoking Status: Former smoker alcohol intake: never substance use type: does not use what type of physical activity do you participate in: none ROS ROS ED ROS Narrative A complete review of systems was performed and is negative except as documented in the history of present illness. Some specific details below. Constitutional: No recent fevers or chills. No rigors. Patient has not generallyfelt ill. No recent infections EYE: No visual complaints, or pain. ENT: No sinus pressure or pain. No nasal discharge. CV: No chest pain, pressure or aching. No palpitations or irregular beats. Patient has not been presyncopal or syncopal. Respiratory: No trouble breathing. No cough. No wheezing. No sputum production. No pain with breathing. No recent travel surgery immobilization personal or family history of DVT or PE. GI: No abdominal pain. No nausea vomiting diarrhea. No blood in stool. No loss of bowel control. No history of AAA. : No frequency dysuria or hematuria. No incontinence or urinary retention. Musculoskeletal: No recent trauma. No swelling. Please see history of present illness. Skin: No rash. No diaphoresis. No vesicles. Neuro: No weakness but he does have the right small and ring finger paresthesiasas in history of present illness. No pain radiating down leg past the knee. No weakness of ambulation or with grabbing and using his extremities. He has been going to work with this.. No sensory changes in the extremities. Please see history of present illness also. Endocrine: No polyuria or polydipsia. EXAM Physical Exam Narrative Exam Narrative: Patient awake alert no acute distress sitting comfortably on bed very nontoxic and carries on normal conversation. HEENT shows no trauma. Neck shows well-healed anterior scar. His range of motion of the neck is good. When I have him look all the way up he does feel the area sore on his right mid back. Lungs are clear bilaterally. He can take good deep breaths with no pain or discomfort. Does not produce any coughing or cessation of inspiration. His saturation is normal at 99% on room air showing no hypoxia. Heart is regular. No murmur. No muffled tones. Pulses are normal upper and lower extremities and equal. Abdomen is benign. He has normal bowel sounds. Soft nontender. Back shows right-sided paraspinal tenderness at the upper mid back medial to thescapula. This reproduces his symptoms. No midline or percussion tenderness. No skin changes rash or swelling. Extremities show normal muscle development. No wasting. Pulses sensation is normal. 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 He has a sense of paresthesias of the right small and ring finger. I do not reproduce this with tapping on theulnar nerve at the medial elbow. 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 Const Vital Signs: 03/24/23 13:27 Temperature 97.2 F L Temperature Source Temporal Pulse Rate 87 Respiratory Rate 16 Blood Pressure 141/102 H Blood Pressure Mean 115 Pulse Ox 99 Oxygen Delivery Method Room Air MDM MDM MDM Narrative Medical decision making narrative: I have talked with the patient. I do not think this represents heart disease atall. He states he feels great other than the sore area and the tingling of the finger. Not short of breath diaphoretic nausea vomiting or weak. I do not think this is a pulmonary embolus. I do not think imaging is blood work or EKG is going to add to this. He has had this before. He has done well with muscle relaxants and steroids. He is not diabetic. We will initiate this therapy. Wediscussed reasons to return expected course and follow-up. Discharge Plan Triage Chief Complaint: Back ED Provider: Bobo Glass Dx/Rx/DC Orders Clinical Impression: Cervical radiculopathy at C8, Acute right-sided back pain Instructions: ED Radiculopathy, Cervical Prescriptions: New cyclobenzaprine [cyclobenzaprine] 10 mg tablet 10 mg PO TID PRN (Reason: Muscle Spasm) Qty: 20 0RF prednisone 20 mg tablet 60 mg PO DAILY Qty: 15 0RF No Action prednisone 10 mg tablet 10 mg PO DIRECTED Qty: 30 0RF Rx Instructions: 4 tablets daily x3 days, then 3 tablets daily x3 days, then 2 tablets daily x3 days, then 1 tablet daily x3 days cyclobenzaprine 10 mg tablet 10 mg PO TID PRN (Reason: muscle spasm) Qty: 20 0RF losartan-hydrochlorothiazide 50-12.5 mg tablet 1 tab PO DAILY Qty: 90 3RF famciclovir 250 mg tablet 250 mg PO Q12H Qty: 60 2RF rosuvastatin 20 mg tablet 20 mg PO DAILY Qty: 90 3RF sildenafil [Viagra] 100 mg tablet 100 mg PO DAILY PRN (Reason: sexual activity) Qty: 7 3RF Rx Instructions: administer 30 minutes to 4 hours before activity Primary Care Provider: Chino Calabrese Referrals: Chino Calabrese, [Primary Care Provider] - 3-5 Days Disposition Disposition: Home, Self Care What to do if you have Problems For any increased pain, shortness of breath, bleeding, nausea or vomiting, chestpain, or any unexpected problems, contact your Primary Care Provider. Call [facility] ([phone]) or report to the closest Emergency Room. Call 911 if necessary. 03/24/23 1517 <Electronically signed by Bobo Glass MD> Cosigner Signature (if applicable): CC: Dr. Chino Calabrese DO ~ Signed [facility] Work Phone: Evaluation note Note Date & Type Note Facility Evaluation note No assessment information availa ble [facility] Work Phone: Evaluation note Note Date & Type Note Facility Evaluation note Diagnosis Onset Date Anxiety acute SANTOS (obstructive sleep apnea) acute HTN (hypertension) [facility] Work Phone: Evaluation note Note Date & Type Note Facility Evaluation note Diagnosis Onset Date Encounter for preventative a dult health care examination acute Skin lesion of left lower extremity acute HTN (hypertension) chronic SANTOS (obstructive sleep apnea) [facility] Work Phone: Evaluation note Note Date & Type Note Facility Evaluation note Diagnosis Onset Date Lumbar radiculopathy, acute acute Lumbar strain acute Strain of left hip acute Strain of right hip acute Urinary frequency acute Hyperlipidemia [facility] Work Phone: Evaluation note Note Date & Type Note Facility Evaluation note Diagnosis Onset Date Alcohol abuse, in remission acute Night sweats acute Sore throat acute HTN (hypertension) chronic [facility] Work Phone: Summary Purpose Family History No Family History Records Found Relationship Condition Age at Onset Recorded Date/T boubacar mother Malignant neoplasm Unknown sister Diabetes mellitus Unknown brother Diabetes mellitus Unknown Advance Directives No Advanced Directives Records Found Advance Directive Response Recorded Date/ Time Living Will No April 28 12:50am Power of Mortgage Servicing Specialist No April 28, 2021 12:50am Advance Directive Response Recorded Date/ Time Living Will No April 27 11:50pm Power of Mortgage Servicing Specialist No April 27, 2021 11:50pm Advance Directive Response Recorded Date/ Time Living Will No March 24 023 3:03pm Power of Mortgage Servicing Specialist No March 24, 2023 3:03pm Chief Complaint and Reason for Visit Chief Complaint HYPERSOMNIA BACK SX. RX HERE SANTOS; AUTO CPAP *INVENTORY TAGGED Chief Complaint SANTOS; AUTO CPAP *INVE NTORY TAGGED 6 M FU Reason for Visit Anxiety SANTOS (obstructive sleep apnea) HTN (hypertension) Chief Complaint PHYSICAL bp chk, bloodwork Reason for Visit Encounter for [facility] adult health care examination Skin lesion of left lower extremity HTN (hypertension) SANTOS (obstructive sleep apnea) Chief Complaint Back pain XRAY 1 yr fu BACK PAIN Reason for Visit Lumbar radiculopathy , acute Lumbar strain Strain of left hip Strain of right hip Urinary frequency Hyperlipidemia Chief Complaint acute - congestion/b tony aches x8days Reason for Visit Alcohol abuse, in [place] Night sweats Sore throat HTN (hypertension) Additional Source Comments (unrecognized sect ion and content) No Status Records FoundNo Status Records FoundNo Status Records Found INFORMATION SOURCE (unrecogn ized section and content) DATE CREATED AUTHOR 03/13/2018 [facility] ([place]) DATE CREATED AUTHOR AUTHOR'S ORGANIZ ATION 03/26/2019 [facility] Francine bob Mckinney DATE CREATED AUTHOR AUTHOR'S ORGANIZ ATION 05/05/2024 [facility] Goals (unrecognized section and content) Goals may be documented in a n alternate sectionGoals may be documented in an alternate sectionGoals may be documented in an alternate sectionGoals may be documented in an alternate sectionGoals may be documented in an alternate section Care Teams (unrecognized sec tion and content) Team Status: Active Member Role Status Dates Dr. Chino Calabrese , DO Family Provider Active Dr. Chino Calabrese , DO Primary Care Provider Active Team Status: Inactive Member Role Status Dates Dr. Chino Calabrese , DO Primary Care Provider, Referr ing Provider Active Javed Goddard FORMING MACHINE UPKEEP MECHANIC HELPER, FORMING MACHINE UPKEEP MECHANIC HELPER-C Attending Provider Active Team Status: Inactive Member Role Status Dates Dr. Chino Calabrese , DO Primary Care Pr ovider, Attending Provider, Referring Provider Active Team Status: Inactive Member Role Status Dates Dr. Chino Calabrese , DO Primary Care Provider Active Javed Goddard FORMING MACHINE UPKEEP MECHANIC HELPER, FORMING MACHINE UPKEEP MECHANIC HELPER-C Attending Provider, Referring Prov ider Active Team Status: Inactive Member Role Status Dates Dr. Chino Calabrese , DO Primary Care Provider, Referr ing Provider Active MARZENA June Attending Provider Active Team Status: Inactive Member Role Status Dates Dr. Chino Calabrese , DO Primary Care Provider Active Dr. Gino Iqbal MD Attending Provider Active Team Status: Active Member Role Status Dates Dr. Chino Calabrese , DO Primary Care Provider, Attend ing Provider Active Team Status: Inactive Member Role Status Dates Dr. Chino Calabrese , DO Primary Care Provider Active Dr. Bobo Glass MD Emergency Provider Active Team Status: Inactive Member Role Status Dates Dr. Chino Calabrese , DO Primary Care Provider, Referr ing Provider Active MARZENA Stuart Attending Provider Active Team Status: Inactive Member Role Status Dates Dr. Chino Calabrese , DO Primary Care Provider Active MARZENA Stuart Attending Provider Active FOR RECORDS PERTAINING TO PATIENTS WHO ARE OR HAVE BEEN ENROLLED IN A CHEMICAL DEPENDENCY/SUBSTANCEABUSE PROGRAM, SOME INFORMATION MAY BE OMITTED. This clinical summary was aggregated from multiple sources. Caution should be exercised in using it in the provision of clinical care. This summary normalizes information from multiple sources, and as a consequence, information in this document may materially change the coding, format and clinical context of patient data. In addition, data may be omitted in some cases. CLINICAL DECISIONS SHOULD BE BASED ON THE PRIMARY CLINICAL RECORDS. [employer] provides no warranty or guarantee of the accuracy or completeness of information in this document.
== END | disposition home or self-care (01) ==
LOC: BIMLAB 14:56
PROVIDERS: PCP Family Medicine; Referring Provider Physician Assistant; Visit Provider Physician Assistant
DX: E78.00 Pure hypercholesterolemia, unspecified (principal); Z83.3 Family history of diabetes mellitus; Z12.5 Encounter for screening for malignant neoplasm of prostate; I10 Essential (primary) hypertension
CPT/HCPCS: 36415; 80053; 80061; 83036; 84153; 84443; 85025; G0103

== ENCOUNTER → 2025-02-05 | Outpatient (CLI) | payer BC, SELFPAY ==
--- NOTE | 2025-02-05 17:44 | CT_ITS ---
PROCEDURE: EXTREMITY LOWER WITHOUT CONTRA 02/05/2025 REASON FOR EXAM: RIGHT HIP PAIN TECHNIQUE: EXTREMITY LOWER WITHOUT CONTRA Coronal and Sagittal reconstruction series were provided. CONTRAST: None One or more dose reduction techniques were used (e.g., Automated exposure control, adjustment of the mA and/or kV according to patient size, use of iterative reconstruction technique). RADIATION DOSE SUMMARY: DLP: 625 mGycm COMPARISON: None FINDINGS: Bones: There is a total hip prosthesis in position with no visible hardware failure or loosening. There is a 2.7 cm corticated osteochondral fragment at the greater trochanter. Partial sacralization of L5 is noted. No acute fracture or dislocation is identified. Soft Tissues: Muscular structures appear intact. Atherosclerotic calcifications are present. There is no adenopathy. CT/Extremity Lower without Contra IMPRESSION: There is a total hip prosthesis in position with no visible hardware failure or loosening. There is a 2.7 cm corticated osteochondral fragment at the greater trochanter. Reading Location: [facility]
== END | disposition home or self-care (01) ==
LOC: CT 17:40
PROVIDERS: PCP Physician Assistant; Referring Provider Specialist; Visit Provider Specialist
DX: T84.84XA Pain due to internal orthopedic prosthetic devices, implants and grafts, initial encounter (principal); Z96.641 Presence of right artificial hip joint; M61.59 Other ossification of muscle, multiple sites
CPT/HCPCS: 73700

== ENCOUNTER 2025-02-18 14:57 | Outpatient (RCR) | payer BC, SELFPAY ==
--- NOTE | 2025-02-18 18:14 | HP.FCE ---
Task Lift Floor (Occasional 1-33% of Day): 30# Floor (Frequent 34-66% of Day): 15# Floor (Constant 67-100% of Day): NA Floor PDL: Light Knee (Occasional 1-33% of Day): 45# Knee (Frequent 34-66% of Day): 22.5# Knee (Constant 67-100% of Day): NA Knee PDL: Light-Medium Waist (Occasional 1-33% of Day): 45# Waist (Frequent 34-66% of Day): 22.5# Waist (Constant 67-100% of Day): NA Waist PDL: Light-Medium Shoulder (Occasional 1-33% of Day): 30# Shoulder (Frequent 34-66% of Day): 15# Shoulder (Constant 67-100% of Day): NA Shoulder PDL: Light Overhead (Occasional 1-33% of Day): 10# Overhead (Frequent 34-66% of Day): NA Overhead (Constant 67-100% of Day): NA Overhead PDL: Sedentary Comments: Due to increase in pts pain level pt can not lift on a constant ability. Work Activity/Posture Bending: Frequent Ability (34-66% of day) Comments: with use of external support Squatting: Frequent Ability (34-66% of day) Comments: with external support Kneeling: Occasional Ability (1-33% of day) Comments: with external support Reaching out: Frequent Ability (34-66% of day) Comments: while sitting Reaching up: Frequent Ability (34-66% of day) Comments: while sitting Sitting: Frequent Ability (34-66% of day) Walking: Occasional Ability (1-33% of day) Standing: Occasional Ability (1-33% of day) Reference Reference: Duration Sedentary Sedentary Light Light Light Medium Medium Medium Heavy Very Heavy Heavy Occasional (0-33% of day) Frequent (34-66% of day) Constant (67-100% of day) 10 # Negligible Negligible 15 # 8 # Negligible 20 # 10# Negli. 35 # 18 # 7 # 50 # 25 # 10 # 75 # 100 # >100 # 38 # 50 # >50 # 15 # 20 # >20 # Patient Information Height: 1.65 m Weight:: 74.843 kg Hand Dominance: right Medical History Medical History Including Restrictions: pt states he has struggled with back and hip pain since [id number]. ( see below for sx dates) pt states due right hip pain pt went to see Dr. Jimenez on January [address] Jimenez put him on a 10# lift restriction and his employer stated they had no work for him with that restriction. pt states told him he could undergo sx again on his right hip but due to the risk pt has decided against the sx. 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 Left THR Feb 2018 Right THR 2017. Back sx 2019 (decompression sx) Neck sx 2017 ( fusion unsure of the level) spinal stenosis Symptoms Symptoms: low back pain right hip/groin pain sleep disturbance irritability High Blood pressure ( BP) Pain Pain: pt states at rest pain is 3-4/10 and with work his pain becomes 7-8/10. pt states pain will go away- pain is more in AM. pt states he will use heat/ice depending on how his right hip feels- pt is on meloxicam. pt states states pain in hip is 4/10 following assessment following a brief rest period. 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 pt states he typically work is 8 hrs- but states he has worked 16 hour shift but his body is hurting. pt states his job duties he is required to walk, lift and climb stairs due to a constant movement driven job tasks. pt states he has been off work since January 25, 2025. Behavioral Behavioral: pt cooperative throughout assessment. ADLS ADLS: pt states he lives in a split level home alone. pt states he has 5 steps with one hand rail. pt states he does have 5-6 steps to bedroom/bathroom. pt states his laundry is in basement and has 10. pt states he does use a tub shower combination pt states he uses a wall for support when he gets in and out of tub shower- pt states dressing does take longer pt drives [place] pt states he does all the lawn care- grocery shopping- and cleaning. pt states he can do daily tasks but they take longer. pt states if he has a bad day he just wont do much. Physical Examination ROM: lumbar spine extension slight limitation bilateral Hip flexors at 80* flexion all other ROM is WNL Strength: Fit 2 peak force muscle testing shoulder flexion right 23# left 21# shoulder extension right 25# left 29# Biceps right 41# left 32# triceps right 29# left 24# Hip flexion right 29# left 35# hamstrings right 21# left 27# quadriceps right 18# left 27# Right Technical Writing Lead/Mgr Strength Average: 60.00 Right Technical Writing Lead/Mgr Strength Percentile: .9% Left Technical Writing Lead/Mgr Strength Average: 58.33 Left Technical Writing Lead/Mgr Strength Percentile: <5% Right Lateral Pinch Average: 10.00 Right Lateral Pinch Percentile: <10% Left Lateral Pinch Average: 12.66 Left Lateral Pinch Percentile: <10% Right Tripod Pinch Average: 10.66 Right Tripod Pinch Percentile: <10% Left Tripod Pinch Average: 9.33 Left Tripod Pinch Percentile: <10% Comments: 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 initial resting heart rate 68 Sensation: Denies Issue Fine Motor: 9-hole peg test right 21.43 = 75% left 25.50=50% for his age comparison for fine motor manipulation Balance: functional reach test 8 no loss of balance noted during assessment. Non Material Handling Activities Bending: pt demo the ability to bend forward 3/3x, 10/10x and 10/10x rapidly pt states right hip pain 4/10 pt use of external support pt heart rate 97 pt can bend forward on frquent ability with use of external support Squatting: pt demo the ability to squat 3/3x, 10/10x and 10/10x with external support pt reports a feeling of hip restrictions that prevents him from squatting lower heart rate increased from 64 to 93 pt states feeling of leg fatigue p0t can squat on frequent ability with external support Kneeling: pt demo the ability to kneel 3/10 - pt use of external support pt states low back pain increased 0 to 7/10 heart rate 95 pt can kneel on low occasional ability with external support Reaching out/up: pt demo the ability to reach up/out 3/3x, 10/10 and 10/10x rapidly. pt completed sitting heart rate 87 back pain went away after sitting pt can reach out/up on frequent ability while sitting Walking: pt demo the ability to ambulate for 8 min 37 sec. with a antalgic short step pattern. pt can ambulate on occasional ability. Standing: pt demo the ability to stand for 4 min shifting his body weight. pt can stand on occasional ability Sitting: pt demo the ability to sit for 45 min with no apparent or expressed discomfort. pt can sit on frequent ability Climbing Stairs: pt demo the ability to ascend and descend ten steps with a reciprocal step pattern and use of hand rail. pt states he has a fear of his right leg giving out on him. Dynamic Occasional Lifting Capacity Floor Lift: pt demo the ability to lift 15# (+ box =15#) for a maximal lift of 30# with good lifting mechanics from this level. Knee Lift: Pt demo the ability to lift 30 (+ box =15#) for a maximal lift ability of 45# with good lifting mechanics. pt d/c leg fatigue in gluteal and hamstrings Waist Lift: Pt demo the ability to lift 30 (+ box =15#) for a maximal lift ability of 45# with good lifting mechanics. pt d/c leg fatigue in gluteal and hamstrings Shoulder Lift: Pt demo the ability to lift 15 (+ box =15#) for a maximal lift ability of 30# with good lifting mechanics. pt d/c leg fatigue in gluteal and hamstrings Overhead Lift: pt demo the ability to lift 10# overhead with good ability Carryin# for 40 feet with slow shuffle antalgic step pattern Comments: heart rate 82 pt states following lift he was feeling fatigue and out of shape from not working.
--- NOTE | 2025-02-18 18:14 | HP.OTFCE.D ---
FCE D/C Summary Discharge text: DENNIS Ina ANAYA was seen for a one time visit for an FCE on 02/18/25 and is discharged.
== END 2025-02-18 19:00 | disposition home or self-care (01) ==
LOC: OT 14:57
PROVIDERS: PCP Physician Assistant; Referring Provider Specialist; Visit Provider Specialist
DX: T84.84XD Pain due to internal orthopedic prosthetic devices, implants and grafts, subsequent encounter (principal); M61.59 Other ossification of muscle, multiple sites; Z96.641 Presence of right artificial hip joint
CPT/HCPCS: 97750

== ENCOUNTER 2025-05-08 13:41 | Emergency (ER) | payer BC, SELFPAY ==
[2025-05-08 13:42] VITALS: BP 174/100; PULSE 99; RESP 18; TEMP 37; O2SAT 99; BMI 26.2
[2025-05-08 14:40] LABS: Hematocrit 39.2 % (40-54); Hemoglobin 13.4 g/dL (13.0-16.5); Immature Granulocytes Count 0.010 X10^3/uL (0.0-0.0); Mean Corp Hgb Conc 34.2 g/dL (32-36); Mean Corpuscular Volume 69.1 fL (80-94); Mean Platelet Vol. 9.6 fl (6.2-12.0); NRBC Flagged by Analyzer 0 % (0-5); Platelet Count 314 K/mm3 (150-450); RBC Distribution Width CV 16.2 % (11.6-14.6); RBC Distribution Width SD 38.5 fl (35.1-43.9); Red Blood Count 5.67 M/mm3 (4.6-6.2); White Blood Count 5.7 K/mm3 (4.4-11.0)
[2025-05-08 14:55] LABS: Mucous, Urine 0 SEEN /hpf (<or=2+)
[2025-05-08 15:05] LABS: Color, Urine Straw (Yellow); Glucose, Dipstick Normal (Normal); Ketone-Dipstick 15 mg/dl (Negative); Leukocyte Esterase-Dipstick Negative /ul (Negative); Nitrite-Dipstick Negative (Negative); Occult Blood-Urine 25 /ul (Negative); Protein-Dipstick 30 mg/dl (Negative); Specific Gravity, Urine 1.010 (1.002-1.030); Urine Bilirubin Dipstick Negative (Negative)
[2025-05-08 15:41] VITALS: BP 187/99; PULSE 83; O2SAT 99
[2025-05-08 15:55] LABS: Red Blood Cells-Urine 0-5 SEEN /hpf (0-5); Squamous Epithelial Cells - UA 0-5 SEEN /hpf (0-5)
[2025-05-08 16:02] LABS: AST(SGOT) 97 U/L (<=37); Alanine Aminotransfer ALT/SGPT 76 U/L (<=46); Albumin, Serum 4.7 g/dL (3.4-4.8); Alkaline Phosphatase 67 U/L (40-129); Anion Gap 14 (5-15); BUN 18 mg/dL (4-19); BUN/Creat Ratio 21.4 RATIO (10-20); Calcium,Total 10.1 mg/dL (7.6-11.0); Carbon Dioxide 28.1 mmol/L (21.0-32.0); Chloride 98 mmol/L (98-108); Estimated Creatinine Clearance 82.33 ml/min (50-250); Globulin 3.2 g/dL (2.2-4.2); Glucose 113 mg/dL (70-99); Potassium 4.1 mmol/L (3.3-5.1)
[2025-05-08 17:17] VITALS: BP 184/94; PULSE 68; RESP 16; TEMP 36.6; O2SAT 100
== END 2025-05-08 17:37 | disposition home or self-care (01) ==
PROVIDERS: Emergency Provider Emergency Medicine; PCP Physician Assistant; Visit Provider Emergency Medicine
DX: F41.9 Anxiety disorder, unspecified (principal); E78.00 Pure hypercholesterolemia, unspecified; Z87.891 Personal history of nicotine dependence; F32.A Depression, unspecified; I10 Essential (primary) hypertension; Z79.899 Other long term (current) drug therapy; Z79.82 Long term (current) use of aspirin; Z96.643 Presence of artificial hip joint, bilateral
CPT/HCPCS: 80053; 81001; 84443; 85025; 93005; 99283; A4216